=== PATIENT | male | born 1960 | race Caucasian/White ===

== ENCOUNTER → 2018-01-04 11:10 | Outpatient (CLI) | payer BC, SELFPAY ==
[2018-01-04 11:37] LABS: Alanine Aminotransferase 37 U/L (12-78); Albumin Level 4.3 gm/dL (3.4-5.0); Alkaline Phosphatase 77 U/L (46-116); Anion Gap 10.9 mEq/L (5-15); Aspartate Amino Transferase 18 U/L (15-37); Bilirubin,Direct 0.3 mg/dL (0.0-0.2); Bilirubin,Total 1.5 mg/dL (0.2-1.0); Blood Urea Nitrogen 13 mg/dL (7-18); Carbon Dioxide 29 mmol/L (21.0-32.0); Chloride 101 mmol/L (98-107); Chol/HDL Ratio 5.3 (1-3.5); Cholesterol 165 mg/dL (140-200); Creatinine,Serum 1.06 mg/dL (0.70-1.30); Estimated Glomerular Filt Rate 72 ml/min (>60); GFR (African American) 87 ML/MIN (>60); Glucose 108 mg/dL (74-106); HDL Cholesterol 31 mg/dL (27-67); LDL Cholesterol 64 mg/dL (0-130); Potassium 3.9 mmoL/L (3.5-5.1); Sodium 137 mmol/L (136-145); Total Protein,Serum 8.1 gm/dL (6.4-8.2); Triglycerides 352 mg/dL (30-200); VLDL Cholesterol 70 mg/dL (0-40)
== END ==
PROVIDERS: Visit Provider Internal Medicine Cardiovascular Disease
DX: I25.10 Atherosclerotic heart disease of native coronary artery without angina pectoris (principal); I10 Essential (primary) hypertension; E78.5 Hyperlipidemia, unspecified; I51.9 Heart disease, unspecified; I27.20 Pulmonary hypertension, unspecified; Z95.5 Presence of coronary angioplasty implant and graft; G47.33 Obstructive sleep apnea (adult) (pediatric)
CPT/HCPCS: 36415; 80048; 80061; 80076

== ENCOUNTER → 2018-01-17 08:58 | Outpatient (CLI) | payer BC, SELFPAY ==
[2018-01-17 10:17] LABS: Chol/HDL Ratio 5.4 (1-3.5); Cholesterol 150 mg/dL (140-200); HDL Cholesterol 28 mg/dL (27-67); LDL Cholesterol 82 mg/dL (0-130); Triglycerides 200 mg/dL (30-200); VLDL Cholesterol 40 mg/dL (0-40)
== END ==
PROVIDERS: Visit Provider Physician Assistant
DX: E78.5 Hyperlipidemia, unspecified (principal); I10 Essential (primary) hypertension; Z95.5 Presence of coronary angioplasty implant and graft; I25.10 Atherosclerotic heart disease of native coronary artery without angina pectoris; I51.9 Heart disease, unspecified; I27.20 Pulmonary hypertension, unspecified
CPT/HCPCS: 36415; 80061

== ENCOUNTER → 2019-03-20 09:13 | Outpatient (CLI) | payer BC, SELFPAY ==
[2019-03-20 11:08] LABS: Alanine Aminotransferase 33 U/L (12-78); Albumin Level 4.2 gm/dL (3.4-5.0); Alkaline Phosphatase 70 U/L (46-116); Aspartate Amino Transferase 17 U/L (15-37); Bilirubin,Direct 0.1 mg/dL (0.0-0.2); Bilirubin,Indirect 0.7 mg/dL (0.0-0.9); Bilirubin,Total 0.8 mg/dL (0.2-1.0); Chol/HDL Ratio 5.2 (1-3.5); Cholesterol 150 mg/dL (140-200); HDL Cholesterol 29 mg/dL (27-67); LDL Cholesterol 73 mg/dL (0-130); Total Protein,Serum 7.7 gm/dL (6.4-8.2); Triglycerides 238 mg/dL (30-200); VLDL Cholesterol 48 mg/dL (0-40)
== END ==
PROVIDERS: Visit Provider Internal Medicine Cardiovascular Disease
DX: E78.5 Hyperlipidemia, unspecified (principal); I25.10 Atherosclerotic heart disease of native coronary artery without angina pectoris; G47.33 Obstructive sleep apnea (adult) (pediatric); I10 Essential (primary) hypertension; I27.20 Pulmonary hypertension, unspecified; I51.89 Other ill-defined heart diseases; R94.31 Abnormal electrocardiogram [ECG] [EKG]; Z95.5 Presence of coronary angioplasty implant and graft; E11.9 Type 2 diabetes mellitus without complications
CPT/HCPCS: 36415; 80061; 80076

== ENCOUNTER 2019-04-02 14:45 | Outpatient (RCR) | payer BC, SELFPAY | END 2019-06-27 15:33 | disposition home or self-care (01) | LOC: PT 14:45 | PROVIDERS: Visit Provider Family Medicine | DX: I25.10 Atherosclerotic heart disease of native coronary artery without angina pectoris (principal) | CPT/HCPCS: 93798 ==

== ENCOUNTER → 2019-07-01 09:21 | Outpatient (CLI) | payer BC, SELFPAY ==
[2019-07-01 11:06] LABS: Alanine Aminotransferase 37 U/L (12-78); Albumin Level 4.1 gm/dL (3.4-5.0); Alkaline Phosphatase 59 U/L (46-116); Aspartate Amino Transferase 15 U/L (15-37); Bilirubin,Direct 0.1 mg/dL (0.0-0.2); Bilirubin,Indirect 0.7 mg/dL (0.0-0.9); Bilirubin,Total 0.8 mg/dL (0.2-1.0); Chol/HDL Ratio 4.9 (1-3.5); Cholesterol 128 mg/dL (140-200); HDL Cholesterol 26 mg/dL (27-67); LDL Cholesterol 66 mg/dL (0-130); Total Protein,Serum 7.2 gm/dL (6.4-8.2); Triglycerides 179 mg/dL (30-200); VLDL Cholesterol 36 mg/dL (0-40)
== END ==
PROVIDERS: Visit Provider Internal Medicine Cardiovascular Disease
DX: E78.5 Hyperlipidemia, unspecified (principal); I25.10 Atherosclerotic heart disease of native coronary artery without angina pectoris; I51.89 Other ill-defined heart diseases
CPT/HCPCS: 36415; 80061; 80076

== ENCOUNTER → 2019-09-24 06:16 | Outpatient (CLI) | payer BC, SELFPAY ==
--- NOTE | 2019-09-24 | CA_ITS ---
APPROVED REPORT Exam: Exercise Treadmill Technologist: Emelyn Thompson Ht: 5 ft 10 in Wt: 235 lbs BSA: 2.24 m2 HR: 62 bpm BP: 134/80 mmHg Indications: CAD Medical History Medications: Aspirin,,,,, Metoprolol,,,,, Simvastatin,,,,, Coenzyme,,,,, Losartan,,,,, Pantoprazole,,,,, CloPIdogrel,,,,, ICOSAPENT,,,,, Stress Test Details Test: Vishal HR Resting HR: 70 bpm Max Heart Rate (APMHR): 163 bpm Max HR Achieved: 146 bpm Target HR (85% APMHR): 138 bpm % of APMHR: 89 Recovery HR: 93 bpm BP Resting BP: 134.0/80.0 mmHg Max BP: 157.0/89.0 mmHg Recovery BP: 157.0/89.0 mmHg ECG Clinical Exercise duration: 07:32 min Highest Stage Achieved: Exercise capacity: 10.1 METs Stress ECG Conclusion Resting ECG: Sinus rhythm Vishal protocol completed. Patient exercised 07:32. Test stopped due to dizziness. Symptoms: Complained of dizziness at peak exercise. Resolved in recovery. No chest pain. No shortness of breath. Arrhythmias/Ectopy: No ectopy noted. ST-T Changes: less than 1.[address] depression. Conclusion: Images to follow. Test Summary REST . . . . . . . Sitting REST 09:19 0.0 0.0 70 . 134/ 80 . . Stage 1 01:00 10.0 1.7 84 . . . . Stage 1 02:00 10.0 1.7 97 . . . . Stage 1 03:00 10.0 1.7 100 . 138/ 82 . . Stage 2 01:00 12.0 2.5 110 . . . . Stage 2 02:00 12.0 2.5 123 . . . . Stage 2 03:00 12.0 2.5 130 . 140/ 82 . . Stage 3 01:00 14.0 3.4 140 . . . . Stage 3 01:32 14.0 3.4 145 . . . Stop exercise at 07:32 RECOVERY 01:00 0.0 0.0 132 . 154/ 80 . . RECOVERY 02:00 0.0 0.0 116 . 154/ 80 . . RECOVERY 03:00 0.0 0.0 105 . 143/ 84 . . RECOVERY 04:00 0.0 0.0 98 . 143/ 84 . . RECOVERY 04:33 0.0 0.0 92 . 157/ 89 . . Electronically signed by : Elmer Galarza, 09/25/2019 10:06:40
--- NOTE | 2019-09-24 06:18 | CA_ITS ---
APPROVED REPORT EXAM: Comprehensive 2D, Doppler, and color-flow Echocardiogram Ring Facer: Mackenzie Worthington RVT Ht: 5 ft 7 in Wt: 236lbs BSA: 2.17 BP: 129/72 mmHg Indications: Shortness of Breath, Diabetes, CAD, Hyperlipidemia, Hypertension,Stents,CARLOS,Pul HTN 2D Dimensions LVOT 2.04 cm (M/F) 1.5-2.5 M-Mode Dimensions RVDd 2.33 cm (0.9-2.6) LA Diam 3.40 cm (1.9-4.0) LVDd 5.30 cm (3.5-5.7) Ao Diam 3.20 cm (2.0-3.7) LVDs 2.67 cm (3.5-5.7) AV Cusp 2.40 cm (1.5-2.6) IVSd 0.80 cm (0.6-1.1) PWd 0.65 cm (0.6-1.1) EF (Teich) 80.60% FS 49.60% EDV (Teich) 135.30 mL ESV (Teich) 26.30 mL LV Diastology E/A Ratio 0.88 Mitral Valve MV A Velocity 50.00 (40-130 cm/s) Left Ventricle Left atrium is mildly enlarged, left ventricle is normal size, mild concentric left ventricular hypertrophy, visually estimated ejection fraction 55% with no regional wall motion abnormality. Grade 1 diastolic dysfunction seen without tissue Doppler evidence of raise left atrial pressure. Right Ventricle Right atrium and right ventricle moderately enlarged with normal contractility. Aortic Valve Aortic valve is minimally thickened and fibrosed, there is no aortic stenosis or aortic insufficiency. Mitral Valve Mitral valve is grossly normal, there is mild mitral regurgitation. Tricuspid Valve Tricuspid valve is grossly normal, there is mild tricuspid regurgitation. Tricuspid regurgitation jet velocity is inadequate for calculation of the right ventricular systolic pressure. Pulmonic Valve Pulmonic valve is poorly visualized. Cannot exclude pulmonic valve vegetation. Bio-prosthetic pulmonic valve is present. Great Vessels Aortic root is normal size. Pericardium No significant pericardial effusion noted. Conclusion 1. Biatrial enlargement, normal left ventricular size, mild concentric left ventricular hypertrophy, visually estimated ejection fraction 55% with no regional wall motion abnormality. Grade 1 diastolic dysfunction seen without tissue Doppler evidence of raise left atrial pressure. 2. Right atrium and right ventricle moderately enlarged with normal contractility. 3. The aortic valve is minimally thickened and fibrosed. There is no aortic stenosis aortic insufficiency. 4. Mild mitral and tricuspid regurgitation. 5. No significant pericardial effusion noted. Electronically signed by : Elmer Galarza, 09/25/2019 15:00:20
--- NOTE | 2019-09-24 06:39 | NM_ITS ---
APPROVED REPORT Exam: Nuclear Stress Test Indication: Chest pain, SOB, HTN, High choletsterol, Family History, CAD Patient Location: Outpatient Stress Tech: Emelyn Thompson PA Tech:Olivia Reno, ARRT, RT (R)(N) Ht: 5 ft 10 in Wt: 235 lbs HR: 62 bpm BP: 134/80 mmHg BSA: 2.24 m2 BMI: 33.7 History: Chest pain, SOB, HTN, High choletsterol, Family History, CAD Procedure: Patient exercised on Vishal protocol 7:32 minutes and sec, resting heart rate 62 bpm, resting blood pressure 134/80 mmHg, with exercise maximum heart rate achived was 146 bpm which is Greater than 85 % of the maximum predicted heart rate and blood pressure was 154/80 mmHg. Test was stopped due to dizziness. Patient denied any complaint of chest pain. Patient has Good exercise capacity, achieved 10.1 METs of workload on treadmill, the blood pressure response to exercise was Adequate. Electrocardiogram Resting electro cardiogram showed sinus rhythm, with exercise there is less than 1.[address] segment depression noted from the baseline EKG. The EKG portion of the exercise Myoview is negative for ischemia. Cardiac Stress and Resting SPECT Images: Cardiac Stress and Resting SPECT images were obtained using technetium 99m Myoview 31.8 mCi stress and 10.47 mCi at rest. Gated SPECT with analysis of segmental wall motion and calculation of the ejection fraction also done. Cardiac stress and resting SPECT images show uniform myocardial activity without segmental perfusion abnormality, computer derived ejection fraction is over 65% with no regional wall motion abnormality, right ventricle is normal size and contractility. Conclusion: 1. The EKG portion of the exercise Myoview is negative for ischemia, patient has good exercise capacity achieved 10.1 mets of workload on treadmill, the blood pressure response to exercise was adequate, there was no exercise-induced chest discomfort. 2. No scintigraphic evidence of reversible ischemia seen, computer derived ejection fraction is over 65% with no regional wall motion abnormality, right ventricle is normal size and contractility. 3. Normal exercise Myoview study. Electronically signed by : Elmer Galarza, 09/25/2019 10:11:46
--- NOTE | 2019-09-24 07:10 | HMH.ITSHM ---
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 []SIMVASTATIN PANTOPRAZOLE METOPROLOL LOSARTAN ICOSAPENT COENZYME CLOPIDOGREL ASA
== END ==
PROVIDERS: PCP Family Medicine; Visit Provider Nurse Practitioner Family
DX: R07.89 Other chest pain (principal); R06.09 Other forms of dyspnea; I25.10 Atherosclerotic heart disease of native coronary artery without angina pectoris; I27.20 Pulmonary hypertension, unspecified; E78.2 Mixed hyperlipidemia; E11.9 Type 2 diabetes mellitus without complications; I10 Essential (primary) hypertension; G47.33 Obstructive sleep apnea (adult) (pediatric); Z95.5 Presence of coronary angioplasty implant and graft
CPT/HCPCS: 78452; 93017; 93306; A9502

== ENCOUNTER → 2020-04-14 07:44 | Outpatient (CLI) | payer BC, SELFPAY ==
--- NOTE | 2020-04-14 | CA_ITS ---
APPROVED REPORT Exam: Pharmacologic Technologist: Mindi Josue Ht: 5 ft 9 in Wt: 237 lbs BSA: 2.22 m2 HR: 53 bpm BP: 134/81 mmHg Indications: SOB Medical History Medications: coenzyme, levocetirizine, asa, losartan, metoprolol, clopidogrel, pantoprazole, simvastatin Allergies: Icosapent ethyl Cardiac Risk Factors: HTN, Hyperlipidemia Stress Test Details Test: Kristyn HR Resting HR: 53 bpm Max Heart Rate (APMHR): 162 bpm Max HR Achieved: 80 bpm Target HR (85% APMHR): 137 bpm % of APMHR: 49 Recovery HR: 69 bpm BP Resting BP: 134/81 mmHg Max BP: 141/80 mmHg Recovery BP: 124.0/89.0 mmHg ECG Resting ECG: Sinus Bradycardia Clinical Exercise duration: 04:01 min Highest Stage Achieved: Exercise capacity: 1.0 METs Stress ECG Conclusion Brief SOA and malaise. No chest pain. No ectopy. No significant ST changes, Unremarkable Lexiscan. Images reported separtely. Test Summary REST . . . . . . . Resting REST 02:27 . . 57 . 134/ 81 . . Stage 1 01:00 . . 74 . . . . Stage 2 01:00 . . 72 . 141/ 80 . . Stage 3 01:00 . . 71 . 136/ 77 . . Stage 4 01:00 . . 74 . 122/ 76 . . Stage 4 01:01 . . 74 . 122/ 76 . Stop exercise at 04:01 RECOVERY 01:00 . . 69 . . . . RECOVERY 02:00 . . 66 . 129/ 85 . . RECOVERY 03:00 . . 61 . 129/ 85 . . RECOVERY 03:30 . . 63 . 139/ 79 . . Electronically signed by : Elmer Galarza, 04/15/2020 09:27:11
--- NOTE | 2020-04-14 07:44 | NM_ITS ---
APPROVED REPORT Exam: Nuclear Stress Test Indication: Chest pain, SOB, HTN, CAD, Hx of [place], High cholesterol, Former tobacco use, Family history Patient Location: Outpatient Stress Tech: Shameka Salas [place] Tech:Olivia Reno, ARRT, RT (R)(N) Ht: 5 ft 9 in Wt: 237 lbs HR: 53 bpm BP: 134/81 mmHg BSA: 2.22 m2 BMI: 34.9 History: Chest pain, SOB, HTN, CAD, Hx of [place], High cholesterol, Former tobacco use, Family history Procedure: Patient received a 0.4 mg of intravenous Lexiscan, resting heart rate 53 bpm, resting blood pressure 134/81 mmHg, with Lexiscan maximum heart rate achived was 75 bpm which is Less than 85 % of the maximum predicted heart rate and blood pressure was 141/80 mmHg. With Lexiscan, patient denied any complaint of chest pain. Electrocardiogram Resting electrocardiogram showed sinus rhythm, with Lexiscan there is less than 1.[address] segment depression noted from the baseline EKG. The EKG portion of the Lexiscan Myoview is nondiagnostic. Cardiac Stress and Resting SPECT Images: Cardiac Stress and Resting SPECT images were obtained using technetium 99m Myoview 30.8 mCi stress and 10.12 mCi at rest. Gated SPECT with analysis of segmental wall motion and calculation of the ejection fraction also done. Cardiac stress and resting SPECT images show a fixed defect in the apex with normal contractility on gated SPECT is likely secondary to apical thinning, no reversible ischemia seen. Computer derived ejection fraction is 64% with no regional wall motion abnormality, right ventricle is normal size and contractility. Conclusion: 1. The EKG portion of the Lexiscan Myoview is nondiagnostic. 2. No scintigraphic evidence of reversible ischemia seen, computer derived ejection fraction 64% with no regional wall motion abnormality, right ventricle is normal size and contractility. 3. Likely normal Lexiscan Myoview study. Electronically signed by : Elmer Galarza, 04/15/2020 09:30:22
--- NOTE | 2020-04-14 09:14 | HMH.ITSHM ---
Current Home Medications as stated by this patient Rudi Hyman or statement services representative. []SIMVASTATIN PANTOPRAZOLE METOPROLOL LOSARTAN LEVOCETIRIZINE COENZYME CLOPIDOGREL ASA
== END ==
PROVIDERS: PCP Family Medicine; Visit Provider Internal Medicine Cardiovascular Disease
DX: R06.09 Other forms of dyspnea (principal); R94.31 Abnormal electrocardiogram [ECG] [EKG]; E11.9 Type 2 diabetes mellitus without complications; E78.2 Mixed hyperlipidemia; I10 Essential (primary) hypertension; I25.10 Atherosclerotic heart disease of native coronary artery without angina pectoris; I27.20 Pulmonary hypertension, unspecified; G47.33 Obstructive sleep apnea (adult) (pediatric); Z95.5 Presence of coronary angioplasty implant and graft
CPT/HCPCS: 78452; 93017; A9502; J2785

== ENCOUNTER 2020-07-10 13:45 | Emergency (ER) | payer BC, SELFPAY ==
[2020-07-10 14:28] VITALS: BP 122/74; PULSE 68; RESP 19; TEMP 36.6; O2SAT 97; BMI 32.1
--- NOTE | 2020-07-10 15:06 | HMH.EDUTC ---
[facility] Disposition Clinical Impression: Wasp sting Qualifiers: Encounter type: initial encounter Injury intent: accidental or unintentional Qualified Code(s): T63.461A - Toxic effect of venom of wasps, accidental (unintentional), initial encounter Disposition: Home, Self-Care Condition on Discharge: Good Instructions: Insect Bites and Stings Additional Instructions: Drink plenty of fluids. Take tylenol or ibuprofen for pain. Take the medications as directed. Follow up with your regular doctor. GO TO THE ER FOR ANY WORSENING SYMPTOMS Don't start the oral steroids until tomorrow, since you had the shot here today. Prescriptions: methylPREDNISolone [Medrol] 4 mg PO DIRECTED 6 Days #21 [email or web address] Transmission Status: Received by [facility] Referrals: Philipp Schwarz MD [Primary Care Provider] - Time of Disposition: 15:10 Medical Decision Making - Medical Records Medical records reviewed: No: I reviewed the patient's medical records. - Maik Inquiry Pt receiving controlled substance: No Vital Signs: 07/10/20 14:28 07/10/20 15:30 Temperature 97.8 F 97.8 F Temperature Source Oral Pulse Rate 68 Pulse Rate [Right Brachial] 68 Respiratory Rate 19 19 Blood Pressure 122/74 Blood Pressure [Right Arm] 122/74 Blood Pressure Mean [Right Arm] 90 Blood Pressure Source [Right Arm] Automatic Cuff Blood Pressure Position [Right Arm] Sitting 02 Sat by Pulse Oximetry 97 Oxygen Delivery Method Room Air Orders (Tests/Meds): ED MEDICATIONS Discontinued Medications Generic Name Dose Route Start Last Admin Trade Name Freq PRN Reason Stop Dose Admin Methylprednisolone Sodium Succinate 125 mg 07/10/20 14:42 07/10/20 14:46 Solu-Medrol 125mg/2ml Vial IM 07/10/20 14:43 125 mg ONCE ONE Administration [facility] HPI - General Stated complaint: Wasp sting, swollen neck Time Seen by Provider: 07/10/20 14:30 Mode of Arrival: Ambulatory Source of Information: Patient Limitations: No Limitations Description of Symptoms (Recalled from Triage Doc. by RN): PATIENT C/O SWELLING IN HIS NECK AFTER GETTING STUNG BY A WASP ON HIS LEFT EAR YESTERDAY HEENT Symptoms (Recalled from RN notes): No Resp Symptoms (Recalled from RN notes): No Skin Symptoms (Recalled from RN notes): No MS Symptoms (Recalled from RN notes): No Functional Status (Recalled from RN notes): WNL - History of Present Illness Provider Complaint: He c/o swelling on the left side of his face and neck. He was stung by a wasp on his left ear yesterday. - Related Data Home Medications Medication Instructions Recorded Confirmed aspirin 81 mg tablet,delayed 81 mg PO ONCE tab 12/27/17 06/03/20 release coenzyme Q10 10 mg capsule 10 mg PO ONCE 12/28/17 06/03/20 levocetirizine 5 mg tablet 5 mg PO QPM PRN 04/08/20 06/03/20 Previous Rx's Medication Instructions Recorded clopidogrel 75 mg tablet 75 mg PO DAILY #90 tab 07/23/19 simvastatin 40 mg tablet 40 mg PO DAILY #90 tab 07/23/19 metoprolol tartrate 25 mg tablet 25 mg PO ONCE #90 tab 12/05/19 losartan 50 mg tablet 50 mg PO DAILY #30 tab 04/29/20 ranolazine 500 mg tablet,extended 500 mg PO BID #60 tab 04/29/20 release,12 hr pantoprazole 40 mg tablet,delayed 40 mg PO DAILY #90 tab 05/31/20 release methylPREDNISolone [Medrol] 4 mg PO DIRECTED 6 Days #21 07/10/20 tab.[email or web address] Allergies Allergy/AdvReac Type Severity Reaction Status Date / Time icosapent ethyl AdvReac Intermediate myalgias Verified 06/03/20 13:31 [From [place]] - Worker's Comp Is this a Worker's Comp case?: No H History - Hepatitis A Screen Drug use history?: No High risk sexual behaviors?: No History of sexually transmitted infection?: No Currently employed?: No Childcare worker?: No Do you have indoor plumbing?: Yes Do you have electricity?: Yes Attestation statement:: This patient has been screened for Hepatitis A risk factors. I have reviewed the pat
[2020-07-10 15:30] VITALS: BP 122/74; PULSE 68; RESP 19; TEMP 36.6; O2SAT 97
== END 2020-07-10 15:33 | disposition home or self-care (01) ==
PROVIDERS: Emergency Provider Nurse Practitioner Family; PCP Family Medicine
DX: T63.461A Toxic effect of venom of wasps, accidental (unintentional), initial encounter (principal); I25.10 Atherosclerotic heart disease of native coronary artery without angina pectoris; E11.9 Type 2 diabetes mellitus without complications; K21.9 Gastro-esophageal reflux disease without esophagitis; I10 Essential (primary) hypertension; E78.5 Hyperlipidemia, unspecified; Z79.899 Other long term (current) drug therapy
CPT/HCPCS: 96372; 99201

== ENCOUNTER → 2020-09-09 10:50 | Outpatient (CLI) | payer BC, SELFPAY ==
--- NOTE | 2020-09-09 10:51 | CA_ITS ---
APPROVED REPORT EXAM: Comprehensive 2D, Doppler, and color-flow Echocardiogram Turn Machine Operator: Sarah Garcia CRT Ht: 5 ft 7 in Wt: 244lbs BSA: 2.20 BP: 109/76 mmHg Indications: Hyperlipidemia, Hypertension/HDD, CAD, stent, PHTN 2D Dimensions LVOT 1.85 cm (M/F) 1.5-2.5 M-Mode Dimensions RVDd 3.02 cm (0.9-2.6) LA Diam 3.30 cm (1.9-4.0) LVDd 4.49 cm (3.5-5.7) Ao Diam 3.77 cm (2.0-3.7) LVDs 2.51 cm (3.5-5.7) IVSd 1.48 cm (0.6-1.1) PWd 0.74 cm (0.6-1.1) EF (Teich) 75.50% FS 44.10% EDV (Teich) 92.00 mL ESV (Teich) 22.50 mL LV Diastology E Decel Time 260.00 (160-240 msec) E/A Ratio 0.99 MED E' 7.80 (< 7 cm/sec) E'/MED E' Ratio 7.97 (>14) LAT E' 6.90 (<10 cm/sec) E/LAT E' Ratio 9.01 (>14) Aortic Valve AO Peak GR. 4.80 mmHg Mitral Valve MV A Velocity 63.00 (40-130 cm/s) E/A Ratio 0.99 MV Decel. Time 260.00 (160-240 ms) Pulmonary Valve PV Peak Velocity 72.00 (50-150 cm/s) Tricuspid Valve TR P. Velocity 178.00 cm/s RAP Estimate 10.00 mmHg RVSP 22.70 mmHg Left Ventricle Left atrium is mildly enlarged, left ventricle is normal size, mild concentric left ventricular hypertrophy, visually estimated ejection fraction 55% with no regional wall motion abnormality, grade 1 diastolic dysfunction seen without tissue Doppler evidence of raise left atrial pressure. Right Ventricle Right atrium and right ventricle are mildly enlarged with normal contractility. Aortic Valve Aortic valve is minimally thickened and fibrosed, there is no aortic stenosis or aortic insufficiency. Mitral Valve Mitral valve is grossly normal, there is mild mitral regurgitation. Tricuspid Valve Tricuspid valve is grossly normal, there is mild tricuspid regurgitation, tricuspid regurgitation jet velocity is inadequate for calculation of the right ventricular systolic pressure. Pulmonic Valve Pulmonic valve is poorly visualized. Great Vessels Aortic root is normal size. Pericardium No significant pericardial effusion noted. Conclusion 1. Mild biatrial enlargement, normal left ventricular size, mild concentric left ventricular hypertrophy, visually estimated ejection fraction 55% with no regional wall motion abnormality, grade 1 diastolic dysfunction seen without tissue Doppler evidence of raise left atrial pressure. 2. Mildly enlarged right ventricle with normal contractility. 3. Mild mitral and tricuspid regurgitation. 4. No significant pericardial effusion noted. Electronically signed by : Elmer Galarza, 09/09/2020 16:12:59
[2020-09-09 12:51] LABS: Chloride 104 mmol/L (98-107); Sodium 141 mmol/L (136-145)
[2020-09-09 12:53] LABS: Blood Urea Nitrogen 11 mg/dl (9-20)
[2020-09-09 12:54] LABS: Alanine Aminotransferase 23 U/L (12-78); Albumin Level 4.3 g/dl (3.5-5.0); Alkaline Phosphatase 52 U/L (38-126); Aspartate Amino Transferase 25 U/L (17-59); Bilirubin,Direct 0.1 mg/dl (0.0-0.4); Bilirubin,Indirect 1.1 mg/dL (0.0-0.9); Bilirubin,Total 1.2 mg/dl (0.2-1.3); Bilirubin,Unconjugated 1.2 mg/dL (0.0-1.1); Calcium 8.8 mg/dl (8.4-10.2); Carbon Dioxide 29 mmol/L (22.0-30.0); Cholesterol 137 mg/dl (140-200); Estimated Glomerular Filt Rate 87 ml/min (>60); GFR (African American) 105 ML/MIN (>60); Glucose 112 mg/dl (74-100); Triglycerides 235 mg/dl (30-150); VLDL Cholesterol 47 mg/dL (0-40)
[2020-09-09 12:55] LABS: Chol/HDL Ratio 4.9 (1-3.5); HDL Cholesterol 28 mg/dl (40-60)
== END ==
PROVIDERS: PCP Family Medicine; Visit Provider Internal Medicine Cardiovascular Disease
DX: R06.00 Dyspnea, unspecified (principal); I25.10 Atherosclerotic heart disease of native coronary artery without angina pectoris; I27.20 Pulmonary hypertension, unspecified; I51.9 Heart disease, unspecified; E11.9 Type 2 diabetes mellitus without complications; E78.2 Mixed hyperlipidemia; I10 Essential (primary) hypertension; G47.33 Obstructive sleep apnea (adult) (pediatric); Z95.5 Presence of coronary angioplasty implant and graft
CPT/HCPCS: 36415; 80048; 80061; 80076; 93306

== ENCOUNTER → 2020-10-04 09:15 | Outpatient (CLI) | payer BC, SELFPAY ==
[2020-10-04 10:35] LABS: Basophils # 0.1 K/mm3 (0-0.2); Basophils % 0.9 % (0.1-2.0); Eosinophils % 0.6 % (0.1-12.0); Hematocrit 46.6 % (42.0-52.0); Hemoglobin 16.1 g/dL (14.1-18.0); Lymphocytes # 2.8 K/mm3 (0.7-4.5); Lymphocytes % 40.2 % (10-50); Mean Corpuscular HGB Conc 34.5 g/dL (31.8-35.4); Mean Corpuscular Hemoglobin 32.5 pg (27.0-31.2); Mean Corpuscular Volume 94.2 fl (80-94); Mean Platelet Volume 7.5 fl (7.4-10.4); Monocytes # 0.5 K/mm3 (0.1-1.0); Monocytes % 6.5 % (1.7-9.3); Neutrophils # 3.6 K/mm3 (1.8-7.8); Neutrophils % 51.8 % (37.0-80.0); Platelet Count 203 K/mm3 (142-424); Red Blood Count 4.95 M/mm3 (4.60-6.20); Red Cell Distribution Width 13.4 % (11.5-17.5)
[2020-10-04 11:05] LABS: Chloride 98 mmol/L (98-107); Sodium 138 mmol/L (136-145)
[2020-10-04 11:06] LABS: Potassium 4.4 mmoL/L (3.5-5.1)
[2020-10-04 11:08] LABS: Blood Urea Nitrogen 14 mg/dl (9-20); Estimated Glomerular Filt Rate 69 ml/min (>60); GFR (African American) 83 ML/MIN (>60)
[2020-10-04 11:09] LABS: Anion Gap 13.4 mEq/L (5-15); Calcium 9.7 mg/dl (8.4-10.2); Carbon Dioxide 31 mmol/L (22.0-30.0); Glucose 123 mg/dl (74-100)
[2020-10-04 11:26] LABS: Coronavirus 19 IgG Antibody Negative (Negative); Coronavirus 19 IgM Antibody Negative (Negative)
== END ==
PROVIDERS: Visit Provider Internal Medicine
DX: Z01.818 Encounter for other preprocedural examination (principal); I25.10 Atherosclerotic heart disease of native coronary artery without angina pectoris
CPT/HCPCS: 36415; 80048; 85025; 86328

== ENCOUNTER 2020-10-05 08:19 | Day surgery (SDC) | payer BC, SELFPAY ==
[2020-10-05] VITALS (13 sets, daily range): BP systolic 100–142; BP diastolic 47–97; PULSE 63–76; RESP 16–18; O2SAT 92–95; BMI 38.0
--- NOTE | 2020-10-05 | IR_ITS ---
APPROVED REPORT Patient Location: Outpatient PROCEDURES Left heart catheterization Left ventriculogram Selective coronary angiogram INDICATION Known coronary artery disease, Typical angina pectoris Informed consent was obtained prior to the procedure. COMPLICATIONS NONE Estimated Blood Loss: LESS THAN 10 ML TECHNIQUE One percent lidocaine used to anesthetize the right anterior aspect of the wrist. The right radial artery was accessed via the Seldinger technique. A 6 [place] sheath was placed in the right radial artery. 2.5 mg of verapamil, 800 mcg of nitroglycerin, 1mg Lidocaine and 5000 U Heparin were given through the arterial sheath. The trap catheter was also used to perform left heart catheterization, left ventriculogram and selective coronary angiogram. At the end of the procedure the sheath was removed good hemostasis was achieved using Traclet band, patient was transferred to the postop holding area in stable condition. ANGIOGRAPHIC RESULTS The left main artery Has a distal hazy 20% stenosis The left anterior descending artery Has a stent from the proximal through mid segment which has 50 to 60% in-stent restenosis distal to the first diagonal artery. The circumflex artery Is nondominant and has proximal 50% stenosis supplying a small obtuse marginal artery The right coronary artery Is a large dominant vessel and has proximal 30% with mid vessel 40% stenoses. Distally the stent in the right coronary artery is patent until the bifurcation which then has a 50% stenosis proximal to the large bifurcating vessels with an 80% concentric stenosis in a large proximal posterior descending artery and 60% stenosis in a large posterior lateral branch The LANGFORD ventriculogram reveals Normal 65% The left ventricular end-diastolic pressure 10 mm Hg IMPRESSION Coronary artery disease as described above Normal ejection fraction Normal left ventricular end-diastolic pressure PLAN 1. I am most concerned about the bifurcation involving the distal dominant large right coronary artery. Given the large amount of myocardium these two-vessel supply I would recommend patient be evaluated for coronary bypass surgery. While the LAD could be fairly easily stented I believe the STEINER graft to the LAD would probably be better long-term when considering the bifurcating disease involving the right coronary. I would like for patient to have CT surgery consultation. If the decision is to proceed with stenting patient can be brought back in the future for stenting as described 2. Continue risk factor modification 3. Continue antianginal medications Electronically signed by : Wilfred Win, 10/05/2020 11:06:34
== END 2020-10-05 13:23 | disposition home or self-care (01) ==
LOC: CATHLAB 08:21
PROVIDERS: PCP Family Medicine; Visit Provider Internal Medicine
DX: I25.118 Atherosclerotic heart disease of native coronary artery with other forms of angina pectoris (principal); T82.855A Stenosis of coronary artery stent, initial encounter; I11.0 Hypertensive heart disease with heart failure; I50.30 Unspecified diastolic (congestive) heart failure; I27.20 Pulmonary hypertension, unspecified; E11.9 Type 2 diabetes mellitus without complications; E78.5 Hyperlipidemia, unspecified; Z87.891 Personal history of nicotine dependence; Z79.82 Long term (current) use of aspirin; Z79.01 Long term (current) use of anticoagulants; Z79.899 Other long term (current) drug therapy
CPT/HCPCS: 93458; 99152; 99153; C1725; C1769; J1644; Q9967

== ENCOUNTER 2020-11-29 02:13 | Emergency (ER) | payer BC, SELFPAY ==
[2020-11-29 02:14] VITALS: BP 188/107; PULSE 88; RESP 16; TEMP 36.6; O2SAT 98; BMI 34.1
--- NOTE | 2020-11-29 02:32 | ECG_ITS ---
APPROVED REPORT Exam: Resting ECG HR:62 bpm ECG Measurements Heart Rate 62 AXES WI 146 P 47 QRSd 74 QRS 2 QT 416 T 2 QTc 422 Conclusion Normal sinus rhythm Left atrial abnormality Borderline ECG Electronically signed by : Philipp Mosher, 11/29/2020 19:37:03
--- NOTE | 2020-11-29 02:32 | XR_ITS ---
PROCEDURE: XR CHEST 2V CLINICAL HISTORY: post op double bypass Pain, nausea COMPARISON: CR CXR1 CHEST-PORTABLE from 06/17/2017 FINDINGS: There has been an interval median sternotomy. Right hemidiaphragm is slightly elevated. Atelectatic changes are present in both lower lobes. Patchy density is present in the left lung base and may be due to an area of atelectasis or infiltrate. No acute bony abnormalities. IMPRESSION: Bibasilar atelectasis. Patchy density left lung base which may be due to an area of atelectasis or infiltrate Dictated by: Doc Carrasquillo MD 11/29/2020 05:00 Doc Carrasquillo MD in [facility] 11/29/2020 05:00
--- NOTE | 2020-11-29 02:32 | CT_ITS ---
PROCEDURE: CT ABDOMEN PELVIS W CON CLINICAL INDICATION: RUQ pain Right upper quadrant pain nausea COMPARISON: No exams were available for comparison TECHNIQUE: IV Contrast: 75ML Isovue 370 Oral Contrast None Axial images obtained with sagittal and coronal reformats. All CT scans at the facility use one or more dose reduction, viz: automated exposure control, ma/kV adjustment per patient size (including targeted exams where dose is matched to indication, i.e. head), or iterative reconstruction technique. FINDINGS: LOWER THORAX: Prior median sternotomy. There are atelectatic changes in the lung bases. Multiple small calcified nodules are present in the right middle lobe and there are calcified nodes in the right hilum. Coronary artery calcifications and/or stents noted. ABDOMEN & PELVIS: Elevated right hemidiaphragm. There is a 4 mm hypodensity in the hepatic dome and may be due to small cyst. The spleen, adrenal glands, pancreas, and kidneys have an unremarkable appearance. There is colonic diverticulosis. No evidence of diverticulitis. No evidence of appendicitis. No intestinal obstruction or free air. Gallbladder is somewhat distended with mild thickening of the wall. No radiopaque stones are evident. Postsurgical changes are present from recent thoracotomy. No acute bony findings. IMPRESSION: 1. Distended gallbladder with mildly thickened wall. Acute cholecystitis is a consideration. Consider gallbladder ultrasound for further evaluation. 2. Colonic diverticulosis. No evidence of diverticulitis. 3. Bibasilar atelectasis Dictated by: Doc Carrasquillo MD 11/29/2020 05:17 Doc Carrasquillo MD in [facility] 11/29/2020 05:17
[2020-11-29 02:42] LABS: Basophils # 0.1 K/mm3 (0-0.2); Basophils % 0.4 % (0.1-2.0); Eosinophils # 0.1 K/mm3 (0.0-0.4); Eosinophils % 0.6 % (0.1-12.0); Hematocrit 43.1 % (42.0-52.0); Hemoglobin 13.9 g/dL (14.1-18.0); Lymphocytes # 2.3 K/mm3 (0.7-4.5); Lymphocytes % 15.8 % (10-50); Mean Corpuscular HGB Conc 32.3 g/dL (31.8-35.4); Mean Corpuscular Hemoglobin 30.4 pg (27.0-31.2); Mean Corpuscular Volume 94.2 fl (80-94); Mean Platelet Volume 8.4 fl (7.4-10.4); Monocytes # 0.9 K/mm3 (0.1-1.0); Neutrophils # 11.2 K/mm3 (1.8-7.8); Neutrophils % 77.2 % (37.0-80.0); Platelet Count 270 K/mm3 (142-424); Red Blood Count 4.58 M/mm3 (4.60-6.20); Red Cell Distribution Width 14.4 % (11.5-17.5); White Blood Count 14.5 K/mm3 (4.8-10.8)
[2020-11-29 02:44] VITALS: BP 186/95; PULSE 84; RESP 16; O2SAT 97
[2020-11-29 02:46] LABS: Chloride 101 mmol/L (98-107); Potassium 3.4 mmoL/L (3.5-5.1); Sodium 140 mmol/L (136-145)
[2020-11-29 02:49] LABS: Amylase 35 U/L (30-110); Anion Gap 13.4 mEq/L (5-15); Bilirubin,Unconjugated 0.8 mg/dL (0.0-1.1); Blood Urea Nitrogen 10 mg/dl (9-20); Carbon Dioxide 29 mmol/L (22.0-30.0); Creatinine Clearance Estimated 119 mL/min (50-200); Estimated Glomerular Filt Rate 77 ml/min (>60); GFR (African American) 93 ML/MIN (>60)
[2020-11-29 02:50] LABS: Alanine Aminotransferase 22 U/L (12-78); Albumin Level 4.7 g/dl (3.5-5.0); Alkaline Phosphatase 97 U/L (38-126); Aspartate Amino Transferase 23 U/L (17-59); Bilirubin,Direct 0.3 mg/dl (0.0-0.4); Bilirubin,Indirect 0.8 mg/dL (0.0-0.9); Bilirubin,Total 1.1 mg/dl (0.2-1.3); Calcium 9.7 mg/dl (8.4-10.2); Glucose 183 mg/dl (74-100); Lipase 49 U/L (23-300); Total Protein,Serum 8.6 g/dl (6.3-8.2)
[2020-11-29 02:55] LABS: C-Reactive Protein 46.2 mg/L (0-4)
--- NOTE | 2020-11-29 02:59 | PC.NURSE ---
pt to RAD
[2020-11-29 03:07] LABS: Troponin I < 0.01 ng/ml (0.00-0.034)
[2020-11-29 03:08] LABS: Coronavirus 19 IgG Antibody Negative (Negative); Coronavirus 19 IgM Antibody Negative (Negative)
[2020-11-29 03:15] LABS: Erythrocyte Sedimentation Rate 58 mm/hr (0-20)
--- NOTE | 2020-11-29 03:24 | PC.NURSE ---
pt returned from RAD
[2020-11-29 03:39] LABS: Microscopic, Urine URINE MICROSCOPIC (MICROSCOPIC)
[2020-11-29 03:40] LABS: Procalcitonin 0.061 ng/mL (0.0-2.0)
[2020-11-29 03:41] LABS: Appearance,Urine CLEAR (Clear); Bilirubin,Urine Negative (Negative); Blood, Urine Negative (Negative); Color,Urine YELLOW (Yellow); Glucose,Urine (UA) Negative (Negative); Ketones,Urine Negative (Negative); Leukocyte Esterase,Urine Negative (Negative); Nitrate,Urine Negative (Negative); PH,Urine 5.5 (5.0-8.5); Protein,Urine Negative (Negative); Specific Gravity, Urine 1.015 (1.005-1.030); Urobilinogen,Urine 0.2 EU/dl (0.2)
[2020-11-29 03:49] LABS: Amorphous Sediment,Urine Trace /lpf; WBC,Urine Occasional #/hpf (0-3)
--- NOTE | 2020-11-29 04:00 | HMH.EDNVD ---
ED Disposition Clinical Impression: S/P CABG (coronary artery bypass graft) Abdominal pain Qualifiers: Abdominal location: right upper quadrant Qualified Code(s): R10.11 - Right upper quadrant pain Disposition: Home, Self-Care Condition on Discharge: Good Instructions: DI for Acute Abdominal Pain Additional Instructions: call pcp this am Referrals: Philipp Schwarz MD [Primary Care Provider] - - Critical Care Critical Care Time: No Attestation: On 11/29/20, the high probability of a clinically significant, sudden or life threatening deterioration of the following system(s) required my full and direct attention, intervention and personal management. The time I documented below is in addition to time spent performing reported procedures but includes the following listed in this critical care notation. Medical Decision Making - Medical Records Medical records reviewed: Yes: I reviewed the patient's medical records. - Maik Inquiry Pt receiving controlled substance: No Vital Signs: 11/29/20 02:14 11/29/20 02:44 Temperature 97.9 F Temperature Source Oral Pulse Rate [Left Radial] 88 84 Respiratory Rate 16 16 Blood Pressure [Right Arm] 188/107 H 186/95 H Blood Pressure Mean [Right Arm] 134 125 Blood Pressure Source [Right Arm] Automatic Cuff Automatic Cuff Blood Pressure Position [Right Arm] Sitting Sitting 02 Sat by Pulse Oximetry 98 97 Oxygen Delivery Method Room Air Room Air - Lab Data Lab results reviewed: Yes: I reviewed the patient's lab results. Lab Results 11/29/20 02:30: Sodium 140, Potassium 3.4 L, Chloride 101, Carbon Dioxide 29, Anion Gap 13.4, BUN 10, Creatinine 1.00, Estimated Creat Clear 119, Estimated GFR 77, Est GFR ( Amer) 93, Glucose 183 H, Calcium 9.7, Troponin I < 0.01, C-Reactive Protein 46.2 H, Amylase 35 11/29/20 02:30: WBC 14.5 H, RBC 4.58 L, Hgb 13.9 L, Hct 43.1, MCV 94.2 H, MCH 30.4, MCHC 32.3, RDW 14.4, Plt Count 270, MPV 8.4, Neut % (Auto) 77.2, Lymph % (Auto) 15.8, Lewis % (Auto) 6.0, Eos % (Auto) 0.6, Baso % (Auto) 0.4, Neut # (Auto) 11.2 H, Lymph # (Auto) 2.3, Lewis # (Auto) 0.9, Eos # (Auto) 0.1, Baso # (Auto) 0.1, ESR 58 H 11/29/20 02:30: Total Bilirubin 1.1, Direct Bilirubin 0.3, Conjugated Bilirubin 0.0, Indirect Bilirubin 0.8, Unconjugated Bilirubin 0.8, AST 23, ALT 22, Alkaline Phosphatase 97, Total Protein 8.6 H, Albumin 4.7, Lipase 49 11/29/20 02:30: SARS-CoV-2 IgG Ab (Rapid) Negative, SARS-CoV-2 IgM Ab (Rapid) Negative 11/29/20 02:30: Procalcitonin 0.061 11/29/20 03:33: Urine Color Yellow, Urine Appearance Clear, Urine pH 5.5, Ur Specific Glidden 1.015, Urine Protein Negative, Urine Glucose (UA) Negative, Urine Ketones Negative, Urine Blood Negative, Urine Nitrate Negative, Urine Bilirubin Negative, Urine Urobilinogen 0.2, Ur Leukocyte Esterase Negative, Urine WBC Occasional, Amorphous Sediment Trace Result diagrams: 11/29/20 02:30 11/29/20 02:30 Orders (Tests/Meds): ED MEDICATIONS Generic Name Dose Route Start Last Admin Trade Name Freq PRN Reason Stop Dose Admin Sodium Chloride 1,000 mls @ 999 mls/hr 11/29/20 02:45 11/29/20 02:39 Sod Chlor 0.9% 1000ml Bag IV 11/29/20 03:45 999 mls/hr .Q1H1M ELEUTERIO Administration Sodium Chloride 8 ml 11/29/20 02:34 Sodium Chloride 0.9% 10ml Vial IV 12/29/20 02:33 NEEDED PRN dilute pepcid Discontinued Medications Generic Name Dose Route Start Last Admin Trade Name Freq PRN Reason Stop Dose Admin Famotidine 20 mg 11/29/20 02:34 11/29/20 02:39 Famotidine 20mg/2ml Vial IV 11/29/20 02:35 20 mg ONCE ONE Administration Iopamidol 75 ml 11/29/20 03:41 11/29/20 03:42 Iopamidol-370 (76%);100ml Bottle IV 11/29/20 03:42 75 ml ONCE ONE Administration Ketorolac Tromethamine 30 mg 11/29/20 03:36 11/29/20 03:41 Ketorolac 30mg/Ml Vial IV 11/29/20 03:37 30 mg ONCE ONE Administration Methylprednisolone Sodium Succinate 125 mg 11/29/20 03:36 11/29/20 03:41
[2020-11-29 04:12] VITALS: BP 160/93; PULSE 82; RESP 16; TEMP 36.7; O2SAT 99
== END 2020-11-29 04:15 | disposition home or self-care (01) ==
PROVIDERS: Emergency Provider Emergency Medicine; PCP Family Medicine
DX: R10.11 Right upper quadrant pain (principal); I10 Essential (primary) hypertension; E78.5 Hyperlipidemia, unspecified; K21.9 Gastro-esophageal reflux disease without esophagitis; Z01.84 Encounter for antibody response examination; Z95.1 Presence of aortocoronary bypass graft; Z79.899 Other long term (current) drug therapy
CPT/HCPCS: 71046; 74177; 80048; 80076; 81001; 82150; 83690; 84145; 84484; 85025; 85651; 86140; 86328; 93005; 96365; 96375; 99283; J2405; Q9967

== ENCOUNTER → 2020-12-08 08:11 | Outpatient (CLI) | payer BC, SELFPAY ==
--- NOTE | 2020-12-08 08:15 | US_ITS ---
PROCEDURE: US ABDOMEN LIMITED Referring Doctor: Philipp Schwarz Patient Age:59Y CLINICAL INDICATION: RUQ PAIN Recent CABG COMPARISON: CT CT ABDOMEN PELVIS W CON from 11/29/2020 FINDINGS: The difficult exam due to patient's body habitus GALLBLADDER: Multiple small GALLSTONES towards the neck of the gallbladder. Also thick sludge and diffuse echogenic material throughout the gallbladder. Gallbladder distended measuring at least 11 cm length,. Mild diffuse gallbladder wall thickening,. . No pericholecystic fluid,...-. Overall findings suggestive of cholecystitis which most likely mainly chronic in nature. . Common duct satisfactory a generous but not significant dilated. It measures up to 7.3 mm of just below the hilum of the liver LIVER: No focal liver lesions demonstrated. Homogeneous echogenicity. No intrahepatic biliary ductal dilatation evident. There is appropriate direction of blood flow within a non dilated portal vein PANCREAS: Not well seen but unremarkable. No obvious mass or abnormal fluid collection. No ductal dilatation RIGHT KIDNEY: No hydronephrosis nor mass. Kidneys normal size and and echogenicity.. Nearly 11 cm length right kidney with overall cortex adequate. IMPRESSION: Distended gallbladder with thick sludge and multiple small gallstones . Mild diffuse gallbladder wall thickening; but no pericholecystic fluid.. Common duct generous-but is normal To Upper Normal caliber, with no intrahepatic biliary ductal dilatation.. Liver, right kidney unremarkable. Pancreas not well visualized but unremarkable Dictated by: Brando Huddleston MD 12/08/2020 11:55 Brando Huddleston MD in [place] 12/08/2020 11:55
--- NOTE | 2020-12-08 08:44 | CA_ITS ---
APPROVED REPORT EXAM: Comprehensive 2D, Doppler, and color-flow Echocardiogram Chief Environmental Commitment Officer: Sobeida Atkins RCS, RVS Ht: 5 ft 9 in Wt: 224lbs BSA: 2.17 BP: 115/64 mmHg Indications: cad, s/p cabg-10/2020,dd, phtn,catalina 2D Dimensions IVSd 1.07 cm M: 0.6-1.2 LVEF (Visual) 35.10 % PWd 0.78 cm M: 0.6 - 1.2 LVDd 4.00 cm M: 4.2 - 5.9 LVDs 3.34 cm M: 2.5 - 4.0 Aortic Root 3.28 cm M: 3.1 - 3.7 Left Atrium 2.86 cm M: 3.0 - 4.0 LVOT 1.68 cm (M/F) 1.5-2.5 M-Mode Dimensions LA Diam 3.26 cm (1.9-4.0) LVDd 4.43 cm (3.5-5.7) Ao Diam 3.33 cm (2.0-3.7) LVDs 3.00 cm (3.5-5.7) EF (Teich) 55.00% EPSs 0.22 cm FS 20.30% EDV (Teich) 89.10 mL ESV (Teich) 60.00 mL LV Diastology E Decel Time 230.00 (160-240 msec) E/A Ratio 0.7 MED E' 5.60 (< 7 cm/sec) MED A' 7.50 cm/s E'/MED E' Ratio 10.52 (>14) LAT E' 7.50 (<10 cm/sec) LAT A' 10.00 cm/s E/LAT E' Ratio 7.85 (>14) Aortic Valve AO Peak GR. 4.60 mmHg Mitral Valve MV E Max Juan. 59.00 (40-130 cm/s) MV A Velocity 80.00 (40-130 cm/s) E/A Ratio 0.74 MV Decel. Time 230.00 (160-240 ms) MV PHT 67.00 ms Pulmonary Valve PV Peak Velocity 80.00 (50-150 cm/s) VT End VMAX 205.00 cm/s Tricuspid Valve TR P. Velocity 231.00 cm/s RAP Estimate 10.00 mmHg RVSP 31.30 mmHg Left Ventricle Left atrium is mildly enlarged, left ventricle is normal size, mild concentric left ventricular hypertrophy, visually estimated ejection fraction 55% with no regional wall motion abnormality, endocardial surfaces are poorly visualized, there is abnormal septal motion, grade 1 diastolic dysfunction seen without tissue Doppler evidence of raise left atrial pressure. Right Ventricle Right atrium and right ventricle are mildly enlarged with normal contractility. Aortic Valve Aortic valve is minimally thickened and fibrosed, there is no aortic stenosis or aortic insufficiency. Mitral Valve Mitral valve is grossly normal, there is mild mitral regurgitation. Tricuspid Valve Tricuspid valve is grossly normal, there is mild tricuspid regurgitation. Tricuspid regurgitation jet velocity is inadequate for calculation of the right ventricular systolic pressure. Pulmonic Valve Pulmonic valve is minimally thickened, there is mild pulmonic insufficiency. Great Vessels Aortic root is normal size. Pericardium No significant pericardial effusion noted. Conclusion 1. Mild biatrial enlargement, normal left ventricular size, mild concentric left ventricular hypertrophy, visually estimated ejection fraction 55%, there is abnormal septal motion, grade 1 diastolic dysfunction seen without tissue Doppler evidence of raise left atrial pressure. 2. Mildly enlarged right ventricle with normal contractility. 3. Mild mitral and tricuspid regurgitation. 4. No significant pericardial effusion noted. Electronically signed by : Elmer Galarza, 12/08/2020 18:02:15
[2020-12-08 10:28] LABS: Basophils # 0.1 K/mm3 (0-0.2); Basophils % 0.9 % (0.1-2.0); Eosinophils # 0.1 K/mm3 (0.0-0.4); Lymphocytes # 1.7 K/mm3 (0.7-4.5); Lymphocytes % 19.5 % (10-50); Mean Corpuscular HGB Conc 31.8 g/dL (31.8-35.4); Mean Corpuscular Hemoglobin 29.2 pg (27.0-31.2); Mean Platelet Volume 7.1 fl (7.4-10.4); Monocytes # 0.6 K/mm3 (0.1-1.0); Monocytes % 6.3 % (1.7-9.3); Neutrophils # 6.4 K/mm3 (1.8-7.8); Neutrophils % 72.2 % (37.0-80.0); Platelet Count 374 K/mm3 (142-424); Red Blood Count 4.46 M/mm3 (4.60-6.20); Red Cell Distribution Width 13.3 % (11.5-17.5); White Blood Count 8.8 K/mm3 (4.8-10.8)
[2020-12-08 10:30] LABS: Alanine Aminotransferase 29 U/L (12-78); Albumin Level 4.5 g/dl (3.5-5.0); Alkaline Phosphatase 83 U/L (38-126); Anion Gap 15.5 mEq/L (5-15); Aspartate Amino Transferase 30 U/L (17-59); Bilirubin,Direct 0.1 mg/dl (0.0-0.4); Bilirubin,Indirect 1.1 mg/dL (0.0-0.9); Bilirubin,Total 1.2 mg/dl (0.2-1.3); Bilirubin,Unconjugated 1.1 mg/dL (0.0-1.1); Blood Urea Nitrogen 14 mg/dl (9-20); Carbon Dioxide 29 mmol/L (22.0-30.0); Chloride 101 mmol/L (98-107); Cholesterol 131 mg/dl (140-200); Estimated Glomerular Filt Rate 99 ml/min (>60); GFR (African American) 120 ML/MIN (>60); Glucose 103 mg/dl (74-100); HDL Cholesterol 22 mg/dl (40-60); Potassium 4.5 mmoL/L (3.5-5.1); Sodium 141 mmol/L (136-145); Total Protein,Serum 7.7 g/dl (6.3-8.2); Triglycerides 175 mg/dl (30-150); VLDL Cholesterol 35 mg/dL (0-40)
[2020-12-08 11:02] LABS: Thyroid Stimulating Hormone 1.97 uIU/mL (0.465-4.68)
== END ==
PROVIDERS: Internal Medicine Cardiovascular Disease; PCP Family Medicine; Visit Provider Family Medicine
DX: R10.11 Right upper quadrant pain (principal); I10 Essential (primary) hypertension; E78.5 Hyperlipidemia, unspecified; G47.33 Obstructive sleep apnea (adult) (pediatric); Z95.1 Presence of aortocoronary bypass graft
CPT/HCPCS: 36415; 76705; 80048; 80061; 80076; 84439; 84443; 85025; 93306

== ENCOUNTER → 2020-12-08 09:28 | Outpatient (CLI) | payer BC, SELFPAY | PROVIDERS: Visit Provider Internal Medicine Cardiovascular Disease | DX: I25.10 Atherosclerotic heart disease of native coronary artery without angina pectoris (principal) | CPT/HCPCS: 36415; 80048; 80061; 80076; 84439; 84443; 85025 ==

== ENCOUNTER → 2021-01-17 08:35 | Outpatient (CLI) | payer BC, SELFPAY ==
[2021-01-17 09:07] LABS: Basophils % 0.8 % (0.1-2.0); Eosinophils # 0.1 K/mm3 (0.0-0.4); Eosinophils % 0.9 % (0.1-12.0); Hematocrit 39.7 % (42.0-52.0); Hemoglobin 13.3 g/dL (14.1-18.0); Lymphocytes % 36.5 % (10-50); Mean Corpuscular HGB Conc 33.6 g/dL (31.8-35.4); Mean Corpuscular Hemoglobin 29.9 pg (27.0-31.2); Mean Platelet Volume 8.3 fl (7.4-10.4); Monocytes # 0.4 K/mm3 (0.1-1.0); Monocytes % 6.3 % (1.7-9.3); Neutrophils # 3.1 K/mm3 (1.8-7.8); Neutrophils % 55.4 % (37.0-80.0); Platelet Count 206 K/mm3 (142-424); Red Blood Count 4.46 M/mm3 (4.60-6.20); Red Cell Distribution Width 14.7 % (11.5-17.5); White Blood Count 5.5 K/mm3 (4.8-10.8)
[2021-01-17 09:53] LABS: Chloride 105 mmol/L (98-107); Potassium 4.3 mmoL/L (3.5-5.1); Sodium 142 mmol/L (136-145)
[2021-01-17 09:55] LABS: Alanine Aminotransferase 30 U/L (12-78); Aspartate Amino Transferase 31 U/L (17-59); Blood Urea Nitrogen 11 mg/dl (9-20); Estimated Glomerular Filt Rate 99 ml/min (>60); GFR (African American) 120 ML/MIN (>60)
[2021-01-17 09:56] LABS: Albumin Level 4.4 g/dl (3.5-5.0); Albumin/Globulin Ratio 1.7 (1.1-1.8); Alkaline Phosphatase 78 U/L (38-126); Anion Gap 13.3 mEq/L (5-15); Calcium 9.4 mg/dl (8.4-10.2); Carbon Dioxide 28 mmol/L (22.0-30.0); Globulin 2.6 g/dL (1.3-3.2); Glucose 118 mg/dl (74-100)
[2021-01-17 10:33] LABS: Coronavirus 19 IgG Antibody Negative (Negative); Coronavirus 19 IgM Antibody Negative (Negative)
== END ==
PROVIDERS: Visit Provider Surgery
DX: Z01.818 Encounter for other preprocedural examination (principal); Z11.52 Encounter for screening for COVID-19; K80.20 Calculus of gallbladder without cholecystitis without obstruction
CPT/HCPCS: 36415; 80053; 85025; 86328

== ENCOUNTER 2021-01-18 09:46 | Day surgery (SDC) | payer BC, SELFPAY ==
[2021-01-18] VITALS (9 sets, daily range): BP systolic 94–152; BP diastolic 59–95; PULSE 71–80; RESP 15–18; TEMP 36.1–36.6; O2SAT 94–100; BMI 32.8
--- NOTE | 2021-01-18 10:58 | P.PN_ITS ---
[facility] Anesthesia Checklist - Patient Identification Patient Identification: Arm Band - Structural Data Admitted From: Home Planned Operative Procedure/s: laparoscopic cholecystectomy Consent for Planned Operative Procedure(s) Verified: Yes Verified Documents: Surgical Consent, History and Physical - NPO Status Verified Time NPO: 00:00 - Additional verifications Anesthesia Reactions: No Hx Blood Transfusions: No Blood Transfusion Reaction: No - Airway Assessment C-Spine Mobility Assessed: Yes (mp2) TMJ Mobility Assessed: Yes Dentition: Good Dentition (upper dentures removed) - Neurological Assessment Level of Consciousness: Awake, Alert - Anesthesia Plan Anesthesia Risk discussed: Yes Anesthesia Plan: Verified ASA Class: III Anesthesia Type: General [facility] History I have reviewed the patient's past medical history: Yes Medical History: Reports:: Coronary Artery Disease, Gastroesophageal Reflux Disease(GERD), Hiatal Hernia, Hyperlipidemia, Hypertension Denies:: Cancer, Diabetes Mellitus Type 1, Diabetes Mellitus Type 2, Internal Pacemaker, MRSA, Seizures *Have you ever received a pneumonia vaccine?: No *Have you received a flu vaccine this season?: No Other Medical History: Reports: Arthritis. Denies: Blood Transfusion Reaction Anesthesia experience/problems:: nac Other Surgeries: Yes: CABG, Cardiac Catheterization, Cardiac Surgery, Colonoscopy, Coronary Stent. No: Pacemaker Amputation: No - *Social History Last grade of school completed: 7th or 8th Smoking Status: Former smoker Tobacco Type: cigarettes Smoking End Date: 11/2017 Alcohol Intake: never Alcohol Intake Frequency:: a few times a month Substance Use Type: denies use *Occupational Status:: unemployed Housing: house Household Members: spouse, family *Travel in the last 8 weeks: None Family Hx:: Coronary Artery Disease, Heart Attack
--- NOTE | 2021-01-18 12:41 | HMH.OPNOTE ---
Date of procedure: 01/18/21 Pre-op Diagnosis:: Symptomatic gallstones Post-op Diagnosis:: Same Procedure performed:: Laparoscopic cholecystectomy Surgeon:: Charles Cherry MD TRANSITION SPECIALIST:: Other Anesthesia: GETA Estimated blood loss (mL): 50 Clinical Note:: Patient Is a 60-year-old male who underwent CABG on 10/22/2020. He lives near [facility]. He has a prior history of multiple stents placed (7) by Dr. Win. He is currently on Plavix. He had presented to the emergency department on 11/29/2019 with sharp shooting pains in his abdomen originating in the right side. This was quite severe. CT scan in the emergency department revealed distended gallbladder with thickened wall. He underwent outpatient gallbladder ultrasound which reveal the gallbladder with thick sludge and numerous gallstones and gallbladder wall thickening. Currently his symptoms have been somewhat controlled with a severely limited diet although he does have ongoing discomfort in the right upper quadrant. He recently had seen Dr. Galarza. He was deemed a low and acceptable risk to proceed with gallbladder surgery. He is to discontinue his Plavix and aspirin 5 days prior. Plan was made to proceed with cholecystectomy. Operative findings:: He had a significantly inflamed thickened gallbladder with evidence of acute on chronic cholecystitis. Operative note:: Patient was taken to the operating room. He was positioned in a supine position. General anesthesia was induced via endotracheal tube. Abdomen was prepped and draped in the standard surgical fashion. Subumbilical skin incision was made. While performing abdominal wall lift Veress needle was inserted. CO2 pneumoperitoneum was achieved to 15 mmHg. 11 mm optical trocar was inserted at the umbilicus. He was positioned in reverse Trendelenburg left side down. A couple 5 mm trochars were inserted in the right upper abdomen. 10 mm trocar was inserted in the epigastrium. Gallbladder was grasped retracted anteriorly and superiorly over the dome of the liver. There were some omental adhesions to the gallbladder and these were taken down using blunt dissection. Gallbladder was found to be significantly distended and thickened. Infundibulum/Bond's pouch of the gallbladder was retracted anterior laterally. Blunt dissection was carried out the neck of the gallbladder. There was evidence of acute on chronic inflammation. Ultimately the cystic duct was able to be identified, isolated. Cystic duct was multiply clipped and sharply divided. Cystic artery was coagulated with FORD ultrasonic robotic aydin and divided. Gallbladder was dissected free from the liver in a retrograde fashion using FORD ultrasonic harmonic aydin. Gallbladder was placed within an Endo Catch retrieval device. It was removed via the umbilical trocar site which required some extension of the fascial incision and skin incision for delivery due to the largely distended gallbladder. Gallbladder fossa was inspected for hemostasis. Some spot use of laparoscopic electrocautery was used on the gallbladder fossa for hemostasis. Irrigation was performed. Trochars were then removed as CO2 pneumoperitoneum was evacuated. Fascia at the umbilicus was closed with multiple interrupted 0 Ethibond sutures. At this time completion laparoscopy was performed to inspect the incision at the umbilicus for hemostasis as it was somewhat oozing. There appeared to be good hemostasis. CO2 pneumoperitoneum was reevacuated. Local anesthetic was infiltrated in all incisions. Skin incisions were closed with 4-0 Monocryl subcuticular fashion. Steri-Strips and dressings were applied. Condition: stable Disposition: PACU Specimens:: Gallbladder and contents Complications:: None immediately apparent
--- NOTE | 2021-01-18 12:51 | HMH.ANESI ---
[facility] Anesthesia Record Part I Intake, IV Amount: 800 Estimated blood loss (mL): 50 Urine output (mL): 0 Blood Pressure: 94/65 SaO2: 96 Pulse Rate: 78 Respiratory Rate: 18 Temperature: 97.1 F Patient is:: Awake Stable to PACU at:: 12:47
[2021-01-19 10:23] VITALS: BP 132/78; PULSE 75; TEMP 36.6
--- NOTE | 2021-01-19 10:23 | HMH.ANESII ---
[facility] Anesthesia Record Part II Discharge Time: 13:12 Destination: Surgical Day Care (OP Surgery) PACU nurse assessment reviewed?: Yes Patient Condition:: Good Anesthesia Complications:: None Swallowing reflex intact?: Yes Cyanosis?: No Blood Pressure: 132/78 Pulse Rate: 75 Temperature: 97.8 F Mental Status: Alert & Oriented Pain level:: 0 Nausea and/or vomitting:: None Intake, IV Amount: 0
== END 2021-01-18 13:43 | disposition home or self-care (01) ==
PROVIDERS: PCP Family Medicine; Visit Provider Surgery
PROC: 0FT44ZZ Resection of Gallbladder, Percutaneous Endoscopic Approach (ICD-10-PCS; CPT 47562; principal; 2021-01-18 11:15)
DX: K80.12 Calculus of gallbladder with acute and chronic cholecystitis without obstruction; K66.0 Peritoneal adhesions (postprocedural) (postinfection); Z79.01 Long term (current) use of anticoagulants; Z95.1 Presence of aortocoronary bypass graft; E78.5 Hyperlipidemia, unspecified; I10 Essential (primary) hypertension; I25.10 Atherosclerotic heart disease of native coronary artery without angina pectoris; K21.9 Gastro-esophageal reflux disease without esophagitis; M19.90 Unspecified osteoarthritis, unspecified site; Z87.891 Personal history of nicotine dependence; Z82.49 Family history of ischemic heart disease and other diseases of the circulatory system; Z79.899 Other long term (current) drug therapy
CPT/HCPCS: 47562; 96374

== ENCOUNTER → 2021-04-28 14:12 | Outpatient (CLI) | payer BC, SELFPAY ==
--- NOTE | 2021-04-28 14:15 | US_ITS ---
PROCEDURE: US BREAST LT COMPLETE CLINICAL INDICATION: LT GYNECOMASTIA PAIN COMPARISON: No exams were available for comparison FINDINGS: Left breast ultrasound was performed. In the subareolar left breast there is a flame shaped hypoechoic mass which measures about 1.5 cm x 1 cm. This most likely represents gynecomastia. However, I would recommend bilateral digital diagnostic mammograms for more definitive confirmation. There is no abnormal vascularity. No other abnormality noted. Ultrasound of the right subareolar region for comparison show no focal abnormality. IMPRESSION: Flame shaped subareolar hypoechoic mass left breast with ultrasound features likely representing gynecomastia. Bilateral digital diagnostic mammograms for more definitive confirmation are recommended. BI-RADS 0: Further imaging evaluation recommended. Recommend bilateral digital diagnostic mammograms. Dictated by: Gabe Mendoza MD 04/28/2021 17:03 Gabe Mendoza MD in [place] 04/28/2021 17:03
== END ==
PROVIDERS: PCP Family Medicine; Visit Provider Family Medicine
DX: N62 Hypertrophy of breast (principal)
CPT/HCPCS: 76641

== ENCOUNTER → 2021-05-03 15:13 | Outpatient (CLI) | payer BC, SELFPAY ==
--- NOTE | 2021-05-03 15:17 | XR_ITS ---
PROCEDURE: XR LUMBAR SPINE MIN 4V CLINICAL INDICATION: LOW BACK PAIN COMPARISON: No exams were available for comparison FINDINGS: Normal alignment. No acute fracture or dislocation. There is degenerative disc disease at L4-5 with mild retrolisthesis of L4 4 mm. Facet arthritic changes are present at L5-S1. There is generalized vascular calcification. IMPRESSION: Degenerative changes as described above Dictated by: Doc Carrasquillo MD 05/03/2021 15:58 Doc Carrasquillo MD in [place] 05/03/2021 15:58
== END ==
PROVIDERS: PCP Family Medicine; Visit Provider Family Medicine
DX: M54.41 Lumbago with sciatica, right side (principal)
CPT/HCPCS: 72110

== ENCOUNTER → 2021-05-12 14:29 | Outpatient (CLI) | payer BC, SELFPAY ==
--- NOTE | 2021-05-12 14:30 | MM_ITS ---
PROCEDURE: MM DIG MAMM BI DX W/CAD Digital Breast Tomosynthesis Included CLINICAL INDICATION: SUBAREOLAR GYNECOMASTIA IN MALE, ABN ULTRASOUND COMPARISON: US US BREAST LT COMPLETE from 04/28/2021 TECHNIQUE: Standard CC and MLO images and 3D Tomosynthesis was obtained. R2 CAD reviewed. FINDINGS: Asymmetric density is present in the retroareolar region on the left. This has a typical flame shaped appearance of gynecomastia without discrete suspicious mass. Mild gynecomastia noted on right. IMPRESSION: Bilateral gynecomastia left greater than right BI-RAD Category: 2 Benign Finding FOLLOW-UP: Follow-up as clinically warranted (A letter has been sent to the patient regarding results of the study.) Dictated by: Doc Carrasquillo MD 05/18/2021 14:13 Doc Carrasquillo MD in [place] 05/18/2021 14:13
== END ==
PROVIDERS: PCP Family Medicine; Visit Provider Family Medicine
DX: R93.89 Abnormal findings on diagnostic imaging of other specified body structures (principal); N62 Hypertrophy of breast
CPT/HCPCS: 77062; 77066; G0279

== ENCOUNTER → 2021-07-25 13:43 | Outpatient (CLI) | payer BC, SELFPAY ==
--- NOTE | 2021-07-25 13:46 | XR_ITS ---
PROCEDURE: XR SHOULDER RT MIN 2V CLINICAL INDICATION: STRAIN OF MUSCLES AND TENDONS OF THE ROTATOR CUFF COMPARISON: No exams were available for comparison FINDINGS: No fracture or dislocation. No lytic or blastic change. There is normal mineralization. There are minimal osteoarthritic changes of the glenohumeral joint. No significant subacromial stenosis. Other findings:None. IMPRESSION: Minimal osteoarthritic change glenohumeral joint otherwise negative Dictated by: Doc Carrasquillo MD 07/25/2021 14:09 Doc Carrasquillo MD in [place] 07/25/2021 14:09
== END ==
PROVIDERS: PCP Family Medicine; Visit Provider Family Medicine
DX: S46.011A Strain of muscle(s) and tendon(s) of the rotator cuff of right shoulder, initial encounter (principal)
CPT/HCPCS: 73030

== ENCOUNTER → 2021-08-06 07:53 | Outpatient (CLI) | payer BC, SELFPAY ==
--- NOTE | 2021-08-06 07:57 | MR_ITS ---
PROCEDURE INFORMATION: Exam: MR Right Upper Extremity Joint Without Contrast; Shoulder Exam date and time: 08/06/2021 7:57 AM Age: 60 years old Clinical indication: Right; Patient HX: PT C/O RT shoulder pain with limited range of motion. PT denies recent injury or trauma but does state repeated strains and overuse. TECHNIQUE: Imaging protocol: MR of the Right upper extremity without contrast. Exam focused on the shoulder. COMPARISON: 1. CR XR SHOULDER RT MIN 2V 07/25/2021 1:53 PM 2. CR XR CHEST 2V 11/29/2020 2:50 AM FINDINGS: Bones and cartilage: There is no acute fracture or dislocation. No aggressive bone lesions are present. The undersurface of the acromion is flat, consistent with a type I acromion. Joint spaces: There is mild primary osteoarthritis of the acromioclavicular joint. A normal amount of fluid is present in the glenohumeral joint. Glenoid labrum: Heterogeneous morphology and signal intensity of the inferior glenoid labrum suggests degenerative labral tearing. Bursae: A mild amount of fluid is present in the subacromial-subdeltoid bursa. Supraspinatus tendon: Along the posterior 5 mm of the supraspinatus tendon, there is a an intermediate grade partial thickness tear that is predominantly intrasubstance but extends to the bursal surface (series 5/images 9-10). Mild tendinosis involves adjacent intact fibers of the supraspinatus tendon. Infraspinatus tendon: No tear or significant tendinosis involves the infraspinatus tendon. Subscapularis tendon: Mild tendinosis involves the subscapularis tendon. Teres minor tendon: Unremarkable. No evidence of tear. Tendon of biceps brachii: The long head of the biceps tendon is normally situated within the bicipital groove. Glenohumeral ligaments: The inferior glenohumeral ligament is partially obscured by soft tissue thickening in the axillary recess. Muscles: The rotator cuff musculature demonstrates no significant edema or atrophy. Soft tissues: Thickening of the joint capsule in the axillary recess with mild edema suggests the possibility of adhesive capsulitis. Other findings: Although outside the field of view of the shoulder MRI, there appears to be a 2.4 cm rounded mass at the medial right lung base on the recent shoulder radiographs. A chest CT is recommended for further evaluation. IMPRESSION: 1. Recommend chest CT to exclude a mass at the medial right lung base. 2. Focal intermediate grade partial-thickness tear involving the posterior 5 mm of the supraspinatus tendon. 3. Findings suggestive of adhesive capsulitis. 4. Tearing of the labrum that is likely degenerative. 5. Mild primary osteoarthritis of the acromioclavicular joint. 6. Mild subacromial-subdeltoid bursitis. COMMENTS: A request for a conference call with the ordering provider or ordering provider's care team was submitted at 5:12 PM EDT on 08/07/2021 to be completed during normal working hours on the subsequent day.
== END ==
PROVIDERS: PCP Family Medicine; Visit Provider Family Medicine
DX: S46.011A Strain of muscle(s) and tendon(s) of the rotator cuff of right shoulder, initial encounter (principal)
CPT/HCPCS: 73221

== ENCOUNTER → 2021-08-16 15:57 | Outpatient (CLI) | payer BC, SELFPAY ==
--- NOTE | 2021-08-16 16:01 | XR_ITS ---
PROCEDURE: XR CHEST 2V CLINICAL HISTORY: ABNORMALITY OF LUNG ON CXR, RT MIDDLE LOBE PULMONARY NODULE COMPARISON: CR CXR1 CHEST-PORTABLE from 06/17/2017 CR XR CHEST 2V from 11/29/2020 CR XR SHOULDER RT MIN 2V from 07/25/2021 FINDINGS: There has been a prior CABG. Normal heart size. Previously noted density in the medial aspect of the right lung base on the shoulder radiograph probably related overlying pulmonary artery. There is some increased density in this region in the infrahilar region on the right. CT may confirm. The left lung is clear. No acute bony abnormalities. IMPRESSION: Increased density noted in the recent shoulder image may represent the pulmonary artery. There is some increased density in this region on the radiograph but less apparent than on the shoulder film and somewhat similar to an older study of 06/17/2017. CT may confirm with certainty. Dictated by: Doc Carrasquillo MD 08/16/2021 16:50 Doc Carrasquillo MD in [place] 08/16/2021 16:50
== END ==
PROVIDERS: PCP Family Medicine; Visit Provider Family Medicine
DX: R91.1 Solitary pulmonary nodule (principal); R91.8 Other nonspecific abnormal finding of lung field
CPT/HCPCS: 71046

== ENCOUNTER → 2021-08-30 13:39 | Outpatient (CLI) | payer BC, SELFPAY ==
--- NOTE | 2021-08-30 13:52 | CT_ITS ---
PROCEDURE: CT CHEST WO/W CON CLINCAL INDICATION: LUNG NODULE COMPARISON: CT CT ABDOMEN PELVIS W CON from 11/29/2020 CR XR SHOULDER RT MIN 2V from 07/25/2021 CR XR CHEST 2V from 08/16/2021 TECHNIQUE: IV Contrast: 75ml Isovue 370 Axial images obtained with sagittal and coronal reformats. All CT scans at the facility use one or more dose reduction, viz: automated exposure control, ma/kV adjustment per patient size (including targeted exams where dose is matched to indication, i.e. head), or iterative reconstruction technique. FINDINGS: HEART AND MEDIASTINAL STRUCTURES: There has been a prior CABG. Coronary artery calcifications and/or stents. No mediastinal or hilar mass or adenopathy. A cluster of calcified nodes is present in the right infrahilar region accounting for the radiographic abnormality. No suspicious hilar mass evident. LUNGS AND PLEURAL SPACES: Cluster of small nodules right middle lobe. Paraseptal emphysematous changes in the right apex. No suspicious pulmonary nodule evident. BONY STRUCTURES: No acute bony abnormalities apparent. UPPER ABDOMEN: 5 mm hypodensity right hepatic dome anteriorly segment 8 suggesting a small cyst ADDITIONAL FINDINGS: No other significant abnormalities. IMPRESSION: No acute finding. Radiographic abnormality in the infrahilar region on the right represents a cluster of small calcified nodes. Cluster of small calcified nodules are present in the right middle lobe. These findings are consistent with old granulomatous disease. No suspicious pulmonary nodule apparent. Dictated by: Doc Carrasquillo MD 09/01/2021 07:03 Doc Carrasquillo MD in [place] 09/01/2021 07:03
[2021-08-30 14:02] LABS: Blood Urea Nitrogen 6 mg/dl (9-20); Estimated Glomerular Filt Rate 115 ml/min (>60); GFR (African American) 140 ML/MIN (>60)
== END ==
PROVIDERS: PCP Family Medicine; Visit Provider Family Medicine
DX: R91.1 Solitary pulmonary nodule (principal)
CPT/HCPCS: 36415; 71270; 82565; 84520; Q9967

== ENCOUNTER 2021-09-05 13:00 | Outpatient (RCR) | payer BC, SELFPAY | END 2021-09-05 13:05 | disposition home or self-care (01) | LOC: OT 13:00 | PROVIDERS: Visit Provider Family Medicine | DX: M75.111 Incomplete rotator cuff tear or rupture of right shoulder, not specified as traumatic (principal) | CPT/HCPCS: 97014; 97110; 97140; 97165; 97530; G0283 ==

== ENCOUNTER 2022-07-22 09:30 | Emergency (ER) | payer BC, SELFPAY ==
[2022-07-22 09:50] VITALS: BP 146/83; PULSE 75; RESP 18; TEMP 36.9; O2SAT 95; BMI 29.9
[2022-07-22 09:56] VITALS: BP 128/81; PULSE 72; RESP 18; TEMP 37.2; O2SAT 96; BMI 35.2
--- NOTE | 2022-07-22 10:14 | EXP.UTC ---
Discharge Plan Disposition Patient Disposition: Home, Self-Care Condition: Good Prescriptions Prescriptions: New Paxlovid (EUA) 300 mg (150 mg x 2)-100 mg tablets,dose pack See Rx Instructions PO .COMPLEX Qty: 30 0RF Rx Instructions: take TWO 150 mg tablets of nirmatrelvir with ONE 100 mg tablet of ritonavir twice daily for 5 days benzonatate [benzonatate] 100 mg capsule 100 mg PO TIDP PRN (Reason: Cough) Qty: 30 0RF ondansetron 4 mg Tablet,Disintegrating 4 mg PO Q8H PRN (Reason: Nausea) Qty: 20 0RF No Action aspirin [Adult Low Dose Aspirin] 81 mg tablet,delayed release (DR/EC) 81 mg PO ONCE coenzyme Q10 [Co Q-10] 10 mg capsule 10 mg PO ONCE metoprolol tartrate 25 mg tablet 25 mg PO BID 90 Days Qty: 180 2RF losartan 50 mg tablet See Rx Instructions .ROUTE .COMPLEX Qty: 90 2RF Dose Instruction: TAKE 1 TABLET BY MOUTH ONCE DAILY Rx Instructions: TAKE 1 TABLET BY MOUTH ONCE DAILY pantoprazole 40 mg tablet,delayed release (DR/EC) See Rx Instructions .ROUTE .COMPLEX Qty: 90 2RF Dose Instruction: TAKE 1 TABLET BY MOUTH ONCE DAILY Rx Instructions: TAKE 1 TABLET BY MOUTH ONCE DAILY clopidogrel 75 mg tablet See Rx Instructions .ROUTE .COMPLEX Qty: 90 2RF Dose Instruction: TAKE ONE TABLET BY MOUTH EVERY DAY Rx Instructions: TAKE ONE TABLET BY MOUTH EVERY DAY atorvastatin 80 mg tablet 80 mg PO DAILY Qty: 90 2RF Referrals Follow up/Referrals: Mary Beth Collins APRN [Primary Care Provider] - See instructions Activity Restrictions/Add. Instructions Additional Instructions/Restrictions: Drink plenty of fluids. Take tylenol or ibuprofen for pain or fever. Take the medications as directed. Follow up with your regular doctor. GO TO THE ER FOR ANY WORSENING SYMPTOMS Clinical Impressions Clinical Impression: COVID-19 Discharge ED Provider: Gabe Avery [facility] [place] HPI General Stated complaint: covid+, headache, cough, weakness Mode of Arrival: Ambulatory Source of Information: Patient Limitations: No Limitations Time Seen by Provider: 07/22/22 10:14 Description of Symptoms (Recalled from Triage Doc. by RN): pt comes in for covid positive home test. pts tested positive at pcp office few days ago. pt symptoms include headache, cough, congestion, nausea, body aches. symptoms began this am. HEENT Symptoms (Recalled from RN notes): No Resp Symptoms (Recalled from RN notes): No Skin Symptoms (Recalled from RN notes): No MS Symptoms (Recalled from RN notes): No Functional Status (Recalled from RN notes): n/a History of Present Illness Provider Complaint: He is here to see about getting paxlovid prescribed to him. He tested positive on a home covid-19 test this am. His tested positive 2 days ago and she is taking paxlovid and it seems to be helping. He denies any history of decreased renal function. 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 He denies any shortness of breath or significant cough yet. Related Data Home Medications Medication Instructions Recorded Confirmed aspirin 81 mg tablet,delayed 81 mg PO ONCE heart health 12/27/17 04/07/22 release (Adult Low Dose Aspirin) coenzyme Q10 10 mg capsule (Co 10 mg PO ONCE Supplement 12/28/17 04/07/22 Q-10) Previous Rx's Medication Instructions Recorded atorvastatin 80 mg tablet 80 mg PO DAILY Cholesterol #90 tabs 01/03/22 clopidogrel 75 mg tablet See Rx Instructions .Route 01/03/22 .COMPLEX #90 tabs losartan 50 mg tablet See Rx Instructions .Route 01/03/22 .COMPLEX #90 tabs metoprolol tartrate 25 mg tablet 25 mg PO BID High blood pressure 3 01/03/22 months #180 tabs pantoprazole 40 mg tablet,delayed See Rx Instructions .Route 01/03/22 release .COMPLEX #90 tabs benzonatate 100 mg capsule 100 mg PO TIDP PRN Cough #30 caps 07/22/22 nirmatrelvir 300 mg (150 mg See Rx Instructions PO .COMPLEX 07/22/22 x2)-ritonavir 100 mg tablet,dose #30 tabs
[2022-07-22 10:30] VITALS: BP 128/81; PULSE 72; RESP 18; TEMP 37.2
== END 2022-07-22 10:34 | disposition home or self-care (01) ==
LOC: ER 09:39 → UTC 09:45
PROVIDERS: Emergency Provider Nurse Practitioner Family; PCP Nurse Practitioner Family
DX: U07.1 COVID-19 (principal); I25.2 Old myocardial infarction; Z95.1 Presence of aortocoronary bypass graft; Z87.891 Personal history of nicotine dependence
CPT/HCPCS: 99212; G0463

== ENCOUNTER → 2022-11-15 08:41 | Outpatient (POV) | payer BC, SELFPAY ==
[2022-11-15 09:02] VITALS: BP 137/85; PULSE 78; RESP 18; O2SAT 97; BMI 35.1
--- NOTE | 2022-11-15 09:36 | EXP.PAIN.OV ---
HPI Data of Consult Patient: new to practice Consult date: 11/15/22 Requesting Physician: Leta Farnsworth APRN Primary Care Provider: Grabiel Mackey MD Consult Narrative Reason for consult: Low back pain, left hip pain, right shoulder pain History of present illness: Mr. Hyman is a 61 year old male who presents today as a new patient. Today he rates his pain a 5 out of 10. Patient states his pain is all and he has low back with radiating symptoms into his left hip as well as his right shoulder. Patient states this has been going on for approximately a year and a half with worsening over time. 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 Patient does state that he has been to physical therapy for his right shoulder that did provide significant improvement. Patient did have imaging of his right shoulder in 2020 as well as his low back and states that he does not know of a tear in his shoulder along with degenerative disc disease of his lumbar spine and a slipped disc around the L4 area. Patient does use [id number] Tylenol with some relief of his symptoms. He has tried uiyf-tey-dkfnqzv creams such as icy hot and CBD and states this does provide relief however short-term. Patient has also tried heat and ice and states he will get approximately 30 minutes worth of relief. Patient has not been to any chiropractor and has not tried any muscle relaxer or scheduled medications in the past. Patient does describe this pain as a pressure, stiffness, ringing pain sensation that is worse with increased activity or bending, lifting, twisting motion. Patient states this does affect his ability to perform activities of daily living and states he has decreased range of motion due to the pain. Patient states this is a constant pain that affects his ability to sleep. Patient states he is a side sleeper and often tosses and turns due to the pain. Patient is not on any scheduled medications. His Maik is [phone]. Its been reviewed and appropriate. CC: Leta Farnsworth APRN [facility] Disclaimer: The information contained in this section may have been updated after the patient was seen, as this information can be updated by other users. Medical History Chest pain Diastolic dysfunction Pulmonary HTN Social History (Updated 11/15/22 @ 09:05 by Naomy Hobson RN) Smoking Status: Former smoker alcohol intake: former substance use type: denies use current occupational status: retired Travel in the last 8 weeks: None household members: spouse and family housing: house current occupational exposures/hazards: No caffeine: Yes Review of Systems Review of Systems Review of systems:: pertinent systems reviewed and negative unless documented below Review of systems (narrative): Review of Systems: General: No recent weight changes, no fever, no sleep disturbances Respiratory: No cough, no shortness of air, no recurring pulmonary infections Cardiovascular/peripheral vascular: No chest pain, no palpitations, no edema, no shortness of breath Gastrointestinal: No new onset incontinence, normal bowel movements reported Genitourinary: No new onset incontinence Musculoskeletal: Right shoulder pain, low back pain Psychiatric: [Normal mood/affect] Neurological: [Denies weakness in extremities], [denies balance issues] Meds Home Medications and Allergies Home Medications Medication Instructions Recorded Confirmed Type aspirin 81 mg tablet,delayed 81 mg PO ONCE heart health 12/27/17 11/15/22 History release (Adult Low Dose Aspirin) coenzyme Q10 10 mg capsule (Co 10 mg PO ONCE Supplement 12/28/17 11/15/22 History Q-10) ondansetron 4
== END | disposition home or self-care (01) ==
PROVIDERS: PCP Family Medicine; Visit Provider Nurse Practitioner Family
DX: M51.16 Intervertebral disc disorders with radiculopathy, lumbar region (principal); M25.511 Pain in right shoulder; M25.552 Pain in left hip; S73.199A Other sprain of unspecified hip, initial encounter; G89.29 Other chronic pain
CPT/HCPCS: 99202; G0463

== ENCOUNTER → 2022-11-24 11:14 | Outpatient (CLI) | payer BC, SELFPAY ==
--- NOTE | 2022-11-24 11:22 | XR_ITS ---
FINAL REPORT CLINICAL HISTORY: shoulder pain COMPARISON: 07/25/2021 FINDINGS: RIGHT SHOULDER Three views demonstrate no acute fracture or dislocation. There are degenerative changes of the glenohumeral and acromioclavicular joints, visually stable from prior exam. The soft tissues are unremarkable. IMPRESSION: Stable degenerative changes without acute bony abnormality. Reviewed, Interpreted and Dictated by Charles Barth III, MD Transcribed by Carolin Schneider Authenticated and [facility]
== END ==
LOC: RAD 11:17
PROVIDERS: PCP Family Medicine; Visit Provider Orthopaedic Surgery
DX: M25.511 Pain in right shoulder (principal)
CPT/HCPCS: 73030

== ENCOUNTER 2022-11-28 07:30 | Day surgery (SDC) | payer BC, SELFPAY ==
[2022-11-28 08:08] VITALS: BP 133/78; PULSE 58; RESP 18; TEMP 36.1; O2SAT 95; BMI 34.7
[2022-11-28 08:31] VITALS: RESP 18
[2022-11-28 08:32] VITALS: BP 118/78; PULSE 63; RESP 18; O2SAT 98
[2022-11-28 08:37] VITALS: BP 125/71; PULSE 56; RESP 18; O2SAT 95
--- NOTE | 2022-11-28 08:52 | EXP.PAIN.PRO ---
Procedure Date: 11/28/22 Time: 08:20 Anesthesiologist:: Venancio Gonzalez CRNA Complications:: None Pre-procedure Diagnosis:: Degenerative disc disease lumbar spine multilevels. Lumbar radiculopathy. Post-procedure Diagnosis:: Same. Indications for Procedure:: Patient is a pleasant 61-year-old male that comes our clinic today for lumbar epidural steroid injection at the L4-5 level. Patient rates his low back pain 6/10. Also complains of bilateral hip and leg radicular symptoms. Left greater than right. Procedure Details:: Procedure: Lumbar epidural steroid injection under fluoroscopy Informed consent was obtained and the risks and benefits of the procedure were explained to the patient. The patient was taken to the procedure room and noninvasive monitors placed, including noninvasive blood pressure cuff and pulse oximeter. The back was viewed using C-arm Fluoroscopy and prepped using Chloraprep as a cleansing solution and the L4-L5 interspace was palpated. Skin and subcutaneous tissues were anesthetized using lidocaine 1.5% and a 25-gauge needle. After this, an 18-gauge Touhy epidural needle was placed into the L4-L5 interspace and advanced using fluoroscopic guidance and loss of resistance to air until the epidural space was encountered. After confirmation of needle placement in the epidural space, with dye, a solution containing normal saline, 3 mL and Depo-Medrol 80 mg were incrementally injected into the lumbar epidural space. The patient tolerated the procedure well with no complications. The patient was observed in the Pain Clinic and then discharged home neurologically intact. Plan and Disposition:: Patient was discharged without incident
== END 2022-11-28 08:37 | disposition home or self-care (01) ==
LOC: SC.PAINP 07:31
PROVIDERS: PCP Family Medicine; Visit Provider Nurse Anesthetist, Certified Registered
DX: M51.16 Intervertebral disc disorders with radiculopathy, lumbar region (principal)
CPT/HCPCS: 62323; J1040

== ENCOUNTER → 2022-12-11 08:20 | Outpatient (POV) | payer BC, SELFPAY ==
[2022-12-11 09:17] VITALS: BP 111/72; PULSE 64; RESP 18; O2SAT 98; BMI 34.5
--- NOTE | 2022-12-11 10:00 | EXP.PAIN.SOA ---
[facility] Pain Management SOAP Note Subjective:: Patient is a pleasant 61-year-old male who presents today for follow-up of lumbar epidural steroid injection at L4-L5 on 11/28/2021. We are currently treating the patient for degenerative disc disease of lumbar spine multilevels with lumbar radiculopathy symptoms, low back pain, left hip pain, right shoulder pain. Patient states he has had at least 80% improvement following this injection and feels like it still continuing to provide relief. Patient does state that he still has some left hip discomfort that he notices more frequently at bedtime. Patient states that he is a side sleeper and that frequently goes in between his right side which causes issues with his right shoulder and then flips back to his left side which bothers his left hip. Patient does describe this as a throbbing, aching sensation that is worse with increased activity or positioning. Patient states overall this pain is manageable however it is more bothersome trying to sleep. Patient denies any recent imaging of this joint. Patient is not on any scheduled medications. Patient does use awqg-cgd-kboojnh Tylenol and topicals with some relief. His Maik is [phone]. Its been reviewed and appropriate. Review of Systems: General: No recent weight changes, no fever, no sleep disturbances Respiratory: No cough, no shortness of air, no recurring pulmonary infections Cardiovascular/peripheral vascular: No chest pain, no palpitations, no edema, no shortness of breath Gastrointestinal: No new onset incontinence, normal bowel movements reported Genitourinary: No new onset incontinence Musculoskeletal: Left hip pain Psychiatric: [Normal mood/affect] Neurological: [Denies weakness in extremities], [denies balance issues] Objective:: Physical Exam: General: Alert and oriented x3, no acute distress, pleasant and cooperative Lungs: Respirations even and unlabored, symmetrical chest expansion Eyes: PERRL Musculoskeletal: Flexion and extension of lumbar [spine] somewhat guarded secondary to pain, [antalgic gait noted] Neurological: Speech clear, no gross sensory deficit Assessment:: Degenerative disc disease of lumbar spine multilevels with lumbar radiculopathy symptoms, low back pain, left hip pain, right shoulder pain Plan:: Patient has had significant improvement following his lumbar epidural steroid injection and does not require additional injective therapy at this time. I will order the patient a compounding cream at today's visit. I have discussed with the patient that in the future we might look at doing left hip imaging and that he may benefit from intra-articular hip injections. Patient will return to clinic in 1 month for reevaluation of symptoms and follow-up. Patient has been instructed to contact the clinic with any concerns before the next appointment. Dr. Saavedra has reviewed this note and agrees with this plan of care. This note was dictated using voice recognition software and make contain errors or omissions. [facility] Disclaimer: The information contained in this section may have been updated after the patient was seen, as this information can be updated by other users. Medical History Chest pain Diastolic dysfunction Pulmonary HTN Social History Smoking Status: Former smoker alcohol intake: former substance use type: denies use current occupational status: retired Travel in the last 8 weeks: None household members: spouse and family housing: house current occupational exposures/hazards: No caffeine: Yes
== END ==
PROVIDERS: PCP Family Medicine; Visit Provider Nurse Practitioner Family
DX: M51.16 Intervertebral disc disorders with radiculopathy, lumbar region (principal); M25.552 Pain in left hip; M25.511 Pain in right shoulder
CPT/HCPCS: 99212; G0463

== ENCOUNTER → 2023-01-08 10:16 | Outpatient (POV) | payer BC, SELFPAY ==
[2023-01-08 10:35] VITALS: BP 143/69; PULSE 61; RESP 18; O2SAT 97; BMI 34.5
--- NOTE | 2023-01-08 10:53 | EXP.PAIN.SOA ---
[facility] Pain Management SOAP Note Subjective:: Patient is a pleasant 62-year-old male who presents today for follow-up. We are currently treating the patient for degenerative disc disease of lumbar spine multilevels with lumbar radiculopathy symptoms, low back pain, left hip pain, right shoulder pain. Today he rates his pain a 0 out of 10. Patient denies any new trauma or injury. Patient denies any change to location or type of pain he experiences. Patient previously had a lumbar epidural steroid injection at L4-L5 on 11/28/2022 and he feels like he is still continuing to get additional relief from this injection. Patient states he will still have pain in his left hip and right shoulder that is more prominent at night. Patient is a side sleeper and states that he goes between sides due to the pain at either of these locations. Patient does describe this as a aching, throbbing sensation that is worse with increased activity or positioning. Patient states he has had overall improvement and feels like his pain is much more tolerable now. Patient will use Tylenol 600 mg as needed. Patient does have a history of open heart surgery and cannot tolerate NSAIDs. At our last visit patient was ordered compounding cream however he states his insurance would not cover this and he did not proceed forward with ordering it. Patient is not on any scheduled medications. His Maik is [phone]. Its been reviewed and appropriate. Review of Systems: General: No recent weight changes, no fever, no sleep disturbances Respiratory: No cough, no shortness of air, no recurring pulmonary infections Cardiovascular/peripheral vascular: No chest pain, no palpitations, no edema, no shortness of breath Gastrointestinal: No new onset incontinence, normal bowel movements reported Genitourinary: No new onset incontinence Musculoskeletal: Left hip pain, right shoulder pain Psychiatric: [Normal mood/affect] Neurological: [Denies weakness in extremities], [denies balance issues] Objective:: Physical Exam: General: Alert and oriented x3, no acute distress, pleasant and cooperative Lungs: Respirations even and unlabored, symmetrical chest expansion Eyes: PERRL Musculoskeletal: Flexion and extension of lumbar [spine] somewhat guarded secondary to pain, [antalgic gait noted] Neurological: Speech clear, no gross sensory deficit Assessment:: Degenerative disc disease of lumbar spine multilevels with lumbar radiculopathy symptoms, low back pain, left hip pain, right shoulder pain Plan:: Patient continues to get significant relief following his lumbar epidural steroid injection in November and does not require any additional injective therapy at this time. Patient will return to clinic in 3 months for reevaluation of symptoms and plan of care. Patient has been instructed to contact the clinic with any concerns before the next appointment. Dr. Saavedra has reviewed this note and agrees with this plan of care. This note was dictated using voice recognition software and make contain errors or omissions. [facility] Disclaimer: The information contained in this section may have been updated after the patient was seen, as this information can be updated by other users. Medical History Chest pain Diastolic dysfunction Pulmonary HTN Social History Smoking Status: Former smoker alcohol intake: former substance use type: denies use current occupational status: retired Travel in the last 8 weeks: None household members: spouse and family housing: house current occupational exposures/hazards: No caffeine: Yes
== END ==
PROVIDERS: PCP Family Medicine; Visit Provider Nurse Practitioner Family
DX: M51.16 Intervertebral disc disorders with radiculopathy, lumbar region (principal); M25.552 Pain in left hip; M25.511 Pain in right shoulder
CPT/HCPCS: 99212; G0463

== ENCOUNTER → 2023-04-02 10:05 | Outpatient (POV) | payer BC, SELFPAY ==
--- NOTE | 2023-04-02 10:26 | EXP.PAIN.SOA ---
[facility] Pain Management SOAP Note Subjective:: Patient is a pleasant 62-year-old male who presents today for follow-up. We are currently treating the patient for degenerative disc disease of lumbar spine with lumbar radiculopathy symptoms, low back pain, left hip pain, right shoulder pain. Today he rates his pain a 5 out of 10. Patient denies any new trauma or injury. Patient denies any change location or type of pain he experiences. He does state he continues to experience worsening pain in his right shoulder and describes it as an aching, throbbing sensation that is worse with increased activity. Patient states he cannot raise his arm too high up in the air or even over to the left side due to worsening pain. This does interfere with his ability to perform activities of daily living such as cooking and cleaning. 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 Patient has tried iorj-ljk-nvfubsn medications and does currently use Tylenol 650 mg as needed. Patient does have a cardiology history and cannot tolerate any NSAIDs. Patient has previously had a lumbar epidural steroid injection that did provide significant relief. He is not on any scheduled medications. His Maik is [phone]. Its been reviewed and appropriate. Review of Systems: General: No recent weight changes, no fever, no sleep disturbances Respiratory: No cough, no shortness of air, no recurring pulmonary infections Cardiovascular/peripheral vascular: No chest pain, no palpitations, no edema, no shortness of breath Gastrointestinal: No new onset incontinence, normal bowel movements reported Genitourinary: No new onset incontinence Musculoskeletal: Right shoulder pain Psychiatric: [Normal mood/affect] Neurological: [Denies weakness in extremities], [denies balance issues] Objective:: Physical Exam: General: Alert and oriented x3, no acute distress, pleasant and cooperative Lungs: Respirations even and unlabored, symmetrical chest expansion Eyes: PERRL Musculoskeletal: Flexion and extension of right shoulder somewhat guarded secondary to pain, [antalgic gait noted] Neurological: Speech clear, no gross sensory deficit Assessment:: Degenerative disc disease of the lumbar spine with lumbar radiculopathy symptoms, low back pain, left hip pain, right shoulder pain Plan:: Patient is experiencing significant pain in his right shoulder with limited range of motion. I have discussed with the patient that he may benefit from a intra-articular shoulder injection. Risk and benefits were discussed with the patient and he would like to proceed forward with this plan of care. Patient has tried and failed conservative therapy such as oral medications, heat and ice, topicals, at home stretching and exercise for longer than 6 weeks. We will schedule him for a right intra-articular shoulder injection. Patient has been instructed to contact the clinic with any concerns before the next appointment. Dr. Saavedra has reviewed this note and agrees with this plan of care. This note was dictated using voice recognition software and make contain errors or omissions. [facility] Disclaimer: The information contained in this section may have been updated after the patient was seen, as this information can be updated by other users. Medical History Chest pain Diastolic dysfunction Pulmonary HTN Social History Smoking Status: Former smoker alcohol intake: former substance use type: denies use current occupational status: retired Travel in the last 8 weeks: None household members: spouse and family housing: house current occupational exposures/hazards: No caffeine: Yes
[2023-04-02 11:23] VITALS: BP 107/61; PULSE 59; RESP 18; O2SAT 97; BMI 34.8
== END ==
PROVIDERS: Visit Provider Nurse Practitioner Family
DX: M51.16 Intervertebral disc disorders with radiculopathy, lumbar region (principal); M25.511 Pain in right shoulder; M25.552 Pain in left hip
CPT/HCPCS: 99212; G0463

== ENCOUNTER 2023-04-10 12:33 | Day surgery (SDC) | payer BC, SELFPAY ==
[2023-04-10 12:55] VITALS: BP 109/64; PULSE 54; RESP 18; TEMP 36.1; O2SAT 96; BMI 35.6
[2023-04-10 13:26] VITALS: BP 107/69; PULSE 56; RESP 18; O2SAT 96
--- NOTE | 2023-04-10 13:33 | P.PCN_ITS ---
Procedure Date: 04/10/23 Time: 13:40 Anesthesiologist:: Venancio Gonzalez CRNA Complications:: None Pre-procedure Diagnosis:: Osteoarthritis right shoulder Post-procedure Diagnosis:: Same. Indications for Procedure:: Patient is a very pleasant 62-year-old male who comes our clinic today for right intra-articular shoulder injection. Patient has good and equal strength in the right arm. Slight restriction of range of motion due to pain in the right shoulder. Patient rates his pain 7/10. Procedure Details:: Procedure Details: Right shoulder intra-articular injection Informed consent was obtained risk and benefits of the procedure were explained to the patient. Patient was taken to the procedure room. The right shoulder was prepped using ChloraPrep. A 25-gauge needle was used first anteriorly, laterally, and then posteriorly to inject 10 mL bupivacaine 0.25% and Depo- Medrol 40 mg. Patient tolerated procedure well with no complications. Plan and Disposition:: Patient was discharged without incident.
== END 2023-04-10 13:26 | disposition home or self-care (01) ==
PROVIDERS: PCP Family Medicine; Visit Provider Nurse Anesthetist, Certified Registered
DX: M19.011 Primary osteoarthritis, right shoulder (principal)
CPT/HCPCS: 20610

== ENCOUNTER → 2023-04-25 13:36 | Outpatient (POV) | payer BC, SELFPAY ==
--- NOTE | 2023-04-25 14:12 | A.OFFVIS_ITS ---
[facility] Pain Management SOAP Note Subjective:: Patient is a pleasant 62-year-old male who presents today for follow-up of right intra-articular shoulder injection on 04/10/2023. We are currently treating the patient for degenerative disc disease of lumbar spine with lumbar radiculopathy symptoms, low back pain, left hip pain, right shoulder pain.? Today he rates his pain a 0 out of 10.? He states he has had 100% improvement of his right shoulder pain and it is still providing continued relief. He states he has been able to increase his activity and do things around the house such as mowing and weed eating with no additional pains. He denies any new trauma or injury.? Patient denies any change location or type of pain he experiences. He does take [id number] Tylenol as needed however he states he has not really had to use this following the injection.? He cannot tolerate any NSAIDs related to his cardic history. He is not on any scheduled medications.? His Maik is [phone].? Its been reviewed and appropriate. Review of Systems: General: No recent weight changes, no fever, no sleep disturbances Respiratory: No cough, no shortness of air, no recurring pulmonary infections Cardiovascular/peripheral vascular: No chest pain, no palpitations,? no edema, no shortness of breath Gastrointestinal: No new onset incontinence, normal bowel movements reported Genitourinary: No new onset incontinence Musculoskeletal: Low back pain Psychiatric: [Normal mood/affect] Neurological: [Denies weakness in extremities], [denies balance issues] Objective:: Physical Exam: General: Alert and oriented x3, no acute distress, pleasant and cooperative Lungs: Respirations even and unlabored, symmetrical chest expansion Eyes: PERRL Musculoskeletal: Flexion and extension of lumbar [spine] somewhat guarded secondary to pain, [antalgic gait noted] Neurological: Speech clear, no gross sensory deficit Assessment:: Degenerative disc disease of lumbar spine with lumbar radiculopathy symptoms, low back pain, left hip pain, right shoulder pain Plan:: Patient has had significant improvement following his intra-articular injection and does not require any additional injective therapy. Patient will return to clinic in 1 month for reevaluation of symptoms and plan of care. Patient has been instructed to contact the clinic with any concerns before the next appointment. Dr. Saavedra has reviewed this note and agrees with this plan of care. This note was dictated using voice recognition software and make contain errors or omissions. [facility] Disclaimer: The information contained in this section may have been updated after the patient was seen, as this information can be updated by other users. Medical History Chest pain Diastolic dysfunction Pulmonary HTN Social History Smoking Status: Former smoker alcohol intake: former substance use type: denies use current occupational status: retired Travel in the last 8 weeks: None household members: spouse and family housing: house current occupational exposures/hazards: No caffeine: Yes
[2023-04-25 15:41] VITALS: BP 113/66; PULSE 59; RESP 19; TEMP 36.4; O2SAT 99; BMI 35.7
== END ==
PROVIDERS: PCP Family Medicine; Visit Provider Nurse Practitioner Family
DX: M51.16 Intervertebral disc disorders with radiculopathy, lumbar region (principal); M25.552 Pain in left hip; M25.511 Pain in right shoulder
CPT/HCPCS: 99212; G0463

== ENCOUNTER → 2023-05-09 08:22 | Outpatient (CLI) | payer BC, SELFPAY ==
[2023-05-09 09:22] LABS: Basophils % 0.5 % (0.1-2.0); Eosinophils # 0.1 K/mm3 (0.0-0.4); Hematocrit 43.7 % (42.0-52.0); Hemoglobin 14.1 g/dL (14.1-18.0); Lymphocytes # 1.9 K/mm3 (0.7-4.5); Lymphocytes % 34.6 % (10-50); Mean Corpuscular HGB Conc 32.2 g/dL (31.8-35.4); Mean Corpuscular Hemoglobin 30.2 pg (27.0-31.2); Mean Corpuscular Volume 93.8 fl (80-94); Mean Platelet Volume 7.7 fl (7.4-10.4); Monocytes # 0.4 K/mm3 (0.1-1.0); Monocytes % 6.6 % (1.7-9.3); Neutrophils # 3.2 K/mm3 (1.8-7.8); Neutrophils % 57.3 % (37.0-80.0); Platelet Count 146 K/mm3 (142-424); Red Blood Count 4.65 M/mm3 (4.60-6.20); Red Cell Distribution Width 13.8 % (11.5-17.5); White Blood Count 5.6 K/mm3 (4.8-10.8)
[2023-05-09 09:32] LABS: Chloride 101 mmol/L (98-107)
[2023-05-09 09:33] LABS: Potassium 4.5 mmoL/L (3.5-5.1); Sodium 140 mmol/L (136-145)
[2023-05-09 09:35] LABS: Alanine Aminotransferase 35 U/L (12-78); Alkaline Phosphatase 72 U/L (38-126); Anion Gap 14.5 mEq/L (5-15); Aspartate Amino Transferase 33 U/L (17-59); Bilirubin,Indirect 1.3 mg/dL (0.0-0.9); Bilirubin,Total 1.3 mg/dl (0.2-1.3); Bilirubin,Unconjugated 1.5 mg/dL (0.0-1.1); Blood Urea Nitrogen 10 mg/dl (9-20); Carbon Dioxide 29 mmol/L (22.0-30.0); Cholesterol 124 mg/dl (140-200); Estimated Glomerular Filt Rate 86 ml/min (>60); GFR (African American) 104 ML/MIN (>60); Triglycerides 235 mg/dl (30-150); VLDL Cholesterol 47 mg/dL (0-40)
[2023-05-09 09:36] LABS: Albumin Level 4.2 g/dl (3.5-5.0); Calcium 8.8 mg/dl (8.4-10.2); Chol/HDL Ratio 4.8 (1-3.5); Glucose 142 mg/dl (74-100); HDL Cholesterol 26 mg/dl (40-60); Total Protein,Serum 6.8 g/dl (6.3-8.2)
[2023-05-09 09:47] LABS: Direct LDL Cholesterol 64.61 mg/dL (100-129)
[2023-05-09 09:51] LABS: Free T4 (Free Thyroxine) 0.94 ng/dl (0.78-2.19)
[2023-05-09 09:52] LABS: Hemoglobin A1C 6.4 % (4.0-6.0)
[2023-05-09 10:28] LABS: Thyroid Stimulating Hormone 2.08 uIU/mL (0.465-4.68)
== END ==
LOC: LAB 08:22
PROVIDERS: PCP Family Medicine; Visit Provider Nurse Practitioner Family
DX: R06.00 Dyspnea, unspecified (principal); I25.10 Atherosclerotic heart disease of native coronary artery without angina pectoris; I11.9 Hypertensive heart disease without heart failure; I27.20 Pulmonary hypertension, unspecified; R73.03 Prediabetes; E78.2 Mixed hyperlipidemia; R94.31 Abnormal electrocardiogram [ECG] [EKG]; I63.9 Cerebral infarction, unspecified; Z95.1 Presence of aortocoronary bypass graft; Z95.5 Presence of coronary angioplasty implant and graft
CPT/HCPCS: 80048; 80061; 80076; 83036; 84439; 84443; 85025

== ENCOUNTER → 2023-05-21 14:06 | Outpatient (POV) | payer BC, SELFPAY ==
[2023-05-21 14:23] VITALS: BP 123/68; PULSE 73; RESP 18; O2SAT 97; BMI 37.5
--- NOTE | 2023-05-21 14:35 | EXP.PAIN.SOA ---
[facility] Pain Management SOAP Note Subjective:: Patient is a pleasant 62-year-old male who presents today for follow-up. We are currently treating the patient for degenerative disc disease of lumbar spine with lumbar radiculopathy symptoms, low back pain, left hip pain, right shoulder pain. Today he rates his pain a 3 out of 10. Patient denies any new trauma or injury. Patient denies any change location or type of pain he experiences. Patient states he still is getting good relief from his intra-articular right shoulder injection that he had at the end of March. He states he has been able to increase his activity with decreased pain symptoms. Patient does state that he is slowly starting to feel his low back pain started up again however he does believe this is related to a family gathering that he had yesterday. He stated during that time he was up and cooking more and moving around more and may have aggravated his low back symptoms. Patient does state that right now he does not feel like it is enough that he needs injective therapy. Patient does just use [id number] medications such as Tylenol. He cannot tolerate NSAIDs related to cardiac history. He is not on any scheduled medications. His Maik is [id number]. Its been reviewed and appropriate. Review of Systems: General: No recent weight changes, no fever, no sleep disturbances Respiratory: No cough, no shortness of air, no recurring pulmonary infections Cardiovascular/peripheral vascular: No chest pain, no palpitations, no edema, no shortness of breath Gastrointestinal: No new onset incontinence, normal bowel movements reported Genitourinary: No new onset incontinence Musculoskeletal: Low back pain Psychiatric: [Normal mood/affect] Neurological: [Denies weakness in extremities], [denies balance issues] Objective:: Physical Exam: General: Alert and oriented x3, no acute distress, pleasant and cooperative Lungs: Respirations even and unlabored, symmetrical chest expansion Eyes: PERRL Musculoskeletal: Flexion and extension of lumbar [spine] somewhat guarded secondary to pain, [antalgic gait noted] Neurological: Speech clear, no gross sensory deficit Assessment:: Degenerative disc disease of lumbar spine with lumbar radiculopathy symptoms, low back pain, left hip pain, right shoulder pain Plan:: Patient continues to do well from his right shoulder intra-articular injection and does not require any injective therapy at this time. Patient will return to clinic in 2 months for reevaluation of symptoms and plan of care. Patient has been instructed to contact the clinic with any concerns before the next appointment. Dr. Saavedra has reviewed this note and agrees with this plan of care. This note was dictated using voice recognition software and make contain errors or omissions. [facility] Disclaimer: The information contained in this section may have been updated after the patient was seen, as this information can be updated by other users. Medical History Chest pain Diastolic dysfunction Pulmonary HTN Social History Smoking Status: Former smoker alcohol intake: former substance use type: denies use current occupational status: retired Travel in the last 8 weeks: None household members: spouse and family housing: house current occupational exposures/hazards: No caffeine: Yes
== END ==
PROVIDERS: PCP Family Medicine; Visit Provider Nurse Practitioner Family
DX: M51.16 Intervertebral disc disorders with radiculopathy, lumbar region (principal); M25.552 Pain in left hip; M25.511 Pain in right shoulder
CPT/HCPCS: 99212; G0463

== ENCOUNTER → 2023-08-06 14:43 | Outpatient (POV) | payer BC, SELFPAY ==
--- NOTE | 2023-08-06 15:25 | EXP.PAIN.SOA ---
[facility] Pain Management SOAP Note Subjective:: Patient is a pleasant 62-year-old male who presents today for follow-up. We are currently treating the patient for degenerative disc disease of lumbar spine with lumbar radiculopathy symptoms, low back pain, right shoulder pain. Today he rates his pain a 6 out of 10. Patient denies any new trauma or injury. He does state that he has been experiencing more pain in his low back along his bilateral hips. Patient states that this is an aching, throbbing sensation that is worse with increased activity. He states he recently went to [facility] and that he was the one who did the driving. He states overall it seemed fine however once he got out of the car he felt very stiff and had like a pinching sensation that radiated into his bilateral hips. Patient states as the week went on it progressively worsened. He does state the pain interferes with his ability perform activities of daily living such as cooking and cleaning. He states he has been having to double up on his Tylenol arthritis due to the worsening pain. He is interested in any help we may be able to provide. His Maik is [phone]. Its been reviewed and appropriate. Review of Systems: General: No recent weight changes, no fever, no sleep disturbances Respiratory: No cough, no shortness of air, no recurring pulmonary infections Cardiovascular/peripheral vascular: No chest pain, no palpitations, no edema, no shortness of breath Gastrointestinal: No new onset incontinence, normal bowel movements reported Genitourinary: No new onset incontinence Musculoskeletal: Low back pain, bilateral hip pain Psychiatric: [Normal mood/affect] Neurological: [Denies weakness in extremities], [denies balance issues] Objective:: Physical Exam: General: Alert and oriented x3, no acute distress, pleasant and cooperative Lungs: Respirations even and unlabored, symmetrical chest expansion Eyes: PERRL Musculoskeletal: Flexion and extension of lumbar [spine] somewhat guarded secondary to pain, [antalgic gait noted] point tenderness along bilateral SIs with positive bilateral Julito's, Ken's, Gaenslen's, compression and distraction exam Neurological: Speech clear, no gross sensory deficit Assessment:: Degenerative disc disease of lumbar spine with lumbar radiculopathy symptoms, low back pain, right shoulder pain, sacroiliitis bilateral Plan:: Patient is experiencing worsening pain in his low back with radiating symptoms into his bilateral hips with limited range of motion of his lumbar spine. Patient did have point tenderness along his bilateral SIs with positive bilateral Julito's, Ken's, Gaenslen's, compression and distraction exam. I have discussed with the patient that he may benefit from bilateral SI injections. Risk and benefits were explained to the patient and he would like to proceed forward with this plan of care. Patient will be scheduled for bilateral SI injections. Patient has been instructed to contact the clinic with any concerns before the next appointment. Dr. Saavedra has reviewed this note and agrees with this plan of care. This note was dictated using voice recognition software and make contain errors or omissions. [facility] Disclaimer: The information contained in this section may have been updated after the patient was seen, as this information can be updated by other users. Medical History Chest pain Diastolic dysfunction Pulmonary HTN Social History Smoking Status: Former smoker alcohol intake: former substance use type: denies use current occupational status: retired Travel in the last 8 weeks: None household members: spouse and family housing: house current occupational exposures/hazards: No caffeine: Yes
[2023-08-06 15:37] VITALS: BP 129/78; PULSE 59; RESP 19; O2SAT 94; BMI 35.7
== END ==
PROVIDERS: PCP Family Medicine; Visit Provider Nurse Practitioner Family
DX: M51.16 Intervertebral disc disorders with radiculopathy, lumbar region (principal); M25.511 Pain in right shoulder; M46.1 Sacroiliitis, not elsewhere classified
CPT/HCPCS: 99212; G0463

== ENCOUNTER 2023-08-21 08:52 | Day surgery (SDC) | payer BC, SELFPAY ==
[2023-08-21 09:10] VITALS: BP 137/72; PULSE 67; RESP 20; TEMP 36.5; O2SAT 90; BMI 35.6
--- NOTE | 2023-08-21 09:39 | P.PCN_ITS ---
Procedure Date: 08/21/23 Time: 09:29 Anesthesiologist:: Venancio Gonzalez CRNA Complications:: None Pre-procedure Diagnosis:: Bilateral sacroiliitis. Post-procedure Diagnosis:: Same. Indications for Procedure:: Patient is a very pleasant 62-year-old male comes our clinic today for bilateral sacroiliac joint injections. Patient complains of low lumbar back pain as well as bilateral posterior hip pain. He rates his pain 7/10. Patient reports having difficulty transitioning from sitting to standing. Difficulty ambulating for any length of time secondary to the pain. Procedure Details:: Procedure: Bilateral sacroiliac joint injections under fluoroscopy Informed consent was obtained and the risks and benefits of the procedure were explained to the patient.~ The patient was taken to the procedure room and noninvasive monitors were placed including a noninvasive blood pressure cuff and pulse oximeter.~ The patient was placed prone on the procedure table. Both hips were cleansed using Betadine as a cleansing solution. C-arm fluoroscopy was used to view the right sacroiliac joint.~ The skin and subcutaneous tissues were anesthetized using lidocaine 1.5% and a 25-gauge needle.~ After this, a 22-gauge spinal needle was inserted under fluoroscopic guidance into the inferior aspect of the right sacroiliac joint.~ Omnipaque dye was injected and good spread was seen throughout the joint.~ After this, approximately 5 mL of bupivacaine, 0.25% and Depo-Medrol, 40 mg was incrementally injected into the right sacroiliac joint. We then moved to the left sacroiliac joint.~ The skin and subcutaneous tissues were anesthetized using lidocaine 1.5% and a 25-gauge needle.~ After this, a 22- gauge spinal needle was inserted under fluoroscopic guidance into the inferior aspect of the left sacroiliac joint.~ Omnipaque dye was injected and good spread was seen throughout the joint. After this, approximately 5 mL of bupivacaine, 0.25% and Depo-Medrol, 40 mg was incrementally injected into the left sacroiliac joint.~ The patient tolerated the procedure well with no complications. The patient was observed in the Pain Clinic and then was discharged home neurologically intact. Plan and Disposition:: Patient was discharged without incident.
[2023-08-21 09:40] VITALS: BP 153/76; PULSE 63; RESP 18; O2SAT 99
== END 2023-08-21 09:40 | disposition home or self-care (01) ==
PROVIDERS: PCP Family Medicine; Visit Provider Nurse Anesthetist, Certified Registered
DX: M46.1 Sacroiliitis, not elsewhere classified (principal)
CPT/HCPCS: 27096; G0260; J1040

== ENCOUNTER → 2023-09-12 08:49 | Outpatient (POV) | payer BC, SELFPAY ==
--- NOTE | 2023-09-12 09:07 | EXP.PAIN.SOA ---
[facility] Pain Management SOAP Note Subjective:: Patient is a pleasant 62-year-old male who presents today for follow-up of bilateral SI injections on 08/21/2023. We are currently treating the patient for degenerative disc disease of lumbar spine with lumbar radiculopathy symptoms, low back pain, right shoulder pain. Today he states that he did have improvement following his SI injections and that it is still continuing to help. He does state that these injections did not seem to do as well as his last injections. He does rate his pain today a 1 out of 10 and states that it is more related to his right shoulder. He does state this is an aching, throbbing sensation that is worse with increased activity. He does state his shoulder can have limited range of motion. He does state that this is still manageable at this time. Patient has previously had intra-articular shoulder injections that did provide significant relief. Patient is currently using Tylenol arthritis for times of worsening pain. His Maik has been reviewed and is appropriate. Review of Systems: General: No recent weight changes, no fever, no sleep disturbances Respiratory: No cough, no shortness of air, no recurring pulmonary infections Cardiovascular/peripheral vascular: No chest pain, no palpitations, no edema, no shortness of breath Gastrointestinal: No new onset incontinence, normal bowel movements reported Genitourinary: No new onset incontinence Musculoskeletal: Right shoulder pain Psychiatric: [Normal mood/affect] Neurological: [Denies weakness in extremities], [denies balance issues] Objective:: Physical Exam: General: Alert and oriented x3, no acute distress, pleasant and cooperative Lungs: Respirations even and unlabored, symmetrical chest expansion Eyes: PERRL Musculoskeletal: Flexion and extension of right shoulder somewhat guarded secondary to pain Neurological: Speech clear, no gross sensory deficit Assessment:: Degenerative disc disease of lumbar spine with lumbar radiculopathy symptoms, low back pain, right shoulder pain Plan:: Patient has had significant improvement from his SI injections and does not require any additional injective therapy for his low back pain at this time. I have discussed with the patient that when his shoulder pain gets unmanageable to let us know that he would benefit from a repeat intra-articular shoulder injection. Risk and benefits were discussed with the patient and we will follow-up with him at his next appointment regarding this joint pain. Patient will return to clinic in 1 month for reevaluation of symptoms and plan of care. Patient has been instructed to contact the clinic with any concerns before the next appointment. Dr. Saavedra has reviewed this note and agrees with this plan of care. This note was dictated using voice recognition software and make contain errors or omissions. [facility] Disclaimer: The information contained in this section may have been updated after the patient was seen, as this information can be updated by other users. Medical History Chest pain Diastolic dysfunction Pulmonary HTN Social History (Updated 08/21/23 @ 09:15 by Latrice Renee RN) Smoking Status: Former smoker tobacco type: cigarettes alcohol intake: former substance use type: denies use current occupational status: retired Travel in the last 8 weeks: None household members: spouse and family housing: house current occupational exposures/hazards: No caffeine: Yes
[2023-09-12 09:13] VITALS: BP 155/77; PULSE 55; RESP 18; O2SAT 96; BMI 34.5
== END ==
PROVIDERS: PCP Family Medicine; Visit Provider Nurse Practitioner Family
DX: M51.16 Intervertebral disc disorders with radiculopathy, lumbar region (principal); M25.511 Pain in right shoulder; M46.1 Sacroiliitis, not elsewhere classified
CPT/HCPCS: 99212; G0463

== ENCOUNTER → 2023-10-10 10:00 | Outpatient (POV) | payer BC, SELFPAY ==
--- NOTE | 2023-10-10 10:52 | EXP.PAIN.SOA ---
[facility] Pain Management SOAP Note Subjective:: Patient is a pleasant 62-year-old male who presents today for follow-up. We are currently treating the patient for degenerative disc disease of lumbar spine with lumbar radiculopathy symptoms, low back pain, right shoulder pain. Today he rates his pain a 0 out of 10. Patient denies any new trauma or injury. He does state that he is starting to have a little bit more right shoulder pain with popping as well as stiffness into his low back and hips. Patient states he has just been using Tylenol and that does seem to help make it more tolerable. Patient states it is not bad enough at this point that he feels like he needs any injections. His Maik has been reviewed and is appropriate. Review of Systems: General: No recent weight changes, no fever, no sleep disturbances Respiratory: No cough, no shortness of air, no recurring pulmonary infections Cardiovascular/peripheral vascular: No chest pain, no palpitations, no edema, no shortness of breath Gastrointestinal: No new onset incontinence, normal bowel movements reported Genitourinary: No new onset incontinence Musculoskeletal: Low back pain, shoulder pain Psychiatric: [Normal mood/affect] Neurological: [Denies weakness in extremities], [denies balance issues] Objective:: Physical Exam: General: Alert and oriented x3, no acute distress, pleasant and cooperative Lungs: Respirations even and unlabored, symmetrical chest expansion Eyes: PERRL Musculoskeletal: Flexion and extension of lumbar [spine] somewhat guarded secondary to pain, [antalgic gait noted] Neurological: Speech clear, no gross sensory deficit Assessment:: Degenerative disc disease of lumbar spine with lumbar radiculopathy symptoms, low back pain, right shoulder pain Plan:: Patient is doing well currently and does not require any additional injection therapy. Patient will return to clinic in 1 month for reevaluation of symptoms and plan of care. Patient has been instructed to contact the clinic with any concerns before the next appointment. Dr. Saavedra has reviewed this note and agrees with this plan of care. This note was dictated using voice recognition software and make contain errors or omissions. [facility] Disclaimer: The information contained in this section may have been updated after the patient was seen, as this information can be updated by other users. Medical History Chest pain Diastolic dysfunction Pulmonary HTN Social History (Updated 08/21/23 @ 09:15 by Latrice Renee RN) Smoking Status: Former smoker tobacco type: cigarettes alcohol intake: former substance use type: denies use current occupational status: retired Travel in the last 8 weeks: None household members: spouse and family housing: house current occupational exposures/hazards: No caffeine: Yes
[2023-10-10 12:31] VITALS: BP 122/65; PULSE 55; RESP 18; O2SAT 96; BMI 35.7
== END ==
PROVIDERS: PCP Family Medicine; Visit Provider Nurse Practitioner Family
DX: M51.16 Intervertebral disc disorders with radiculopathy, lumbar region (principal); M54.50 Low back pain, unspecified; M25.511 Pain in right shoulder
CPT/HCPCS: 99212; G0463

== ENCOUNTER → 2023-11-06 09:58 | Outpatient (POV) | payer BC, SELFPAY ==
--- NOTE | 2023-11-06 10:11 | EXP.PAIN.SOA ---
[facility] Pain Management SOAP Note Subjective:: Patient is a very pleasant 62-year-old male comes our clinic today for follow-up discussion in regards to his right shoulder pain that he describes as constant, dull, aching. Patient has had a long history with right shoulder pain secondary to rotator cuff tendinitis. No surgery has been indicated in the past. He has been through several rounds of physical therapy over the last 4 to 6 years. He had intra-articular injection of cortisone 8 months ago with significant improvement in terms of his overall mobility and pain. He is requesting a repeat intra-articular shoulder injection of cortisone. I think this is reasonable. Upon examination he has 5/5 strength. Simply, some limited range of motion due to shoulder pain. His Maik #[id number] is been reviewed and appropriate. Objective:: DJD right shoulder. Chronic right shoulder pain. Rotator cuff tendinitis right shoulder. Assessment:: Patient is awake alert [place] x 3 in no acute distress. Flexion-extension cervical lumbar spine normal. Deep tendon reflexes upper and lower extremities normal. Motor strength upper and lower extremities normal. There is no gross sensory deficit. Gait is normal. Plan:: We will plan right intra-articular shoulder injection. Discussed in detail with the patient regarding injection details. He wishes to proceed. [facility] Disclaimer: The information contained in this section may have been updated after the patient was seen, as this information can be updated by other users. Medical History Chest pain Diastolic dysfunction Pulmonary HTN Social History (Updated 08/21/23 @ 09:15 by Latrice Renee RN) Smoking Status: Former smoker tobacco type: cigarettes alcohol intake: former substance use type: denies use current occupational status: retired Travel in the last 8 weeks: None household members: spouse and family housing: house current occupational exposures/hazards: No caffeine: Yes
[2023-11-06 10:18] VITALS: BP 128/76; PULSE 66; RESP 18; O2SAT 95; BMI 35.1
== END ==
LOC: SC.PAIN 09:58
PROVIDERS: PCP Family Medicine; Visit Provider Nurse Anesthetist, Certified Registered
DX: M19.011 Primary osteoarthritis, right shoulder (principal); M25.511 Pain in right shoulder; G89.29 Other chronic pain; M75.41 Impingement syndrome of right shoulder
CPT/HCPCS: 99212; G0463

== ENCOUNTER → 2023-11-07 09:23 | Outpatient (CLI) | payer BC, SELFPAY ==
[2023-11-07 09:59] LABS: Basophils # 0.1 K/mm3 (0-0.2); Basophils % 1.3 % (0.1-2.0); Eosinophils # 0.1 K/mm3 (0.0-0.4); Eosinophils % 1.1 % (0.1-12.0); Hematocrit 42.6 % (42.0-52.0); Lymphocytes # 2.3 K/mm3 (0.7-4.5); Lymphocytes % 33.3 % (10-50); Mean Corpuscular HGB Conc 35.1 g/dL (31.8-35.4); Mean Corpuscular Hemoglobin 32.3 pg (27.0-31.2); Mean Corpuscular Volume 91.9 fl (80-94); Mean Platelet Volume 8.3 fl (7.4-10.4); Monocytes # 0.5 K/mm3 (0.1-1.0); Monocytes % 6.9 % (1.7-9.3); Neutrophils % 57.5 % (37.0-80.0); Platelet Count 166 K/mm3 (142-424); Red Blood Count 4.63 M/mm3 (4.60-6.20); White Blood Count 6.9 K/mm3 (4.8-10.8)
[2023-11-07 10:25] LABS: Alanine Aminotransferase 33 U/L (12-78); Albumin Level 4.4 g/dl (3.5-5.0); Alkaline Phosphatase 72 U/L (38-126); Aspartate Amino Transferase 32 U/L (17-59); Bilirubin,Indirect 1.4 mg/dL (0.0-0.9); Bilirubin,Total 1.4 mg/dl (0.2-1.3); Bilirubin,Unconjugated 1.6 mg/dL (0.0-1.1); Blood Urea Nitrogen 10 mg/dl (9-20); Calcium 8.5 mg/dl (8.4-10.2); Carbon Dioxide 27 mmol/L (22.0-30.0); Chloride 104 mmol/L (98-107); Chol/HDL Ratio 5.2 (1-3.5); Cholesterol 120 mg/dl (140-200); Estimated Glomerular Filt Rate 98 ml/min (>60); GFR (African American) 119 ML/MIN (>60); Glucose 156 mg/dl (74-100); HDL Cholesterol 23 mg/dl (40-60); Magnesium 1.6 mg/dl (1.6-2.3); Sodium 138 mmol/L (136-145); Total Protein,Serum 7.2 g/dl (6.3-8.2); Triglycerides 260 mg/dl (30-150); VLDL Cholesterol 52 mg/dL (0-40)
[2023-11-07 10:36] LABS: Direct LDL Cholesterol 67.27 mg/dL (100-129)
[2023-11-07 10:41] LABS: Free T4 (Free Thyroxine) 0.92 ng/dl (0.78-2.19)
[2023-11-07 10:55] LABS: Thyroid Stimulating Hormone 1.77 uIU/mL (0.465-4.68)
[2023-11-07 16:14] LABS: Hemoglobin A1C 6.3 % (4.0-6.0)
== END ==
PROVIDERS: PCP Family Medicine; Visit Provider Physician Assistant
DX: I25.10 Atherosclerotic heart disease of native coronary artery without angina pectoris (principal); I10 Essential (primary) hypertension; I27.20 Pulmonary hypertension, unspecified; E78.5 Hyperlipidemia, unspecified; R53.83 Other fatigue; R73.03 Prediabetes; R94.31 Abnormal electrocardiogram [ECG] [EKG]; Z95.1 Presence of aortocoronary bypass graft; Z95.5 Presence of coronary angioplasty implant and graft
CPT/HCPCS: 36415; 80048; 80061; 80076; 83036; 83735; 84439; 84443; 85025

== ENCOUNTER 2023-11-23 10:35 | Day surgery (SDC) | payer BC, SELFPAY ==
[2023-11-23 10:53] VITALS: BP 133/73; PULSE 64; RESP 16; O2SAT 100; BMI 36.6
[2023-11-23] MEDS: methylPREDNISolone ACETATE 80MG/ML VIAL 80 MG (11:17)
[2023-11-23] MEDS: BUPIVACAINE 0.25% 10ML INJ 25 MG IJ (11:18)
[2023-11-23] MEDS: LIDOCAINE 1% 5ML PF VIAL 5 ML (11:18)
[2023-11-23 11:30] VITALS: BP 131/77; PULSE 62; RESP 16; O2SAT 100
--- NOTE | 2023-11-23 12:17 | EXP.PAIN.PRO ---
Procedure Date: 11/23/23 Time: 12:18 Anesthesiologist:: Delonte Saavedra MD Complications:: None Pre-procedure Diagnosis:: Right shoulder pain with rotator cuff tendinitis Post-procedure Diagnosis:: Same Indications for Procedure:: This patient is a pleasant 62-year-old white male who we have been treating for right shoulder pain secondary to rotator cuff tendinitis. He has done well with injections into his right shoulder. He has a right intra-articular injection which gave him 4 months relief of pain symptoms. Pain is started to return we will do a repeat right shoulder injection today. Procedure Details:: Right shoulder intra-articular injection Informed consent was obtained risk and benefits of the procedure explained to the patient. Patient was taken the procedure room. Right shoulder was prepped using ChloraPrep. A 25-gauge needle was used and we injected 10 mL bupivacaine 0.25% and Depo-Medrol 40 mg into the right shoulder joint and in and around the rotator cuff. Patient tolerated the procedure well with no complications. Plan and Disposition:: Will follow-up with this patient in 2 weeks. Will reevaluate symptoms at that time.
== END 2023-11-23 11:30 | disposition home or self-care (01) ==
LOC: SC.PAINP 10:37
PROVIDERS: PCP Family Medicine; Visit Provider Anesthesiology
DX: M75.81 Other shoulder lesions, right shoulder (principal); M25.511 Pain in right shoulder
CPT/HCPCS: 20610; J1040

== ENCOUNTER → 2023-12-03 08:17 | Outpatient (POV) | payer BC, SELFPAY ==
[2023-12-03 08:34] VITALS: BP 124/72; PULSE 66; RESP 18; O2SAT 93; BMI 36.6
--- NOTE | 2023-12-03 08:39 | EXP.PAIN.SOA ---
[facility] Pain Management SOAP Note Subjective:: Patient is a pleasant 62-year-old male who presents today for follow-up of intra-articular right shoulder injection on 11/23/2023.We are currently treating the patient for degenerative disc disease of lumbar spine with lumbar radiculopathy symptoms, low back pain, right shoulder pain. Today he rates his pain a 1 out of 10. Patient denies any new trauma or injury. Patient does state that he has had at least 85% improvement following this injection and feels like it is still continuing to provide relief. Patient does state that he has better range of movements and feels overall more functional. Patient does state that the cold weather still seems to aggravate his symptoms often causing worsening stiffness. Patient does also state that he has had less popping in his right shoulder joint following this injection. His Maik has been reviewed and is appropriate. Review of Systems: General: No recent weight changes, no fever, no sleep disturbances Respiratory: No cough, no shortness of air, no recurring pulmonary infections Cardiovascular/peripheral vascular: No chest pain, no palpitations, no edema, no shortness of breath Gastrointestinal: No new onset incontinence, normal bowel movements reported Genitourinary: No new onset incontinence Musculoskeletal: Low back pain, shoulder pain Psychiatric: [Normal mood/affect] Neurological: [Denies weakness in extremities], [denies balance issues] Objective:: Physical Exam: General: Alert and oriented x3, no acute distress, pleasant and cooperative Lungs: Respirations even and unlabored, symmetrical chest expansion Eyes: PERRL Musculoskeletal: Flexion and extension of lumbar [spine] somewhat guarded secondary to pain, [antalgic gait noted] Neurological: Speech clear, no gross sensory deficit Assessment:: Degenerative disc disease of lumbar spine with lumbar radiculopathy symptoms, low back pain, right shoulder pain Plan:: Patient has had significant improvement following his right intra-articular shoulder injection and does not require any additional injection therapy at this time. Patient will return to clinic in 1 month for reevaluation of symptoms and plan of care. Patient has been instructed to contact the clinic with any concerns before the next appointment. Dr. Saavedra has reviewed this note and agrees with this plan of care. This note was dictated using voice recognition software and make contain errors or omissions. [facility] Disclaimer: The information contained in this section may have been updated after the patient was seen, as this information can be updated by other users. Medical History Bilateral otitis externa Bilateral tinnitus Chest pain Chronic eustachian tube dysfunction Diastolic dysfunction Hearing loss Impacted cerumen, bilateral Pulmonary HTN Screening for colon cancer Social History Smoking Status: Former smoker tobacco type: cigarettes alcohol intake: former substance use type: denies use current occupational status: retired Travel in the last 8 weeks: None household members: spouse and family housing: house current occupational exposures/hazards: No caffeine: Yes
== END ==
LOC: SC.PAIN 08:18
PROVIDERS: PCP Family Medicine; Visit Provider Nurse Practitioner Family
DX: M51.16 Intervertebral disc disorders with radiculopathy, lumbar region (principal); M25.511 Pain in right shoulder
CPT/HCPCS: 99212; G0463

== ENCOUNTER 2024-01-03 09:14 | Outpatient (POV) | payer BC, SELFPAY ==
--- NOTE | 2024-01-03 09:34 | EXP.PAIN.SOA ---
[facility] Pain Management SOAP Note Subjective:: Patient is a pleasant 63-year-old male who presents today for 1 month follow-up. We are currently treating the patient for degenerative disc disease of lumbar spine with lumbar radiculopathy symptoms, low back pain, right shoulder pain. today he rates his pain a 2 out of 10. Patient denies any new trauma or injury. He states he continues to have improvement of his right shoulder following his intra-articular injection back in November. He states that he does feel overall more functional. His Maik has been reviewed and is appropriate. Review of Systems: General: No recent weight changes, no fever, no sleep disturbances Respiratory: No cough, no shortness of air, no recurring pulmonary infections Cardiovascular/peripheral vascular: No chest pain, no palpitations, no edema, no shortness of breath Gastrointestinal: No new onset incontinence, normal bowel movements reported Genitourinary: No new onset incontinence Musculoskeletal: Right shoulder pain Psychiatric: [Normal mood/affect] Neurological: [Denies weakness in extremities], [denies balance issues] Objective:: Physical Exam: General: Alert and oriented x3, no acute distress, pleasant and cooperative Lungs: Respirations even and unlabored, symmetrical chest expansion Eyes: PERRL Musculoskeletal: Flexion and extension of right shoulder somewhat guarded secondary to pain, [antalgic gait noted] Neurological: Speech clear, no gross sensory deficit Assessment:: Degenerative disc disease of lumbar spine with lumbar radiculopathy symptoms, low back pain, right shoulder pain Plan:: Patient continues to have significant relief from his intra-articular injection and does not require any additional injection therapy at this time. Patient will return to clinic in 3 months for reevaluation of symptoms and plan of care. Patient has been instructed to contact the clinic with any concerns before the next appointment. Dr. Saavedra has reviewed this note and agrees with this plan of care. This note was dictated using voice recognition software and make contain errors or omissions. [facility] Disclaimer: The information contained in this section may have been updated after the patient was seen, as this information can be updated by other users. Medical History Bilateral otitis externa Bilateral tinnitus Chest pain Chronic eustachian tube dysfunction Diastolic dysfunction Hearing loss Impacted cerumen, bilateral Pulmonary HTN Screening for colon cancer Social History Smoking Status: Former smoker tobacco type: cigarettes alcohol intake: former substance use type: denies use current occupational status: retired Travel in the last 8 weeks: None household members: spouse and family housing: house current occupational exposures/hazards: No caffeine: Yes
[2024-01-03 11:43] VITALS: BP 126/79; PULSE 70; RESP 18; O2SAT 93; BMI 36.5
== END 2024-01-03 23:59 ==
LOC: SC.PAIN 09:15
PROVIDERS: PCP Family Medicine; Visit Provider Nurse Practitioner Family
DX: M51.16 Intervertebral disc disorders with radiculopathy, lumbar region (principal); M25.511 Pain in right shoulder
CPT/HCPCS: 99212; G0463

== ENCOUNTER 2024-01-28 08:59 | Outpatient (POV) | payer BC, SELFPAY | END 2024-01-28 23:59 | disposition home or self-care (01) | LOC: SC 08:59 | PROVIDERS: Visit Provider Specialist/Technologist | DX: Z00.00 Encounter for general adult medical examination without abnormal findings (principal) ==

== ENCOUNTER 2024-02-28 10:26 | Day surgery (SDC) | payer BC, SELFPAY ==
[2024-02-26 13:41] VITALS: BMI 36.2
[2024-02-28] MEDS: LACTATED RINGERS 1000ML 1,000 ML 25 ML IV (10:53)
[2024-02-28 10:59] VITALS: BP 124/66; PULSE 57; RESP 18; TEMP 36.6; O2SAT 96
[2024-02-28 11:14] LABS: POC Glucose,Bedside 124 (70-110)
--- NOTE | 2024-02-28 12:10 | EXP.ANES.CKL ---
[facility] Disclaimer: The information contained in this section may have been updated after the patient was seen, as this information can be updated by other users. Medical History Tinnitus aurium Bilateral otitis externa Chronic eustachian tube dysfunction Impacted cerumen, bilateral Hearing loss Screening for colon cancer Bilateral tinnitus Chest pain Pulmonary HTN Diastolic dysfunction Surgical History Hx of CABG History of cholecystectomy Family History Other Family history of diabetes mellitus type II Social History Smoking Status: Former smoker tobacco type: cigarettes alcohol intake: former substance use type: denies use current occupational status: retired Travel in the last 8 weeks: None household members: spouse and family housing: house current occupational exposures/hazards: No caffeine: Yes [facility] Anesthesia Checklist Structural Data Admitted From: Direct Admit Planned Operative Procedure/s: colonocopy Consent for Planned Operative Procedure(s) Verified: Yes Verified Documents: Surgical Consent and History and Physical NPO Status Verified Time NPO: 00:00 Additional verifications Patient : No Anesthesia Reactions: No Hx Blood Transfusions: No Blood Transfusion Reaction: No Cephalosporin Allergy: No Previous Colonoscopy: No Airway Assessment Mallampati Score:: Class III C-Spine Mobility Assessed: Yes TMJ Mobility Assessed: Yes Dentition: Edentulous Neurological Assessment Level of Consciousness: Awake, Alert, Appropriate and Follows Commands Anesthesia Plan Anesthesia Risk discussed: Yes ASA Class: III Anesthesia Type: MAC Preoperative Comments Pre-Operative Comments: Two vessel CABAGE 3 one-half years ago. Borderline DV. Off ASA 7 days, and Plavix fo 3 days. takes statins.
[2024-02-28 13:13] VITALS: O2SAT 96
--- NOTE | 2024-02-28 13:32 | HMH.SCOPE ---
Procedure: Date: 02/28/24 Patient Date of :: 1960 Procedure Performed:: Screening colonoscopy Indications:: Family history, colon cancer screening Performing Provider:: Alvaro Kohli MD Referring Provider:: Grabiel Mackey MD Sedation:: Propofol Procedure:: After placing the patient in the left lateral decubitus position, the colonoscopy was gently inserted into the rectum and under direct visualization advanced to the cecum which was identified by transillumination in the right lower quadrant, identification of the ileocecal valve, appendiceal orifice, and cecal strap. Color, texture, mucosa, and anatomy of the colon were carefully examined with the scope. Findings:: Anal canal: normal Rectum: normal Sigmoid colon: normal without polyps or inflammatory changes, scattered diverticulosis Descending colon: normal without polyps or inflammatory changes Splenic flexure: normal Transverse colon: normal without polyps or inflammatory changes Hepatic flexure: normal Ascending colon: normal without polyps or inflammatory changes Cecum: normal Terminal ileum: not visualized Impression: Scattered sigmoid diverticulosis otherwise normal colonoscopy Recommendations:: Follow up examination in about FIVE years or so, sooner if clinically indicated in view of strong family history. Complications:: None Estimated blood obtained (mL): 0 Colonoscopy Component Colonoscopy Component Was a colonoscopy performed during today's procedure?: Yes Recommended follow up colonoscopy of at least 10 years?: No If no, follow up colonoscopy recommended in ___ years?: Five Reason for not recommending >/= 10 yr follow-up interval?: family History
[2024-02-28 13:34] VITALS: BP 105/62; PULSE 67; RESP 16; TEMP 36.3; O2SAT 92
[2024-02-28 13:44] VITALS: BP 113/81; PULSE 60; RESP 16; TEMP 36.3; O2SAT 95
[2024-02-28 13:54] VITALS: BP 106/66; PULSE 55; RESP 16; TEMP 36.3; O2SAT 96
[2024-02-28 14:04] VITALS: BP 98/62; PULSE 53; RESP 16; TEMP 36.3; O2SAT 97
== END 2024-02-28 14:15 | disposition home or self-care (01) ==
PROVIDERS: PCP Family Medicine; Visit Provider Internal Medicine Gastroenterology
PROC: (CPT 45378; principal; 2024-02-28 12:00)
DX: Z12.11 Encounter for screening for malignant neoplasm of colon (principal); Z80.0 Family history of malignant neoplasm of digestive organs; K57.30 Diverticulosis of large intestine without perforation or abscess without bleeding; Z79.899 Other long term (current) drug therapy
CPT/HCPCS: 45378; 82962

== ENCOUNTER 2024-04-02 09:02 | Outpatient (POV) | payer BC, SELFPAY ==
--- NOTE | 2024-04-02 09:10 | A.OFFVIS_ITS ---
[facility] Pain Management SOAP Note Subjective:: Patient is a pleasant 63-year-old male who presents today for follow-up. We are currently treating the patient for degenerative disc disease of lumbar spine with lumbar radiculopathy symptoms, low back pain, right shoulder pain. today he rates his pain a 3 out of 10. Patient denies any new trauma or injury. He does state that the pain will go up much higher with increased activity. He does state that he was just weed eating yesterday and had to stop and take a break because of increased pain and weakness in that shoulder. He states the pain is starting to interfere with his ability perform activities of daily living such as cooking and cleaning patient did have a intra-articular injection back in November that provided significant relief and has lasted up until the last couple of weeks. Patient does state that he is interested in repeating this injection. He states while this injection was working really well he did have overall improved function. His Maik has been reviewed and is appropriate. Review of Systems: General: No recent weight changes, no fever, no sleep disturbances Respiratory: No cough, no shortness of air, no recurring pulmonary infections Cardiovascular/peripheral vascular: No chest pain, no palpitations, no edema, no shortness of breath Gastrointestinal: No new onset incontinence, normal bowel movements reported Genitourinary: No new onset incontinence Musculoskeletal: Right shoulder pain Psychiatric: [Normal mood/affect] Neurological: [Denies weakness in extremities], [denies balance issues] Objective:: Physical Exam: General: Alert and oriented x3, no acute distress, pleasant and cooperative Lungs: Respirations even and unlabored, symmetrical chest expansion Eyes: PERRL Musculoskeletal: Flexion and extension of right shoulder somewhat guarded secondary to pain, [antalgic gait noted] Neurological: Speech clear, no gross sensory deficit Assessment:: Degenerative disc disease of lumbar spine with lumbar radiculopathy symptoms, right shoulder pain Plan:: Patient is experiencing pain in his right shoulder with limited range of motion. Patient did previously have 85% relief with his last intra-articular injection back in November and did have overall improved function with decreased pain. I have discussed with patient that he may benefit from repeat intra-articular injection. Risk and benefits were discussed with patient and he would like to proceed forward with this plan of care. We will schedule the patient for his repeat right shoulder intra-articular injection. Patient has continued at home exercising and stretching between injections with minimal relief. Patient has been instructed to contact the clinic with any concerns before the next appointment. Dr. Saavedra has reviewed this note and agrees with this plan of care. This note was dictated using voice recognition software and make contain errors or omissions. [facility] Disclaimer: The information contained in this section may have been updated after the patient was seen, as this information can be updated by other users. Medical History Tinnitus aurium Bilateral otitis externa Chronic eustachian tube dysfunction Impacted cerumen, bilateral Hearing loss Screening for colon cancer Bilateral tinnitus Chest pain Pulmonary HTN Diastolic dysfunction Surgical History Hx of CABG History of cholecystectomy Family History Other Family history of diabetes mellitus type II Social History Smoking Status: Former smoker tobacco type: cigarettes alcohol intake: former substance use type: denies use current occupational status: retired Travel in the last 8 weeks: None household members: spouse and family housing: house current occupational exposures/hazards: No caffeine: Yes
[2024-04-02 09:15] VITALS: BP 115/74; PULSE 59; RESP 18; O2SAT 95; BMI 35.7
== END 2024-04-02 23:59 | disposition home or self-care (01) ==
LOC: SC.PAIN 09:03
PROVIDERS: PCP Family Medicine; Visit Provider Nurse Practitioner Family
DX: M51.16 Intervertebral disc disorders with radiculopathy, lumbar region (principal); M25.511 Pain in right shoulder
CPT/HCPCS: 99212; G0463

== ENCOUNTER 2024-04-22 09:06 | Day surgery (SDC) | payer BC, SELFPAY ==
[2024-04-22 09:22] VITALS: BP 139/70; PULSE 58; RESP 20; TEMP 36.3; O2SAT 99; BMI 36.5
--- NOTE | 2024-04-22 09:37 | P.PCN_ITS ---
Procedure Date: 04/22/24 Time: 09:30 Anesthesiologist:: Venancio Gonzalez CRNA Complications:: None Pre-procedure Diagnosis:: DJD right shoulder. Chronic right shoulder pain. Post-procedure Diagnosis:: Same. Indications for Procedure:: Patient very pleasant 63-year-old male comes our clinic today for a right intra- articular shoulder injection. Patient has 5/5 strength in the right arm. However, decreased range of motion secondary to pain in the right shoulder. Patient rates his pain today 7/10. Patient reports same injection on the right shoulder was significant in terms of relief back in November. Procedure Details:: Informed consent was obtained risk and benefits of the procedure were explained to the patient. Patient was taken to the procedure room. The right shoulder was prepped using ChloraPrep. A 25-gauge needle was used first anteriorly, laterally, and then posteriorly to inject 10 mL bupivacaine 0.25% and Depo- Medrol 40 mg. Patient tolerated procedure well with no complications. Plan and Disposition:: Patient was discharged without incident.
[2024-04-22 09:45] VITALS: BP 127/43; PULSE 54; RESP 16; O2SAT 96
[2024-04-22] MEDS: BUPIVACAINE 0.25% 10ML INJ 25 MG IJ (09:45)
[2024-04-22] MEDS: methylPREDNISolone ACETATE 80MG/ML VIAL 80 MG (09:45)
[2024-04-22 09:46] VITALS: BP 143/69; PULSE 53; RESP 18; O2SAT 96
[2024-04-22] MEDS: LIDOCAINE 1% 5ML PF VIAL 5 ML (09:46)
[2024-04-22 09:47] VITALS: BP 143/69; PULSE 53; RESP 18; O2SAT 96
== END 2024-04-22 09:46 | disposition home or self-care (01) ==
PROVIDERS: PCP Family Medicine; Visit Provider Nurse Anesthetist, Certified Registered
DX: M19.011 Primary osteoarthritis, right shoulder (principal); M25.511 Pain in right shoulder; G89.29 Other chronic pain
CPT/HCPCS: 20610; J1010

== ENCOUNTER 2024-05-07 10:32 | Outpatient (POV) | payer BC, SELFPAY ==
[2024-05-07 10:42] VITALS: BP 126/72; PULSE 59; RESP 16; O2SAT 96; BMI 36.5
--- NOTE | 2024-05-07 10:51 | A.OFFVIS_ITS ---
[facility] Disclaimer: The information contained in this section may have been updated after the patient was seen, as this information can be updated by other users. Medical History (Updated 05/07/24 @ 10:58 by Leta Farnsworth APRN) Tinnitus aurium Bilateral otitis externa Chronic eustachian tube dysfunction Impacted cerumen, bilateral Hearing loss Screening for colon cancer Bilateral tinnitus Chest pain Pulmonary HTN Diastolic dysfunction Surgical History Hx of CABG History of cholecystectomy Family History Other Family history of diabetes mellitus type II Social History Smoking Status: Former smoker tobacco type: cigarettes alcohol intake: former substance use type: denies use current occupational status: retired Travel in the last 8 weeks: None household members: spouse and family housing: house current occupational exposures/hazards: No caffeine: Yes PM Subjective & Objective Subjective Subjective:: Patient is a pleasant 63-year-old male who presents today for follow-up of right intra-articular shoulder injection on 04/22/2024. Today he rates that pain a 2 out of 10 and states he has had at least 80 to 90% relief. He does however state that his right hip is now giving him problems and rates his pain they are a 7 out of 10. Patient states the pain is a constant aching, throbbing sensation with increased activity or ambulation. Patient has had prior SI injections that did provide more than 80% relief lasting more than 3 months. Patient is interested in repeating these injections because he did have significant improvement with overall decreased pain. Patient does describe this pain now as a aching, throbbing sensation and denies any radiating symptoms into his legs. Patient states the pain is worse when he is doing activities like having to mow the yard that he is constantly having to change positions back and forth off of his hip due to the worsening pain. He does state the pain interferes with his ability perform activities of daily living such as cooking and cleaning. His Maik has been reviewed and is appropriate. Review of Systems: General: No recent weight changes, no fever, no sleep disturbances Respiratory: No cough, no shortness of air, no recurring pulmonary infections Cardiovascular/peripheral vascular: No chest pain, no palpitations, no edema, no shortness of breath Gastrointestinal: No new onset incontinence, normal bowel movements reported Genitourinary: No new onset incontinence Musculoskeletal: Low back pain, right hip pain Psychiatric: [Normal mood/affect] Neurological: [Denies weakness in extremities], [denies balance issues] Pain at rest (0-10 scale): 7 Objective Objective:: Physical Exam: General: Alert and oriented x3, no acute distress, pleasant and cooperative Lungs: Respirations even and unlabored, symmetrical chest expansion Eyes: PERRL Musculoskeletal: Flexion and extension of lumbar [spine] somewhat guarded secondary to pain, [antalgic gait noted] point tenderness along right SI with positive right Julito's, Ken's, Gaenslen's, compression and distraction exam Neurological: Speech clear, no gross sensory deficit Has patient had previous pain injection?: Yes Percent improvement in pain since last injection: 90 Conservative treatment options previously tried: Home exercise plan Length of treatment: >6 weeks and Prescription medications Length of treatment: >6 weeks Meds Home Medications and Allergies Home Medications Medication Instructions Recorded Confirmed Type aspirin 81 mg tablet,delayed 81 mg PO ONCE heart health 12/27/17 05/07/24 History release (Adult Low Dose Aspirin) coenzyme Q10 10 mg capsule (Co 10 mg PO ONCE Supplement 12/28/17 05/07/24 History Q-10) ondansetron 4 mg disintegrating 4 mg PO Q8H PRN Nausea #20 tabs 07/22/22 05/07/24 Rx tablet tizanidine 4 mg tablet (Zanaflex) 4 mg PO HS muscle spassms 11/28/22 05/07/24 History atorvastatin 80 mg tablet 80 mg PO DAILY Cholesterol #90 tabs 08/02/23 05/07/24 Rx clopidogrel 75 mg tablet 75 mg PO DAILY Blood thinner #90 08/02/23 05/07/24 Rx tabs losartan 50 mg tablet 50 mg PO DAILY BLOOD PRESSURE #90 08/02/23 05/07/24 Rx tabs metoprolol tartrate 25 mg tablet 25 mg PO BID High blood pressure 08/02/23 05/07/24 Rx #180 tabs pantoprazole 40 mg tablet,delayed 40 mg PO DAILY STOMACH #90 tabs 08/02/23 05/07/24 Rx release peg 3350-electrolytes 236 240 ml PO Q10M #4,000 mL 01/10/24 05/07/24 Rx gram-22.74 gram-6.74 gram-5.86 gram solution (GaviLyte-G) ergocalciferol (vitamin D2) 1,250 1 mcg PO DAILY 01/28/24 05/07/24 History mcg (50,000 unit) capsule (Vitamin D2) New Prescriptions to Start Prescriptions: Allergies Allergy/AdvReac Type Severity Reaction Status Date / Time icosapent ethyl AdvReac Intermediate myalgias Verified 02/28/24 10:57 [From Vascepa] spironolactone AdvReac Mild Gynecomasti Verified 02/28/24 10:57 a Assessment and Plan *Assessment and plan (1) Sacroiliitis: Status: Acute Category: Medical Code(s): M46.1 - Sacroiliitis, not elsewhere classified (2) Right hip pain: Status: Acute Category: Medical Code(s): M25.551 - Pain in right hip Plan SignPatient is experiencing significant pain in his low back and right hip with limited range of motion and point tenderness along his right SI. Patient did have a positive Julito's, Ken's, Gaenslen's, compression and distraction exam. Patient has not last had a injection that did provide 80% relief and was given in August 2023 and lasted more than 3 months. I have discussed with the patient that he may benefit from repeat SI injection. Risk and benefits were discussed with the patient and he would like to proceed forward with this plan of care. Patient has continued to try at home exercising and stretching between injections with minimal relief. Will schedule him for a right SI injection under fluoroscopy. Patient has been instructed to contact the clinic with any concerns before the next appointment. Dr. Saavedra has reviewed this note and agrees with this plan of care. This note was dictated using voice recognition software and make contain errors or omissions.
== END 2024-05-07 23:59 | disposition home or self-care (01) ==
LOC: SC.PAIN 10:33
PROVIDERS: PCP Family Medicine; Visit Provider Nurse Practitioner Family
DX: M46.1 Sacroiliitis, not elsewhere classified (principal)
CPT/HCPCS: 99212; G0463

== ENCOUNTER 2024-05-27 10:05 | Day surgery (SDC) | payer BC, SELFPAY ==
[2024-05-27 10:20] VITALS: BP 111/74; PULSE 60; RESP 18; TEMP 36.3; O2SAT 96; BMI 36.5
[2024-05-27] MEDS: methylPREDNISolone ACETATE 80MG/ML VIAL 80 MG (10:25)
[2024-05-27 10:26] VITALS: BP 124/78; PULSE 55; RESP 18; O2SAT 97
[2024-05-27] MEDS: BUPIVACAINE 0.25% 10ML INJ 25 MG IJ (10:26)
[2024-05-27] MEDS: LIDOCAINE 1% 5ML PF VIAL 5 ML (10:26)
[2024-05-27 10:27] VITALS: BP 124/78; PULSE 68; RESP 18; O2SAT 97
[2024-05-27 10:29] VITALS: BP 118/72; PULSE 62; RESP 18
--- NOTE | 2024-05-27 10:55 | EXP.PAIN.PRO ---
Procedure Date: 05/27/24 Time: 10:40 Anesthesiologist:: Venancio Gonzalez CRNA Complications:: None Pre-procedure Diagnosis:: Right sacroiliitis Post-procedure Diagnosis:: Same. Indications for Procedure:: Patient is a pleasant 63-year-old male comes our clinic today for right sacroiliac joint injection cortisone. Patient reports right posterior hip pain as well as right low lumbar back pain that he describes as constant, dull, aching. He rates his pain 7/10. Upon examination patient has extreme point tenderness over the right sacroiliac joint. Procedure Details:: Procedure: Right sacroliliac joint injection under fluoroscopy Informed consent was obtained and the risk and benefits of the procedure were explained to the patient.~ The patient was taken to the procedure room and noninvasive monitors were placed including noninvasive blood pressure cuff and pulse oximeter.~ The patient was placed prone on the procedure table.~ The~ right hip was cleansed using Betadine as a cleansing solution.~ C-arm fluorosocpy was used to view the right SI joint.~ The skin and subcutaneous tissues were anesthetized using Lidocaine 1.5% and a 25-gauge needle.~ After this, a 22-gauge spinal needle was inserted under fluoroscopic guidance into the inferior aspect of the right SI joint.~ Omnipaque dye was injected and a good spread was seen throughout the joint.~ After this, approximately 5 mL of bupivacaine 0.25% and Depo-Medrol 40 mg was incrementally injected into the sacroiliac joint.~ The patient tolerated the procedure well with no complications.~ The patient was observed in the Pain Clinic, then discharged home neurologically intact.~ Plan and Disposition:: Patient was discharged without incident.
== END 2024-05-27 10:30 | disposition home or self-care (01) ==
LOC: SC.PAINP 10:06
PROVIDERS: PCP Family Medicine; Visit Provider Nurse Anesthetist, Certified Registered
DX: M46.1 Sacroiliitis, not elsewhere classified (principal)
CPT/HCPCS: 27096; G0260; J1010

== ENCOUNTER 2024-06-09 09:01 | Outpatient (CLI) | payer BC, SELFPAY ==
[2024-06-09 09:23] LABS: Basophils # 0.1 K/mm3 (0-0.2); Basophils % 1.4 % (0.1-2.0); Eosinophils # 0.1 K/mm3 (0.0-0.4); Eosinophils % 0.7 % (0.1-12.0); Hematocrit 45.7 % (42.0-52.0); Hemoglobin 15.5 g/dL (14.1-18.0); Lymphocytes # 2.6 K/mm3 (0.7-4.5); Lymphocytes % 30.2 % (10-50); Mean Corpuscular Hemoglobin 32.7 pg (27.0-31.2); Mean Corpuscular Volume 96.2 fl (80-94); Mean Platelet Volume 8.4 fl (7.4-10.4); Monocytes # 0.6 K/mm3 (0.1-1.0); Monocytes % 6.8 % (1.7-9.3); Neutrophils # 5.2 K/mm3 (1.8-7.8); Neutrophils % 60.9 % (37.0-80.0); Platelet Count 181 K/mm3 (142-424); Red Blood Count 4.75 M/mm3 (4.60-6.20); Red Cell Distribution Width 14.3 % (11.5-17.5); White Blood Count 8.6 K/mm3 (4.8-10.8)
[2024-06-09 10:05] LABS: Albumin Level 4.4 g/dl (3.5-5.0); Chloride 105 mmol/L (98-107); Potassium 4.2 mmoL/L (3.5-5.1); Sodium 139 mmol/L (136-145)
[2024-06-09 10:07] LABS: Anion Gap 11.2 mEq/L (5-15); Bilirubin,Unconjugated 1.4 mg/dL (0.0-1.1); Blood Urea Nitrogen 16 mg/dl (9-20); Carbon Dioxide 27 mmol/L (22.0-30.0); Estimated Glomerular Filt Rate 76 ml/min (>60); GFR (African American) 92 ML/MIN (>60)
[2024-06-09 10:08] LABS: Alanine Aminotransferase 42 U/L (12-78); Alkaline Phosphatase 85 U/L (38-126); Aspartate Amino Transferase 29 U/L (17-59); Bilirubin,Indirect 1.4 mg/dL (0.0-0.9); Bilirubin,Total 1.4 mg/dl (0.2-1.3); Calcium 9.1 mg/dl (8.4-10.2); Chol/HDL Ratio 3.6 (1-3.5); Cholesterol 135 mg/dl (140-200); Glucose 140 mg/dl (74-100); HDL Cholesterol 37 mg/dl (40-60); Total Protein,Serum 7.1 g/dl (6.3-8.2); Triglycerides 193 mg/dl (30-150); VLDL Cholesterol 39 mg/dL (0-40)
[2024-06-09 10:20] LABS: Direct LDL Cholesterol 67.48 mg/dL (100-129)
[2024-06-09 10:27] LABS: Free T4 (Free Thyroxine) 1.04 ng/dl (0.78-2.19)
[2024-06-09 10:38] LABS: Thyroid Stimulating Hormone 3.19 uIU/mL (0.465-4.68)
[2024-06-09 12:29] LABS: Hemoglobin A1C 6.2 % (4.0-6.0)
== END 2024-06-09 23:59 | disposition home or self-care (01) ==
LOC: LAB 09:02
PROVIDERS: PCP Family Medicine; Visit Provider Physician Assistant
DX: K21.9 Gastro-esophageal reflux disease without esophagitis (principal); R53.83 Other fatigue; Z95.1 Presence of aortocoronary bypass graft; R94.31 Abnormal electrocardiogram [ECG] [EKG]; E78.2 Mixed hyperlipidemia; I10 Essential (primary) hypertension; I25.10 Atherosclerotic heart disease of native coronary artery without angina pectoris; Z95.5 Presence of coronary angioplasty implant and graft; I27.20 Pulmonary hypertension, unspecified; E11.9 Type 2 diabetes mellitus without complications; I11.9 Hypertensive heart disease without heart failure; R06.00 Dyspnea, unspecified
CPT/HCPCS: 36415; 80048; 80061; 80076; 83036; 84439; 84443; 85025

== ENCOUNTER 2024-06-12 13:33 | Outpatient (POV) | payer BC, SELFPAY ==
[2024-06-12 13:56] VITALS: BP 107/70; PULSE 57; RESP 16; O2SAT 96; BMI 35.4
--- NOTE | 2024-06-12 14:21 | A.OFFVIS_ITS ---
[facility] Disclaimer: The information contained in this section may have been updated after the patient was seen, as this information can be updated by other users. Medical History Tinnitus aurium per Audiometric Bilateral otitis externa Chronic eustachian tube dysfunction Impacted cerumen, bilateral Hearing loss Screening for colon cancer Bilateral tinnitus Chest pain Pulmonary HTN Diastolic dysfunction Surgical History Hx of CABG History of cholecystectomy Family History Other Family history of diabetes mellitus type II Social History Smoking Status: Former smoker tobacco type: cigarettes alcohol intake: former substance use type: denies use current occupational status: retired Travel in the last 8 weeks: None household members: spouse and family housing: house current occupational exposures/hazards: No caffeine: Yes PM Subjective & Objective Subjective Subjective:: Patient is a pleasant 63-year-old male who presents today for follow-up of right SI injection 11/27/2023. Today he rates his pain a 2 out of 10. Patient states he has had at least 90% improvement following this procedure and feels like it still helping. Patient states he has been able to increase his activity with overall decreased pain and feels much more functional. Patient does also state that his right shoulder continues to do well from his intra-articular injection back on April 22. His Maik has been reviewed and is appropriate. Review of Systems: General: No recent weight changes, no fever, no sleep disturbances Respiratory: No cough, no shortness of air, no recurring pulmonary infections Cardiovascular/peripheral vascular: No chest pain, no palpitations, no edema, no shortness of breath Gastrointestinal: No new onset incontinence, normal bowel movements reported Genitourinary: No new onset incontinence Musculoskeletal: Low back pain Psychiatric: [Normal mood/affect] Neurological: [Denies weakness in extremities], [denies balance issues] Pain at rest (0-10 scale): 2 Objective Objective:: Physical Exam: General: Alert and oriented x3, no acute distress, pleasant and cooperative Lungs: Respirations even and unlabored, symmetrical chest expansion Eyes: PERRL Musculoskeletal: Flexion and extension of lumbar [spine] somewhat guarded secondary to pain, [antalgic gait noted] Neurological: Speech clear, no gross sensory deficit Has patient had previous pain injection?: Yes Percent improvement in pain since last injection: 90% Conservative treatment options previously tried: Home exercise plan Length of treatment: Longer than 6 weeks Meds Home Medications and Allergies Home Medications ?Medication ?Instructions ?Recorded ?Confirmed ?Type coenzyme Q10 10 mg capsule (Co 10 mg PO ONCE Supplement 12/28/17 06/09/24 History Q-10) ondansetron 4 mg disintegrating 4 mg PO Q8H PRN Nausea #20 tabs 07/22/22 06/09/24 Rx tablet tizanidine 4 mg tablet (Zanaflex) 4 mg PO HS muscle spassms 11/28/22 06/09/24 History ergocalciferol (vitamin D2) 1,250 1 mcg PO DAILY 01/28/24 06/09/24 History mcg (50,000 unit) capsule (Vitamin D2) aspirin 81 mg tablet,delayed 81 mg PO ONCE heart health #90 tabs 06/09/24 06/09/24 Rx release (Adult Low Dose Aspirin) atorvastatin 80 mg tablet 80 mg PO DAILY Cholesterol #90 tabs 06/09/24 06/09/24 Rx clopidogrel 75 mg tablet 75 mg PO DAILY Blood thinner #90 06/09/24 06/09/24 Rx tabs losartan 50 mg tablet 50 mg PO DAILY BLOOD PRESSURE #90 06/09/24 06/09/24 Rx tabs metoprolol tartrate 25 mg tablet 25 mg PO BID High blood pressure 06/09/24 06/09/24 Rx #180 tabs pantoprazole 40 mg tablet,delayed 40 mg PO DAILY STOMACH #90 tabs 06/09/24 06/09/24 Rx release New Prescriptions to Start Prescriptions: Allergies Allergy/AdvReac Type Severity Reaction Status Date / Time icosapent ethyl AdvReac Intermediate myalgias Verified 06/09/24 08:29 [From Vascepa] spironolactone AdvReac Mild Gynecomasti Verified 06/09/24 08:29 a Assessment and Plan *Assessment and plan (1) Degenerative disc disease, lumbar: Status: Acute Category: Medical Code(s): M51.36 - Other intervertebral disc degeneration, lumbar region Plan Patient has had significant improvement following his SI injection and does not require any additional injection therapy. Patient will return to clinic in 2 months for reevaluation of symptoms and plan of care. Patient has been instructed to contact the clinic with any concerns before the next appointment. Dr. Saavedra has reviewed this note and agrees with this plan of care. This note was dictated using voice recognition software and make contain errors or omissions. All injections are used with Lidocaine or Bupivacaine and Depo Medrol.
== END 2024-06-12 23:59 | disposition home or self-care (01) ==
LOC: SC.PAIN 13:34
PROVIDERS: PCP Family Medicine; Visit Provider Nurse Practitioner Family
DX: M51.36 Other intervertebral disc degeneration, lumbar region (principal); Z87.891 Personal history of nicotine dependence; Z79.899 Other long term (current) drug therapy
CPT/HCPCS: 99212; G0463

== ENCOUNTER 2024-06-16 09:05 | Outpatient (CLI) | payer BC, SELFPAY ==
--- NOTE | 2024-06-16 09:06 | CA_ITS ---
APPROVED REPORT EXAM: Comprehensive 2D, Doppler, and color-flow Echocardiogram Public Relations Professional: Christa Pham RDCS Ht: 5 ft 8 in Wt: 233lbs BSA: 2.18 BP: 111/77 mmHg Indications: CAD,CABG,HTN,HLP M-Mode Dimensions RVDd 2.59 cm (0.9-2.6) LA Diam 2.96 cm (1.9-4.0) LVDd 5.18 cm (3.5-5.7) LVDs 3.61 cm (3.5-5.7) IVSd 0.75 cm (0.6-1.1) PWd 0.82 cm (0.6-1.1) EF (Teich) 57.30% FS 30.30% EDV (Teich) 128.40 mL TAPSE 1.26 (<1.7) ESV (Teich) 54.80 mL LV Diastology E Decel Time 183 (160-240 msec) E/A Ratio 1.4 Mitral Valve MV E Max Juan. 68.0 (40-130 cm/s) MV A Velocity 47.0 (40-130 cm/s) E/A Ratio 1.43 MV PHT 54.0 ms Left Ventricle The left ventricle is normal size. The left ventricular systolic function is normal. The left ventricular ejection fraction is within the normal range. Proximal septal thickening is noted. The septum is asynchronous. No regional wall motion abnormalities are noted. The left ventricular diastolic function is normal. LVEF is 55%. Right Ventricle The right ventricle is not very well-visualized, but appears to be at least mildly dilated. RV function cannot be estimated in the study. Atria The left atrium is mildly dilated. The right atrium is mildly dilated. There is no Doppler evidence of interatrial shunt. Aortic Valve The aortic valve opens well. There is no aortic valvular stenosis. No aortic regurgitation is present. Mitral Valve The mitral valve is normal in structure. No evidence of mitral valve stenosis. Trace mitral regurgitation. Tricuspid Valve The tricuspid valve leaflets are thin and pliable. Mild tricuspid regurgitation. RVSP is normal. Pulmonic Valve The pulmonary valve is normal in structure. Mild pulmonic regurgitation. Great Vessels The aortic root is normal in size. The ascending aorta is normal in size. IVC is normal in size and collapses >50% with inspiration. Pericardium There is no pericardial effusion. Other Information Study Quality: Technically Difficult Conclusion Technically difficult study due to poor acoustic windows. Normal LV systolic function. Asynchronous septum. RV not very well-visualized, but appears at least mildly dilated. RV function cannot be estimated. Mild biatrial dilation. Mild PI, mild TR. Electronically signed by : Kamala Loza MD 06/17/2024 00:38:20
== END 2024-06-16 23:59 | disposition home or self-care (01) ==
LOC: RT 09:06
PROVIDERS: PCP Family Medicine; Visit Provider Physician Assistant
DX: I11.9 Hypertensive heart disease without heart failure; I25.10 Atherosclerotic heart disease of native coronary artery without angina pectoris; R94.31 Abnormal electrocardiogram [ECG] [EKG]; I27.20 Pulmonary hypertension, unspecified; Z95.5 Presence of coronary angioplasty implant and graft; Z87.891 Personal history of nicotine dependence
CPT/HCPCS: 93306

== ENCOUNTER 2024-08-25 10:17 | Outpatient (POV) | payer BC, SELFPAY ==
--- NOTE | 2024-08-25 11:17 | EXP.PAIN.SOA ---
[facility] Disclaimer: The information contained in this section may have been updated after the patient was seen, as this information can be updated by other users. Medical History Tinnitus aurium per Audiometric Bilateral otitis externa Chronic eustachian tube dysfunction Impacted cerumen, bilateral Hearing loss Screening for colon cancer Bilateral tinnitus Chest pain Pulmonary HTN Diastolic dysfunction Surgical History Hx of CABG History of cholecystectomy Family History Other Family history of diabetes mellitus type II Social History Smoking Status: Former smoker tobacco type: cigarettes alcohol intake: former substance use type: denies use current occupational status: retired Travel in the last 8 weeks: None household members: spouse and family housing: house current occupational exposures/hazards: No caffeine: Yes PM Subjective & Objective Subjective Subjective:: Patient is a pleasant 63-year-old male who presents today for worsening pain. Patient states his pain level is a 7 out of 10. He states he is having some right shoulder pain however most of his pain is all in his low back and hips/buttocks area. He denies any radiating symptoms into his legs. He describes it as an aching, throbbing sensation that is worse with increased activity as well as prolonged sitting or standing. Patient does state that long car rides seem to aggravate the overall symptoms and it is interfering with his ability perform activities of daily living such as cooking and cleaning. Patient is interested in trying an injection to provide improvement. Patient has tried and failed conservative therapy including oral medications, heat and ice, topicals, exercising and stretching for longer than 6 weeks. His Maik has been reviewed and is appropriate. Review of Systems: General: No recent weight changes, no fever, no sleep disturbances Respiratory: No cough, no shortness of air, no recurring pulmonary infections Cardiovascular/peripheral vascular: No chest pain, no palpitations, no edema, no shortness of breath Gastrointestinal: No new onset incontinence, normal bowel movements reported Genitourinary: No new onset incontinence Musculoskeletal: Low back pain, bilateral hip pain, buttocks pain Psychiatric: [Normal mood/affect] Neurological: [Denies weakness in extremities], [denies balance issues] Pain at rest (0-10 scale): 7 Objective Objective:: Physical Exam: General: Alert and oriented x3, no acute distress, pleasant and cooperative Lungs: Respirations even and unlabored, symmetrical chest expansion Eyes: PERRL Musculoskeletal: Flexion and extension of lumbar [spine] somewhat guarded secondary to pain, [antalgic gait noted] point tenderness along bilateral SIs with positive bilateral Julito's, Ken's, Gaenslen's, compression and distraction exam Neurological: Speech clear, no gross sensory deficit Has patient had previous pain injection?: No Conservative treatment options previously tried: Home exercise plan Length of treatment: Longer than 6 weeks Meds Home Medications and Allergies Home Medications ?Medication ?Instructions ?Recorded ?Confirmed ?Type coenzyme Q10 10 mg capsule (Co 10 mg PO ONCE Supplement 12/28/17 08/25/24 History Q-10) ondansetron 4 mg disintegrating 4 mg PO Q8H PRN Nausea #20 tabs 07/22/22 08/25/24 Rx tablet tizanidine 4 mg tablet (Zanaflex) 4 mg PO HS muscle spassms 11/28/22 08/25/24 History ergocalciferol (vitamin D2) 1,250 1 mcg PO DAILY 01/28/24 08/25/24 History mcg (50,000 unit) capsule (Vitamin D2) aspirin 81 mg tablet,delayed 81 mg PO ONCE heart health #90 tabs 06/09/24 08/25/24 Rx release (Adult Low Dose Aspirin) atorvastatin 80 mg tablet 80 mg PO DAILY Cholesterol #90 tabs 06/09/24 08/25/24 Rx clopidogrel 75 mg tablet 75 mg PO DAILY Blood thinner #90 06/09/24 08/25/24 Rx tabs losartan 50 mg tablet 50 mg PO DAILY BLOOD PRESSURE #90 06/09/24 08/25/24 Rx tabs metoprolol tartrate 25 mg tablet 25 mg PO BID High blood pressure 06/09/24 08/25/24 Rx #180 tabs pantoprazole 40 mg tablet,delayed 40 mg PO DAILY STOMACH #90 tabs 06/09/24 08/25/24 Rx release New Prescriptions to Start Prescriptions: Allergies Allergy/AdvReac Type Severity Reaction Status Date / Time icosapent ethyl AdvReac Intermediate myalgias Verified 07/21/24 10:50 [From Vascepa] spironolactone AdvReac Mild Gynecomasti Verified 07/21/24 10:50 a Assessment and Plan *Assessment and plan (1) Sacroiliitis: Status: Acute Category: Medical Code(s): M46.1 - Sacroiliitis, not elsewhere classified Plan Patient is experiencing worsening pain all across to his low back and buttocks/hip area. Patient did have point tenderness along his bilateral SI's and a positive bilateral Julito's, Ken's, Gaenslen's, compression and distraction exam. I did discuss with the patient that I do believe he would benefit from bilateral SI injections. Risk and benefits were discussed with the patient and he would like to proceed forward with this plan of care. Patient did just have a right SI injection back in May that did provide 90% improvement and has lasted up until the last 6 weeks or so. Patient did have improved function with this injection and would like to proceed forward with repeat injections. Patient has tried and failed conservative therapy including continued at home stretching exercise for longer than 6 weeks. We will schedule the patient for bilateral SI injections under fluoroscopy. Patient has been instructed to contact the clinic with any concerns before the next appointment. Dr. Saavedra has reviewed this note and agrees with this plan of care. This note was dictated using voice recognition software and make contain errors or omissions. All injections are used with Lidocaine or Bupivacaine and Depo Medrol.
== END 2024-08-25 23:59 | disposition home or self-care (01) ==
LOC: SC.PAIN 10:20
PROVIDERS: PCP Family Medicine; Visit Provider Nurse Practitioner Family
DX: M46.1 Sacroiliitis, not elsewhere classified (principal); Z87.891 Personal history of nicotine dependence; Z73.89 Other problems related to life management difficulty
CPT/HCPCS: 99212; G0463

== ENCOUNTER → 2024-09-09 13:33 | Day surgery (SDC) | payer BC, SELFPAY ==
[2024-09-09 13:45] VITALS: BP 110/45; PULSE 84; RESP 16; TEMP 36.3; O2SAT 93; BMI 25.1
[2024-09-09] MEDS: BUPIVACAINE 0.25% 10ML INJ 25 MG IJ (13:49)
[2024-09-09] MEDS: methylPREDNISolone ACETATE 80MG/ML VIAL 80 MG (13:50)
[2024-09-09] MEDS: LIDOCAINE 1% 5ML PF VIAL 5 ML (13:51)
--- NOTE | 2024-09-09 13:52 | P.PCN_ITS ---
Procedure Date: 09/09/24 Time: 13:45 Anesthesiologist:: Venancio Gonzalez CRNA Complications:: None Pre-procedure Diagnosis:: Bilateral sacroiliitis Post-procedure Diagnosis:: Same Indications for Procedure:: Patient is a pleasant 63-year-old male who comes our clinic today for bilateral sacroiliac joint injection of cortisone and local anesthetic. Patient describes low lumbar back pain off the midline bilaterally is constant, dull, aching. He reports having difficulty transitioning from sitting to standing. Also, reports bilateral posterior hip pain. He rates his pain 7/10. Procedure Details:: Procedure: Bilateral sacroiliac joint injections under fluoroscopy Informed consent was obtained and the risks and benefits of the procedure were explained to the patient.~ The patient was taken to the procedure room and noninvasive monitors were placed including a noninvasive blood pressure cuff and pulse oximeter.~ The patient was placed prone on the procedure table. Both hips were cleansed using Betadine as a cleansing solution. C-arm fluoroscopy was used to view the right sacroiliac joint.~ The skin and subcutaneous tissues were anesthetized using lidocaine 1.5% and a 25-gauge needle.~ After this, a 22-gauge spinal needle was inserted under fluoroscopic guidance into the inferior aspect of the right sacroiliac joint.~ Omnipaque dye was injected and good spread was seen throughout the joint.~ After this, approximately 5 mL of bupivacaine, 0.25% and Depo-Medrol, 40 mg was incrementally injected into the right sacroiliac joint. We then moved to the left sacroiliac joint.~ The skin and subcutaneous tissues were anesthetized using lidocaine 1.5% and a 25-gauge needle.~ After this, a 22- gauge spinal needle was inserted under fluoroscopic guidance into the inferior aspect of the left sacroiliac joint.~ Omnipaque dye was injected and good spread was seen throughout the joint. After this, approximately 5 mL of bupivacaine, 0.25% and Depo-Medrol, 40 mg was incrementally injected into the left sacroiliac joint.~ The patient tolerated the procedure well with no complications. The patient was observed in the Pain Clinic and then was discharged home neurologically intact. Plan and Disposition:: Patient was discharged without incident.
[2024-09-09 14:05] VITALS: BP 110/70; PULSE 62; RESP 16; O2SAT 96
== END | disposition home or self-care (01) ==
PROVIDERS: PCP Family Medicine; Visit Provider Nurse Anesthetist, Certified Registered
DX: M46.1 Sacroiliitis, not elsewhere classified (principal)
CPT/HCPCS: 27096; G0260; J1010

== ENCOUNTER 2024-09-24 14:30 | Outpatient (POV) | payer BC, SELFPAY ==
[2024-09-24 14:57] VITALS: BP 99/77; PULSE 66; RESP 14; O2SAT 97; BMI 35.9
--- NOTE | 2024-09-24 15:08 | EXP.PAIN.SOA ---
[facility] Disclaimer: The information contained in this section may have been updated after the patient was seen, as this information can be updated by other users. Medical History Tinnitus aurium per Audiometric Bilateral otitis externa Chronic eustachian tube dysfunction Impacted cerumen, bilateral Hearing loss Screening for colon cancer Bilateral tinnitus Chest pain Pulmonary HTN Diastolic dysfunction Surgical History Hx of CABG History of cholecystectomy Family History Other Family history of diabetes mellitus type II Social History Smoking Status: Former smoker tobacco type: cigarettes alcohol intake: former substance use type: denies use current occupational status: other Travel in the last 8 weeks: None household members: spouse and family housing: house current occupational exposures/hazards: No caffeine: Yes PM Subjective & Objective Subjective Subjective:: Patient is a pleasant 63-year-old male who presents today for follow-up of bilateral SI injections on 09/09/2024. Today he rates his pain a 1 out of 10. Patient denies any new trauma or injury. He does state that he has had at least 90 to 95% improvement and feels like it is still continuing to provide significant relief. Patient does state that he is having a little bit more issues with his right shoulder however feels like overall it is still manageable at this time. 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 Patient does state that the weather generally plays a significant role in the worsening shoulder pain. His Maik has been reviewed and is appropriate. Review of Systems: General: No recent weight changes, no fever, no sleep disturbances Respiratory: No cough, no shortness of air, no recurring pulmonary infections Cardiovascular/peripheral vascular: No chest pain, no palpitations, no edema, no shortness of breath Gastrointestinal: No new onset incontinence, normal bowel movements reported Genitourinary: No new onset incontinence Musculoskeletal: Right shoulder pain Psychiatric: [Normal mood/affect] Neurological: [Denies weakness in extremities], [denies balance issues] Pain at rest (0-10 scale): 1 Objective Objective:: Physical Exam: General: Alert and oriented x3, no acute distress, pleasant and cooperative Lungs: Respirations even and unlabored, symmetrical chest expansion Eyes: PERRL Musculoskeletal: Flexion and extension of right shoulder somewhat guarded secondary to pain, [antalgic gait noted] Neurological: Speech clear, no gross sensory deficit Has patient had previous pain injection?: Yes Percent improvement in pain since last injection: 90 to 95% Conservative treatment options previously tried: Home exercise plan Length of treatment: Longer than 12-week Meds Home Medications and Allergies Home Medications ?Medication ?Instructions ?Recorded ?Confirmed ?Type coenzyme Q10 10 mg capsule (Co 10 mg PO ONCE Supplement 12/28/17 09/24/24 History Q-10) ondansetron 4 mg disintegrating 4 mg PO Q8H PRN Nausea #20 tabs 07/22/22 09/24/24 Rx tablet tizanidine 4 mg tablet (Zanaflex) 4 mg PO HS muscle spassms 11/28/22 09/24/24 History ergocalciferol (vitamin D2) 1,250 1 mcg PO DAILY 01/28/24 09/24/24 History mcg (50,000 unit) capsule (Vitamin D2) aspirin 81 mg tablet,delayed 81 mg PO ONCE heart health #90 tabs 06/09/24 09/24/24 Rx release (Adult Low Dose Aspirin) atorvastatin 80 mg tablet 80 mg PO DAILY Cholesterol #90 tabs 06/09/24 09/24/24 Rx clopidogrel 75 mg tablet 75 mg PO DAILY Blood thinner #90 06/09/24 09/24/24 Rx tabs losartan 50 mg tablet 50 mg PO DAILY BLOOD PRESSURE #90 06/09/24 09/24/24 Rx tabs metoprolol tartrate 25 mg tablet 25 mg PO BID High blood pressure 06/09/24 09/24/24 Rx #180 tabs pantoprazole 40 mg tablet,delayed 40 mg PO DAILY STOMACH #90 tabs 06/09/24 09/24/24 Rx release New Prescriptions to Start Prescriptions: Allergies Allergy/AdvReac Type Severity Reaction Status Date / Time icosapent ethyl (From AdvReac Intermediate myalgias Verified 07/21/24 10:50 Vascepa) spironolactone AdvReac Mild Gynecomasti Verified 07/21/24 10:50 a Assessment and Plan *Assessment and plan (1) Right rotator cuff tear: Status: Acute Category: Medical Code(s): M75.101 - Unspecified rotator cuff tear or rupture of right shoulder, not specified as traumatic (2) Right shoulder pain: Status: Acute Category: Medical Code(s): M25.511 - Pain in right shoulder Plan Patient has had significant improvement following his SI injections and does not require any additional injection therapy at this time. Patient will return to clinic in 1 month for reevaluation of symptoms and plan of care. Patient has been instructed to contact the clinic with any concerns before the next appointment. Dr. Saavedra has reviewed this note and agrees with this plan of care. This note was dictated using voice recognition software and make contain errors or omissions. All injections are used with Lidocaine or Bupivacaine and Depo Medrol.
== END 2024-09-24 23:59 | disposition home or self-care (01) ==
LOC: SC.PAIN 14:30
PROVIDERS: PCP Family Medicine; Visit Provider Nurse Practitioner Family
DX: M75.101 Unspecified rotator cuff tear or rupture of right shoulder, not specified as traumatic (principal); M25.511 Pain in right shoulder; Z87.891 Personal history of nicotine dependence
CPT/HCPCS: 99212; G0463

== ENCOUNTER 2024-10-23 13:41 | Outpatient (POV) | payer BC, SELFPAY ==
[2024-10-23 14:40] VITALS: BP 136/64; PULSE 55; RESP 18; O2SAT 93; BMI 36.5
--- NOTE | 2024-10-23 14:52 | A.OFFVIS_ITS ---
[facility] Disclaimer: The information contained in this section may have been updated after the patient was seen, as this information can be updated by other users. Medical History Tinnitus aurium per Audiometric Bilateral otitis externa Chronic eustachian tube dysfunction Impacted cerumen, bilateral Hearing loss Screening for colon cancer Bilateral tinnitus Chest pain Pulmonary HTN Diastolic dysfunction Surgical History Hx of CABG History of cholecystectomy Family History Other Family history of diabetes mellitus type II Social History Smoking Status: Former smoker tobacco type: cigarettes alcohol intake: former substance use type: denies use current occupational status: other Travel in the last 8 weeks: None household members: spouse and family housing: house current occupational exposures/hazards: No caffeine: Yes PM Subjective & Objective Subjective Subjective:: Patient is a pleasant 63-year-old male who presents today for worsening pain in his low back and hips. He describes his pain as an aching, throbbing sensation with a lot of pressure. He does rated the pain a 5 out of 10 currently. 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 He states that it is fairly constant and that it is affecting his ability perform activities of daily living such as cooking and cleaning and also affecting his sleep. Patient states it is very hard to get comfortable due to the worsening pain and that it is very limiting. Patient states that he has had longstanding back issues that is always been made worse with certain positions such as bending, twisting or lifting. Patient is interested in injection therapy. His Maik has been reviewed and is appropriate. Review of Systems: General: No recent weight changes, no fever, no sleep disturbances Respiratory: No cough, no shortness of air, no recurring pulmonary infections Cardiovascular/peripheral vascular: No chest pain, no palpitations, no edema, no shortness of breath Gastrointestinal: No new onset incontinence, normal bowel movements reported Genitourinary: No new onset incontinence Musculoskeletal: Low back pain, bilateral hip pain Psychiatric: [Normal mood/affect] Neurological: [Denies weakness in extremities], [denies balance issues] Pain at rest (0-10 scale): 5 Objective Objective:: Physical Exam: General: Alert and oriented x3, no acute distress, pleasant and cooperative Lungs: Respirations even and unlabored, symmetrical chest expansion Eyes: PERRL Musculoskeletal: Flexion and extension of lumbar [spine] somewhat guarded secondary to pain, [antalgic gait noted] positive Kemps test Neurological: Speech clear, no gross sensory deficit Has patient had previous pain injection?: No Conservative treatment options previously tried: Home exercise plan Length of treatment: Longer than 12 weeks Meds Home Medications and Allergies Home Medications ?Medication ?Instructions ?Recorded ?Confirmed ?Type coenzyme Q10 10 mg capsule (Co 10 mg PO ONCE Supplement 12/28/17 09/24/24 History Q-10) ondansetron 4 mg disintegrating 4 mg PO Q8H PRN Nausea #20 tabs 07/22/22 09/24/24 Rx tablet tizanidine 4 mg tablet (Zanaflex) 4 mg PO HS muscle spassms 11/28/22 09/24/24 History ergocalciferol (vitamin D2) 1,250 1 mcg PO DAILY 01/28/24 09/24/24 History mcg (50,000 unit) capsule (Vitamin D2) aspirin 81 mg tablet,delayed 81 mg PO ONCE heart health #90 tabs 06/09/24 09/24/24 Rx release (Adult Low Dose Aspirin) atorvastatin 80 mg tablet 80 mg PO DAILY Cholesterol #90 tabs 06/09/24 09/24/24 Rx clopidogrel 75 mg tablet 75 mg PO DAILY Blood thinner #90 06/09/24 09/24/24 Rx tabs losartan 50 mg tablet 50 mg PO DAILY BLOOD PRESSURE #90 06/09/24 09/24/24 Rx tabs metoprolol tartrate 25 mg tablet 25 mg PO BID High blood pressure 06/09/24 09/24/24 Rx #180 tabs pantoprazole 40 mg tablet,delayed 40 mg PO DAILY STOMACH #90 tabs 06/09/24 09/24/24 Rx release New Prescriptions to Start Prescriptions: Allergies Allergy/AdvReac Type Severity Reaction Status Date / Time icosapent ethyl (From AdvReac Intermediate myalgias Verified 07/21/24 10:50 Vascepa) spironolactone AdvReac Mild Gynecomasti Verified 07/21/24 10:50 a Assessment and Plan *Assessment and plan (1) Degenerative disc disease, lumbar: Status: Acute Category: Medical Code(s): M51.369 - Other intervertebral disc degeneration, lumbar region without mention of lumbar back pain or lower extremity pain (2) Bilateral hip pain: Status: Acute Category: Medical Code(s): M25.551 - Pain in right hip; M25.552 - Pain in left hip (3) Lumbar facet arthropathy: Status: Acute Category: Medical Code(s): M47.816 - Spondylosis without myelopathy or radiculopathy, lumbar region Plan Patient is experiencing worsening pain in his low back and hips with limited range of motion and a positive Kemps test. I did discuss with the patient that I do believe he would benefit from lumbar medial branch block. Risk and benefits were discussed with the patient and he would like to proceed forward with this plan of care. Patient has longstanding back pain that is going on for years and progressively worsened. Patient does have lumbar facet arthropathy present in his lower lumbar spine from previous imaging. Patient has tried and failed conservative therapy including oral medications, heat and ice, topicals, physical therapy, at home stretching exercise for longer than 12 weeks. Patient will be scheduled for his first lumbar medial branch block bilaterally L4-L5 and L5-S1 under fluoroscopy. If he does get significant relief we will plan on repeating this injection with the plan to proceed forward with an RFA at a later date. I will also send in a 2-week supply of tizanidine 2 mg at bedtime. Patient has been instructed to contact the clinic with any concerns before the next appointment. Dr. Saavedra has reviewed this note and agrees with this plan of care. This note was dictated using voice recognition software and make contain errors or omissions. All injections are used with Lidocaine, Bupivacaine and Depo Medrol. Occasionally urine drug screen is needed to verify patient's compliance with our office pain contract. This is ordered based off specific treatments related to chronic pain with the potential to abuse certain medications.
== END 2024-10-23 23:59 | disposition home or self-care (01) ==
PROVIDERS: PCP Family Medicine; Visit Provider Nurse Practitioner Family
DX: M51.369 Other intervertebral disc degeneration, lumbar region without mention of lumbar back pain or lower extremity pain (principal); M25.551 Pain in right hip; M25.552 Pain in left hip; M47.816 Spondylosis without myelopathy or radiculopathy, lumbar region; Z95.1 Presence of aortocoronary bypass graft; Z87.891 Personal history of nicotine dependence; Z73.89 Other problems related to life management difficulty
CPT/HCPCS: 99212; G0463

== ENCOUNTER → 2024-12-02 11:59 | Day surgery (SDC) | payer BC, SELFPAY ==
[2024-12-02 12:30] VITALS: BP 134/68; PULSE 67; RESP 16; O2SAT 96; BMI 31.6
--- NOTE | 2024-12-02 12:45 | P.PCN_ITS ---
Procedure Date: 12/02/24 Time: 12:25 Anesthesiologist:: Venancio Gonzalez CRNA Complications:: None Pre-procedure Diagnosis:: Degenerative disc lumbar spine multilevels. Lumbar radiculopathy. Lumbar spondylosis. Multilevel lumbar facet arthropathy Post-procedure Diagnosis:: Same Indications for Procedure:: Patient is a pleasant 63-year-old male who comes our clinic today for ROUND ONE lumbar medial branch blocks/facet injections at the L4-5 and L5-S1 levels bilaterally. Patient describes low lumbar back pain as constant, dull, aching. Patient reports having difficulty with lumbar flexion, extension, left and right rotation. He rates his pain 6/10. He reports having difficulty standing. Difficulty with ambulation due to intense low lumbar back pain. Procedure Details:: Informed consent was obtained and the risk and benefits of the procedure was explained to the patient. Patient was taken to the procedure room where noninvasive monitors were placed, including noninvasive blood pressure cuff as well as pulse oximeter. The area over the lumbar spine was cleansed using chlorhexidine as a cleansing solution. I anesthetized the skin and subcutaneous tissues with 1% Lidocaine. I placed 22-gauge spinal needles into the facet malathi int/ medial branches of L4-L5, and L5-S1] bilaterally. Needle placement was confirmed with fluoroscopy. After confirmation of needle placement, each site was injected with 1 mL of 1% lidocaine and 0.25 % Marcaine and 10 mg of Depo- Medrol. A total of 80 mg of depo medrol was used for bilateral medial branch blocks of L4-L5, and L5-S1] bilaterally. Patient tolerated the procedure without difficulty. There were no complications. Plan and Disposition:: Patient was discharged without incident.
[2024-12-02 12:46] VITALS: BP 119/69; PULSE 67; RESP 18; O2SAT 97
[2024-12-02 13:09] VITALS: BP 133/82; PULSE 56; RESP 18; O2SAT 95
[2024-12-02] MEDS: methylPREDNISolone ACETATE 80MG/ML VIAL 80 MG (13:09)
[2024-12-02] MEDS: BUPIVACAINE 0.25% 10ML INJ 25 MG IJ (13:09)
[2024-12-02] MEDS: LIDOCAINE 1% 5ML PF VIAL 5 ML (13:09)
[2024-12-02 13:13] VITALS: BP 133/82; PULSE 56; RESP 18; O2SAT 95
== END | disposition home or self-care (01) ==
PROVIDERS: PCP Family Medicine; Visit Provider Nurse Anesthetist, Certified Registered
DX: M47.816 Spondylosis without myelopathy or radiculopathy, lumbar region (principal); M51.369 Other intervertebral disc degeneration, lumbar region without mention of lumbar back pain or lower extremity pain
CPT/HCPCS: 64493; 64494; J1010

== ENCOUNTER 2024-12-17 14:39 | Outpatient (POV) | payer BC, SELFPAY ==
--- NOTE | 2024-12-17 14:54 | A.OFFVIS_ITS ---
[facility] Disclaimer: The information contained in this section may have been updated after the patient was seen, as this information can be updated by other users. Medical History Tinnitus aurium per Audiometric Bilateral otitis externa Chronic eustachian tube dysfunction Impacted cerumen, bilateral Hearing loss Screening for colon cancer Bilateral tinnitus Chest pain Pulmonary HTN Diastolic dysfunction Surgical History Hx of CABG History of cholecystectomy Family History Other Family history of diabetes mellitus type II Social History Smoking Status: Former smoker tobacco type: cigarettes alcohol intake: former substance use type: denies use current occupational status: other Travel in the last 8 weeks: None household members: spouse and family housing: house current occupational exposures/hazards: No caffeine: Yes PM Subjective & Objective Subjective Subjective:: Patient is a pleasant 63-year-old male who presents today for follow-up of his first lumbar medial branch block bilaterally L4-L5 and L5-S1 on 12/02/2024. Today he rates his pain a 2 out of 10. He denies any new trauma or injury. He does state that he has had approximately 95-98 percent improvement following this injection. He states that overall his back is doing wonderful and is much more functional with decreased pain. He does state however that he is having worsening pain in his right shoulder and rates that pain a 9 out of 10. He states it is still that same achy, throbbing sensation with limited range of mo tion. He does state that he feels like the last injection into this joint has officially worn off. Patient states the pain is now interfering with his ability to perform activities of daily living such as cooking and cleaning. Patient would like to get scheduled for an injection for this joint pain. Patient does also state that the tizanidine 2 mg at bedtime did help significantly and would like additional refills. His Maik has been reviewed and is appropriate. Review of Systems: General: No recent weight changes, no fever, no sleep disturbances Respiratory: No cough, no shortness of air, no recurring pulmonary infections Cardiovascular/peripheral vascular: No chest pain, no palpitations, no edema, no shortness of breath Gastrointestinal: No new onset incontinence, normal bowel movements reported Genitourinary: No new onset incontinence Musculoskeletal: Right shoulder pain Psychiatric: [Normal mood/affect] Neurological: [Denies weakness in extremities], [denies balance issues] Pain at rest (0-10 scale): 9 Objective Objective:: Physical Exam: General: Alert and oriented x3, no acute distress, pleasant and cooperative Lungs: Respirations even and unlabored, symmetrical chest expansion Eyes: PERRL Musculoskeletal: Flexion and extension of right shoulder somewhat guarded secon linn to pain, [antalgic gait noted] Neurological: Speech clear, no gross sensory deficit Has patient had previous pain injection?: Yes Percent improvement in pain since last injection: 95 to 98% Conservative treatment options previously tried: Home exercise plan Length of treatment: Longer than 12 weeks Meds Home Medications and Allergies Home Medications ?Medication ?Instructions ?Recorded ?Confirmed ?Type coenzyme Q10 10 mg capsule (Co 10 mg PO ONCE Supplement 12/28/17 12/17/24 History Q-10) ondansetron 4 mg disintegrating 4 mg PO Q8H PRN Nausea #20 tabs 07/22/22 12/17/24 Rx tablet tizanidine 4 mg tablet (Zanaflex) 4 mg PO HS muscle spassms 11/28/22 12/17/24 History ergocalciferol (vitamin D2) 1,250 1 mcg PO DAILY 01/28/24 12/17/24 History mcg (50,000 unit) capsule (Vitamin D2) aspirin 81 mg tablet,delayed 81 mg PO ONCE heart health #90 tabs 06/09/24 12/17/24 Rx release (Adult Low Dose Aspirin) atorvastatin 80 mg tablet 80 mg PO DAILY Cholesterol #90 tabs 06/09/24 12/17/24 Rx clopidogrel 75 mg tablet 75 mg PO DAILY Blood thinner #90 06/09/24 12/17/24 Rx tabs losartan 50 mg tablet 50 mg PO DAILY BLOOD PRESSURE #90 06/09/24 12/17/24 Rx tabs metoprolol tartrate 25 mg tablet 25 mg PO BID High blood pressure 06/09/24 12/17/24 Rx #180 tabs pantoprazole 40 mg tablet,delayed 40 mg PO DAILY STOMACH #90 tabs 06/09/24 12/17/24 Rx release tizanidine 2 mg tablet 2 mg PO HS #14 tabs 10/23/24 12/17/24 Rx New Prescriptions to Start Prescriptions: Allergies Allergy/AdvReac Type Severity Reaction Status Date / Time icosapent ethyl (From AdvReac Intermediate myalgias Verified 07/21/24 10:50 Vascepa) spironolactone AdvReac Mild Gynecomasti Verified 07/21/24 10:50 a Assessment and Plan *Assessment and plan (1) Right rotator cuff tear: Status: Acute Category: Medical Code(s): M75.101 - Unspecified rotator cuff tear or rupture of right shoulder, not specified as traumatic (2) Right shoulder pain: Status: Acute Category: Medical Code(s): M25.511 - Pain in right shoulder Plan Patient has had significant improvement following his lumbar medial branch block and does not require any additional injections at this location currently. He is having worsening pain in his right shoulder with limited range of motion. Patient does have longstanding right shoulder pain and a right rotator cuff tear that is been going on for longer than a year or more. Patient does get routine injections into this joint with his last 1 in April 2024 that did provide 80 to 90% improvement and has lasted up until the last month. I did review over risk and benefits and he would like to get scheduled for repeat injection. Patient has continued conservative treatment including at home stretching exercise for longer than 12 weeks between injections that was physician guided. I will refill the patient's tizanidine and provide a 3-month supply. Patient will be scheduled for right shoulder intra-articular injection without fluoroscopic or ultrasound guidance. Patient has been instructed to contact the clinic with any concerns before the next appointment. Dr. Saavedra has reviewed this note and agrees with this plan of care. This note was dictated using voice recognition software and make contain errors or omissions. All injections are used with Lidocaine, Bupivacaine and Depo Medrol. Occasionally urine drug screen is needed to verify patient's compliance with our office pain contract. This is ordered based off specific treatments related to chronic pain with the potential to abuse certain medications.
[2024-12-17 15:00] VITALS: BP 118/70; PULSE 63; RESP 14; O2SAT 93; BMI 36.5
[2024-12-17 15:19] VITALS: BP 118/70; PULSE 63; RESP 14; O2SAT 93; BMI 36.5
== END 2024-12-17 23:59 | disposition home or self-care (01) ==
PROVIDERS: PCP Family Medicine; Visit Provider Nurse Practitioner Family
DX: M75.101 Unspecified rotator cuff tear or rupture of right shoulder, not specified as traumatic (principal); M25.511 Pain in right shoulder; Z87.891 Personal history of nicotine dependence; Z73.89 Other problems related to life management difficulty
CPT/HCPCS: 99212; G0463

== ENCOUNTER 2025-01-06 13:04 | Day surgery (SDC) | payer BC, SELFPAY ==
[2025-01-06 13:10] VITALS: BP 126/60; PULSE 60; RESP 16; TEMP 36.6; O2SAT 96; BMI 36.5
[2025-01-06 13:12] VITALS: BP 154/70; PULSE 59; RESP 18; O2SAT 95
[2025-01-06] MEDS: methylPREDNISolone ACETATE 80MG/ML VIAL 80 MG (13:12)
[2025-01-06] MEDS: LIDOCAINE 1% 5ML PF VIAL 5 ML (13:12)
[2025-01-06] MEDS: BUPIVACAINE 0.25% 10ML INJ 25 MG IJ (13:13)
--- NOTE | 2025-01-06 13:21 | EXP.PAIN.PRO ---
Procedure Date: 01/06/25 Time: 13:00 Anesthesiologist:: Venancio Gonzalez CRNA Complications:: None Pre-procedure Diagnosis:: DJD right shoulder. Chronic right shoulder pain. Post-procedure Diagnosis:: Same Indications for Procedure:: Patient is a very pleasant 64-year-old male who comes our clinic today for intra-articular right shoulder injection. Patient describes right shoulder pain as constant, dull, aching. He has 5/5 strength in the right arm. However, limited range of motion secondary to right shoulder pain. He rates his pain 5/10. Procedure Details:: Procedure Details: Right shoulder intra-articular injection Informed consent was obtained risk and benefits of the procedure were explained to the patient. Patient was taken to the procedure room. The right shoulder was prepped using ChloraPrep. A 25-gauge needle was used posteriorly to inject 10 mL bupivacaine 0.25% and Depo-Medrol 40 mg. Patient tolerated procedure well with no complications. Plan and Disposition:: Patient was discharged without incident.
[2025-01-06 13:25] VITALS: BP 130/78; PULSE 68; RESP 16; O2SAT 91
== END 2025-01-06 13:25 | disposition home or self-care (01) ==
PROVIDERS: PCP Family Medicine; Visit Provider Nurse Anesthetist, Certified Registered
DX: M19.011 Primary osteoarthritis, right shoulder (principal); M25.511 Pain in right shoulder; G89.29 Other chronic pain
CPT/HCPCS: 20610; J1010

== ENCOUNTER 2025-01-15 10:38 | Outpatient (CLI) | payer BC, SELFPAY ==
[2025-01-15 11:36] LABS: Basophils # 0.1 K/mm3 (0-0.2); Basophils % 0.8 % (0.1-2.0); Eosinophils % 0.7 % (0.1-12.0); Lymphocytes # 1.7 K/mm3 (0.7-4.5); Lymphocytes % 29.3 % (10-50); Mean Corpuscular HGB Conc 34.9 g/dL (31.8-35.4); Mean Corpuscular Hemoglobin 31.9 pg (27.0-31.2); Mean Corpuscular Volume 91.5 fl (80-94); Mean Platelet Volume 9.5 fl (7.4-10.4); Monocytes # 0.6 K/mm3 (0.1-1.0); Monocytes % 9.7 % (1.7-9.3); Neutrophils # 3.5 K/mm3 (1.8-7.8); Platelet Count 154 K/mm3 (142-424); White Blood Count 5.9 K/mm3 (4.8-10.8)
[2025-01-15 11:59] LABS: Albumin Level 5.1 g/dl (3.5-5.0); Chloride 104 mmol/L (98-107); Potassium 4.5 mmoL/L (3.5-5.1); Sodium 142 mmol/L (136-145)
[2025-01-15 12:01] LABS: Blood Urea Nitrogen 10 mg/dl (9-20); Estimated Glomerular Filt Rate 85 ml/min (>60); GFR (African American) 103 ML/MIN (>60)
[2025-01-15 12:02] LABS: Alanine Aminotransferase 48 U/L (12-78); Alkaline Phosphatase 78 U/L (38-126); Anion Gap 13.5 mEq/L (5-15); Aspartate Amino Transferase 40 U/L (17-59); Bilirubin,Direct 0.2 mg/dl (0.0-0.4); Bilirubin,Indirect 1.6 mg/dL (0.0-0.9); Bilirubin,Total 1.8 mg/dl (0.2-1.3); Bilirubin,Unconjugated 1.6 mg/dL (0.0-1.1); Calcium 9.5 mg/dl (8.4-10.2); Carbon Dioxide 29 mmol/L (22.0-30.0); Cholesterol 124 mg/dl (140-200); Glucose 152 mg/dl (74-100); Total Protein,Serum 7.5 g/dl (6.3-8.2); Triglycerides 194 mg/dl (30-150); VLDL Cholesterol 39 mg/dL (0-40)
[2025-01-15 12:03] LABS: HDL Cholesterol 31 mg/dl (40-60); Magnesium 1.8 mg/dl (1.6-2.3)
[2025-01-15 12:13] LABS: Direct LDL Cholesterol 63.36 mg/dL (100-129)
[2025-01-15 12:20] LABS: Free T4 (Free Thyroxine) 1.02 ng/dl (0.78-2.19)
== END 2025-01-15 23:59 | disposition home or self-care (01) ==
LOC: LAB 10:38
PROVIDERS: PCP Family Medicine; Visit Provider Physician Assistant
DX: R53.83 Other fatigue (principal); R73.03 Prediabetes; E78.2 Mixed hyperlipidemia; I10 Essential (primary) hypertension; I25.10 Atherosclerotic heart disease of native coronary artery without angina pectoris
CPT/HCPCS: 36415; 80048; 80061; 80076; 83735; 84439; 84443; 85025

== ENCOUNTER 2025-02-05 10:04 | Outpatient (CLI) | payer BC, SELFPAY ==
--- NOTE | 2025-02-05 10:07 | US_ITS ---
FINAL REPORT CLINICAL HISTORY: CAD, Ex-smoker, Claudication, HTN FINDINGS: ANKLE-BRACHIAL PRESSURE INDICES Pressure indices are as follows: RIGHT LOWER EXTREMITY: Ankle-brachial pressure index: 1.25 Comments: Normal LEFT LOWER EXTREMITY: Ankle-brachial pressure index: 1.27 Comments: Normal IMPRESSION: No evidence of significant obstructive peripheral vascular disease of the lower extremities Reviewed, Interpreted and Dictated by Lauren Cárdenas MD Transcribed by Dolores Cabezas Authenticated and [facility]
== END 2025-02-05 23:59 | disposition home or self-care (01) ==
LOC: RT 10:04
PROVIDERS: PCP Family Medicine; Visit Provider Physician Assistant
DX: I73.9 Peripheral vascular disease, unspecified (principal)
CPT/HCPCS: 93923

== ENCOUNTER 2025-08-19 09:25 | Outpatient (CLI) | payer BC, SELFPAY ==
[2025-08-19 09:51] LABS: Hematocrit 41.2 % (42.0-52.0); Hemoglobin 14.2 g/dL (14.1-18.0); Immature Granulocytes % 0.2 %; Mean Corpuscular HGB Conc 34.5 g/dL (31.8-35.4); Mean Corpuscular Hemoglobin 31.3 pg (27.0-31.2); Mean Corpuscular Volume 90.9 fl (80-94); Nucleated Red Blood Cells % 0 %; Platelet Count 153 K/mm3 (142-424); Red Blood Count 4.53 M/mm3 (4.60-6.20); Red Cell Distribution Width-SD 43.0 fL; White Blood Count 5.6 K/mm3 (4.8-10.8)
[2025-08-19 11:20] LABS: Albumin Level 4.3 g/dl (3.5-5.0); Chloride 100 mmol/L (98-107); Potassium 3.7 mmoL/L (3.5-5.1); Sodium 140 mmol/L (136-145)
[2025-08-19 11:23] LABS: Alanine Aminotransferase 31 U/L (12-78); Alkaline Phosphatase 93 U/L (38-126); Anion Gap 13.7 mEq/L (5-15); Aspartate Amino Transferase 25 U/L (17-59); Bilirubin,Direct 0.2 mg/dl (0.0-0.4); Bilirubin,Indirect 1.3 mg/dL (0.0-0.9); Bilirubin,Total 1.5 mg/dl (0.2-1.3); Bilirubin,Unconjugated 1.3 mg/dL (0.0-1.1); Calcium 8.9 mg/dl (8.4-10.2); Carbon Dioxide 30 mmol/L (22.0-30.0); Cholesterol 129 mg/dl (140-200); Glucose 154 mg/dl (74-100); Total Protein,Serum 7.1 g/dl (6.3-8.2); Triglycerides 280 mg/dl (30-150)
[2025-08-19 11:24] LABS: HDL Cholesterol 30 mg/dl (40-60); Magnesium 1.8 mg/dl (1.6-2.3)
[2025-08-19 11:44] LABS: Free T4 (Free Thyroxine) 1.05 ng/dl (0.78-2.19)
[2025-08-19 11:59] LABS: Thyroid Stimulating Hormone 2.10 uIU/mL (0.465-4.68)
[2025-08-19 12:46] LABS: Blood Urea Nitrogen 14 mg/dl (9-20); Creatinine,Serum 0.90 mg/dl (0.66-1.25); Estimated Glomerular Filt Rate 85 ml/min (>60); GFR (African American) 103 ML/MIN (>60)
== END 2025-08-19 23:59 | disposition home or self-care (01) ==
LOC: LAB 09:25
PROVIDERS: PCP Family Medicine; Visit Provider Physician Assistant
DX: I25.10 Atherosclerotic heart disease of native coronary artery without angina pectoris (principal); E78.5 Hyperlipidemia, unspecified; I10 Essential (primary) hypertension
CPT/HCPCS: 36415; 80048; 80061; 80076; 83735; 84439; 84443; 85025

== ENCOUNTER 2025-08-27 09:34 | Outpatient (CLI) | payer BC, SELFPAY ==
--- NOTE | 2025-08-27 09:36 | US_ITS ---
FINAL REPORT TECHNIQUE: Sonographic images of the abdomen were obtained in all four quadrants. CLINICAL HISTORY: ELEVATED LIVER ENZYMES, DIARRHEA FINDINGS: LIVER: Fatty infiltrated. No focal hepatic lesion or intrahepatic biliary dilatation. GALLBLADDER: Gallbladder is absent. The common duct measures 6 mm. This is within normal limits for age. PANCREAS: Obscured RIGHT KIDNEY: 11.9 cm. No hydronephrosis, mass or stone. LEFT KIDNEY: 10.0 cm. No hydronephrosis, mass or stone. SPLEEN: 12.5 cm. No focal splenic lesion. AORTA/IVC: No abdominal aortic aneurysm. Visualized IVC within normal limits. OTHER: No ascites. IMPRESSION: Fatty liver. Reviewed, Interpreted and Dictated by Lauren Cárdenas MD Transcribed by Dolores Cabezas Authenticated and [facility]
--- OUTSIDE RECORDS SUMMARY | 2025-08-27 09:44 | XMS_ITS | Clinical Summary ---
Author Organization Healthcare Address [address] [place] [address] Care Team Providers Care Sealer Sander Name Role Phone Wilfred Win MD Primary Care Provider [phone] Family History Medical History Relation Name Comments Conversions - Other Brother 1 CAD (cor onary artery disease), [place] coronary artery Heart attack Brother 2 Conversions - Other Father CAD (cor onary artery disease), [place] coronary artery Dementia Mother Relation Name Status Comments Brother 1 Brother 2 Father Mother Social History Tobacco Use Types Packs/Day Years Used Date Smoking Tobacco: Former Alcohol Use Standard Drinks/Week Comments No 0 (1 standard drink = 0.6 oz pur e alcohol) Sex and Gender Information Value Date Recorded Sex Assigned at Not on file Legal Sex Male 8:02 PM EDT Gender Identity Not on file Sexual Orientation Not on file Last Filed Vital Signs Vital Sign Reading Time Taken Comments Blood Pressure 112/74 11/18/2020 3:19 PM EST Pulse 87 11/18/2020 3:19 PM EST Temperature - - Respiratory Rate - - Oxygen Saturation - - Inhaled Oxygen Concentration - - Weight 105 kg (231 lb) 11/18/2020 3:19 PM EST Height 175.3 cm (5' 9 ) 11/18/2020 3:19 PM EST Body Mass Index 34.11 11/18/2020 3:19 PM EST Plan of Treatment Not on file Care Teams Sealer Sander Relationship Specialty Start Date End Date Wilfred Win MD [address] [facility] [address] [place] [address] PCP - General 03/25/21
--- OUTSIDE RECORDS SUMMARY | 2025-08-27 09:44 | XMS_ITS | Clinical Summary ---
Author Organization [facility] Address [address] [place] [address] Care Team Providers Care Custom Bike Builder Name Role Phone Philipp Schwarz MD Primary Care Provider + Allergies No known active allergies Medications atorvastatin (LIPITOR) 80 MG tablet 04/29/2021 Active clopidogrel (PLAVIX) 75 MG tablet 04/07/2021 Active losartan (COZAAR) 50 MG tablet 04/07/2021 Active metoprolol tartrate (LOPRESSOR) 25 MG tablet 03/30/2021 Active pantoprazole (PROTONIX) 40 MG EC tablet 05/05/2021 Active Active Problems No known active problems Family History Medical History Relation Name Comments Diabetes Brother Heart disease Brother Hypertension Brother Heart disease Father Hypertension Father Cancer Maternal Grandfather Arthritis Mother Asthma Mother Gout Mother Diabetes Sister Relation Name Status Comments Brother Father Maternal Grandfather Mother Sister Social History Tobacco Use Types Packs/Day Years Used Date Smoking Tobacco: Former Smokeless Tobacco: Never Alcohol Use Standard Drinks/Week Comments Not Currently 0 (1 standard drink = 0.6 oz pur e alcohol) Abuse Screen Answer Date Recorded Unsafe at Home or Work/School Not on file Feels Threatened by Someone? Not on file Does Anyone Keep You from Co ntacting Others or Doint Things Outside the Home? Not on file 08/24/2023 Physical Sign of Abuse Present Not on file 1 Housing Stability Answer Date Recorded Current Living Arrangements Not on file 08/12 Potentially Unsafe Housing Conditions Not on nicholas e 08/24/2023 Family and Community Support Answer Jez e Recorded Help with Day-to-Day Activities Not on file 08/24/2023 Lonely or Isolated Not on file 08/24/2023 Employment Answer Date Recorded Do you want help finding or keeping work or a malathi b? Not on file 08/24/2023 Disabilities Answer Date Recorded Concentrating, Remembering, or Making Decisions Difficulty Not on file 08/24/2023 Doing Errands Independently Difficulty Not on fi le 08/24/2023 Education Answer Date Recorded Help with school or training? Not on file Preferred Language Not on file 08/24/2023 Sex and Gender Information Value Date Recorded Sex Assigned at Not on file Legal Sex Male 10:58 AM EDT Gender Identity Not on file Sexual Orientation Not on file Last Filed Vital Signs Vital Sign Reading Time Taken Comments Blood Pressure 112/70 07/06/2021 1:23 PM EDT Pulse - - Temperature 36.1 C (96.9 F) 07/06/2021 1:23 PM EDT Respiratory Rate - - Oxygen Saturation - - Inhaled Oxygen Concentration - - Weight 106 kg (234 lb 3.2 oz) 07/06/2021 1:23 PM EDT Height 175.3 cm (5' 9 ) 07/06/2021 1:23 PM EDT Body Mass Index 34.59 07/06/2021 1:23 PM EDT Plan of Treatment Health Maintenance Due Date Last Done Comments TDAP/TD VACCINES (1 - Tdap) 1980 COLOGUARD 2006 COLON CANCER SCREENING 5 YEAR SIGMOIDOSCOPY 2006 COLONOSCOPY [address]ER SCREENING [address] COLONOGRAPHY 2006 FECAL OCCULT BLOOD TEST 2006 FIT Testing (1 year) 2006 Pneumococcal Vaccine 50+ (1 of 1 - PCV) 2011 ZOSTER VACCINE (1 of 2) 2011 ANNUAL PHYSICAL 07/06/2021 HEPATITIS C SCREENING 07/06/2021 INFLUENZA VACCINE 06/12/[address] [place] [address] PPO Member Subscriber Plan / Payer (Ef fective 2019-Present) Name:Rudi Hyman Relation to Subscriber:Spouse Name:ANGELICA YHMAN Date of :1958 (Home) Address: [address] [place] [address] Payer ID:[id number] (NAIC) Type:Not on file Address: [facility] [id number] [place] [address] Care Teams Custom Bike Builder Relationship Specialty Start Date End Date Philipp Schwarz MD PCP - General Family Medicine 05/18/21
== END 2025-08-27 23:59 | disposition home or self-care (01) ==
LOC: RAD 09:35
PROVIDERS: PCP Nurse Practitioner; Visit Provider Nurse Practitioner
DX: K76.0 Fatty (change of) liver, not elsewhere classified (principal); R19.7 Diarrhea, unspecified
CPT/HCPCS: 76700